=== PATIENT | female | born 1990 | race Caucasian/White ===

== ENCOUNTER → 2016-05-08 | Outpatient (CLI) | payer BC ==
[2016-05-08 10:06] LABS: CH 31.1; CHCM 34.3; HCT 40.2 % (34.0-46.0); HDW 2.89; HGB 13.2 gm/dL (11.4-16.0); MCH 30.1 pg (25.0-35.0); MCHC 32.9 g/dL (31.0-37.0); MCV 91.4 fL (80.0-100.0); Mean Platelet Volume 7.7; RDW 14.1 % (11.5-15.5); WBC 5.3 k/uL (3.8-10.6)
[2016-05-08 10:22] LABS: Glucose 96 mg/dL (74-99); Non-African American GFR(MDRD) >60 (>60 ml/min/1.73 sqM)
[2016-05-08 10:53] LABS: Hepatitis B Surface Ag Index 0.06
== END | disposition home or self-care (01) ==
LOC: LABWHC1 09:40
PROVIDERS: ATTEND Obstetrics & Gynecology
DX: Z34.82 Encounter for supervision of other normal pregnancy, second trimester (principal); Z3A.00 Weeks of gestation of pregnancy not specified
CPT/HCPCS: 36415; 82565; 82947; 85027; 86762; 86780; 86850; 86900; 86901; 87340

== ENCOUNTER → 2016-08-03 | Outpatient (CLI) | payer BC ==
[2016-08-03 10:44] LABS: CHCM 33.8; HCT 34.7 % (34.0-46.0); HDW 3.38; HGB 11.6 gm/dL (11.4-16.0); MCHC 33.5 g/dL (31.0-37.0); MCV 92.3 fL (80.0-100.0); Mean Platelet Volume 7.6; RBC 3.76 m/uL (3.80-5.40); RDW 15.1 % (11.5-15.5); WBC 9.8 k/uL (3.8-10.6)
== END ==
LOC: LABWHC1 09:07
PROVIDERS: ATTEND Obstetrics & Gynecology
DX: Z34.92 Encounter for supervision of normal pregnancy, unspecified, second trimester (principal); Z3A.00 Weeks of gestation of pregnancy not specified
CPT/HCPCS: 36415; 82950; 85027

== ENCOUNTER → 2016-09-21 | Outpatient (CLI) | payer BC ==
[2016-09-21 12:14] LABS: Hemoglobin A1C 4.8 % (4.2-6.1)
== END | disposition home or self-care (01) ==
LOC: LABWHC1 09:38
PROVIDERS: ATTEND Pediatrics Neonatal-Perinatal Medicine
DX: O24.414 Gestational diabetes mellitus in pregnancy, insulin controlled (principal); Z3A.00 Weeks of gestation of pregnancy not specified
CPT/HCPCS: 36415; 82947; 83036

== ENCOUNTER 2016-10-03 09:02 | Outpatient (CLI) | payer BC ==
[2016-10-03 10:35] VITALS: BP 130/63; PULSE 101; RESP 18; TEMP 98.2
--- NOTE | 2016-10-05 18:51 | P.MSEPDOC ---
Presenting Problems - Arrival Data Date of Arrival on Unit: 10/03/16 Time of Arrival on Unit: 09:00 Mode of Transport: Ambulatory - Complaint OB-Reason for Admission/Chief Complaint: Decreased Movement Medical History - Information : 3 Para: 2 Term: 2 : 0 Abortions: Spontaneous or Elective: 0 Number of Living Children: 2 - Gestational Age Expected Date of Delivery: 11/13/16 Gestational Age by JANETTE (wks/days): 34 Weeks and 3 Days - History Complications: GDM Comment: insulin controlled gest diabetes Review of Systems - Review of Systems Constitutional: No problems Breast: No problems ENT: No problems Cardiovascular: No problems Respiratory: No problems Gastrointestinal: No problems Genitourinary: No problems Musculoskeletal: No problems Neurological: No problems Skin: No problems Vital Signs - Temperature Temperature: 98.2 F Temperature Source: Oral - Pulse Right Brachial Pulse Rate: 101 Pulse Assessment Method: Automatic Cuff - Respirations Respiratory Rate: 18 Oxygen Delivery Method: Room Air O2 Sat by Pulse Oximetry: 97 - Blood Pressure Right Arm Blood Pressure: 130/63 Blood Pressure Mean: 85 Blood Pressure Source: Automatic Cuff Medical Screen Scoring (Pre) - Cervical Exam Dilation: Exam Deferred Effacement: Exam Deferred Membranes: Intact - Uterine Contractions Frequency: N/A Duration: N/A Intensity: N/A - Maternal Vital Signs Maternal Temperature: N/A Maternal Blood Pressure: N/A Signs of Preeclampsia: N/A Maternal Respirations: N/A - Maternal Trauma Maternal Trauma: N/A - Assessment Baseline FHR: 150 Heart Rate - NICHD Category: Category I (Normal) = 0 NST: Reactive Position: N/A Station: N/A - Total Score Total Score (Pre): 0 - Level of Risk Level of Risk: N/A Physician Notification (Pre) - Physician Notified Physician/Practitioner Notifed:: TONYA Spoke With: TONYA New Order Received: Yes - Notification Comment Comment: DISCH HOME Medical Screen Scoring (Post) - Cervical Exam Dilation: Exam Deferred Effacement: Exam Deferred Membranes: Intact - Uterine Contractions Frequency: N/A Duration: N/A Intensity: N/A - Maternal Vital Signs Maternal Temperature: N/A Maternal Blood Pressure: N/A Signs of Preeclampsia: N/A Maternal Respirations: N/A - Maternal Trauma Maternal Trauma: N/A - Assessment Heart Rate: 150 Heart Rate - NICHD Category: Category I (Normal) = 0 Position: N/A Station: N/A - Total Score Total Score (Post): 0 - Post Treatment Level of Risk Post Treatment Level of Risk: N/A Physician Notification (Post) - Physician Notified Physician Notified Date: 10/03/16 Physician Notified Time: 09:30 Physician/Practitioner Notified:: tonya Spoke With: tonya New Order Received: Yes - Notification Comment Comment: disch home Disposition - Disposition OB Disposition: Discharge to home Discharge Date: 10/03/16 Discharge Time: 09:45 I agree with the RN Medical Screening Exam: Yes Risk & Benefit of care provided described in d/c instruction: Yes Diagnosis: DECREASED MOVEMENTS, THIRD TRIMESTER, UNSP
== END 2016-10-03 09:45 | disposition home or self-care (01) ==
LOC: FBPOP 09:02
PROVIDERS: ATTEND Obstetrics & Gynecology
DX: O36.8130 Decreased fetal movements, third trimester, not applicable or unspecified (principal); Z3A.34 34 weeks gestation of pregnancy
CPT/HCPCS: 59025; 99213

== ENCOUNTER 2016-10-11 13:04 | Outpatient (CLI) | payer BC ==
[2016-10-11 13:35] VITALS: BP 133/64; PULSE 109; RESP 16; TEMP 96.5
--- NOTE | 2016-10-11 17:33 | P.MSEPDOC ---
Presenting Problems - Arrival Data Date of Arrival on Unit: 10/11/16 Time of Arrival on Unit: 13:04 Mode of Transport: Ambulatory - Complaint OB-Reason for Admission/Chief Complaint: Rule Out PROM Medical History - Information : 3 Para: 2 Term: 2 : 0 Abortions: Spontaneous or Elective: 0 Number of Living Children: 2 - Gestational Age Expected Date of Delivery: 11/13/16 Gestational Age by JANETTE (wks/days): 35 Weeks and 2 Days - History Complications: GDM Review of Systems - Review of Systems Constitutional: No problems Breast: No problems ENT: No problems Cardiovascular: No problems Respiratory: No problems Gastrointestinal: No problems Genitourinary: No problems Musculoskeletal: No problems Neurological: No problems Skin: No problems Vital Signs - Temperature Temperature: 96.5 F Temperature Source: Temporal Artery Scan - Pulse Right Brachial Pulse Rate: 109 Pulse Assessment Method: Automatic Cuff - Respirations Respiratory Rate: 16 Oxygen Delivery Method: Room Air O2 Sat by Pulse Oximetry: 96 - Blood Pressure Right Arm Blood Pressure: 133/64 Blood Pressure Mean: 87 Blood Pressure Source: Automatic Cuff Medical Screen Scoring (Pre) - Cervical Exam Dilation: 1-3 cm = 1 Effacement: More than 50% = 2 Membranes: Intact - Uterine Contractions Frequency: N/A Duration: > 40 seconds = 2 Intensity: N/A - Maternal Vital Signs Maternal Temperature: N/A Maternal Blood Pressure: N/A Signs of Preeclampsia: N/A Maternal Respirations: N/A - Maternal Trauma Maternal Trauma: N/A - Assessment Baseline FHR: 145 Heart Rate - NICHD Category: Category I (Normal) = 0 NST: Reactive Position: N/A Station: N/A - Total Score Total Score (Pre): 5 - Level of Risk Level of Risk: Low (0-5) Physician Notification (Pre) - Physician Notified Physician Notified Date: 10/11/16 Physician Notified Time: 13:45 Physician/Practitioner Notifed:: Dr Zelaya Spoke With: Dr Zelaya New Order Received: Yes (ks home) Disposition - Disposition OB Disposition: Discharge to home, Written follow up instructions reviewed Discharge Date: 10/11/16 Discharge Time: 13:55 I agree with the RN Medical Screening Exam: Yes Risk & Benefit of care provided described in d/c instruction: Yes Diagnosis: 35 WEEKS GESTATION OF
== END 2016-10-11 13:55 | disposition home or self-care (01) ==
LOC: FBPOP 13:04
PROVIDERS: ATTEND Obstetrics & Gynecology
DX: O26.93 Pregnancy related conditions, unspecified, third trimester (principal); Z3A.35 35 weeks gestation of pregnancy
CPT/HCPCS: 59025; 84112; 99213

== ENCOUNTER 2016-10-28 21:00 | Outpatient (CLI) | payer BC ==
[2016-10-28 21:13] LABS: Glucose,Whole Blood 179 mg/dL (75-99)
[2016-10-28 23:20] VITALS: BP 135/68; PULSE 107; RESP 18; TEMP 97.4
--- NOTE | 2016-10-29 07:45 | P.MSEPDOC ---
Presenting Problems - Arrival Data Date of Arrival on Unit: 10/28/16 Time of Arrival on Unit: 21:03 Mode of Transport: Wheelchair - Complaint OB-Reason for Admission/Chief Complaint: Possible Onset of Labor Medical History - Information : 3 Para: 2 Term: 2 : 0 Abortions: Spontaneous or Elective: 0 Number of Living Children: 2 - Gestational Age Expected Date of Delivery: 11/13/16 Gestational Age by JANETTE (wks/days): 37 Weeks and 6 Days - History Complications: GDM, Prior Review of Systems - Review of Systems Constitutional: No problems Breast: No problems ENT: No problems Cardiovascular: No problems Respiratory: No problems Gastrointestinal: No problems Genitourinary: No problems Musculoskeletal: No problems Neurological: No problems Skin: No problems Vital Signs - Temperature Temperature: 97.4 F Temperature Source: Temporal Artery Scan - Pulse Right Brachial Pulse Rate: 107 Pulse Assessment Method: Automatic Cuff - Respirations Respiratory Rate: 18 Oxygen Delivery Method: Room Air - Blood Pressure Right Arm Blood Pressure: 135/68 Blood Pressure Mean: 90 Blood Pressure Source: Automatic Cuff Medical Screen Scoring (Pre) - Cervical Exam Dilation: 1-3 cm = 1 Effacement: Exam Deferred Membranes: Intact - Uterine Contractions Frequency: Scheduled / = 6 Duration: > 40 seconds = 2 - Maternal Vital Signs Maternal Temperature: N/A Maternal Blood Pressure: N/A Signs of Preeclampsia: N/A Maternal Respirations: N/A - Maternal Trauma Maternal Trauma: N/A - Assessment Baseline FHR: 145 Heart Rate - NICHD Category: Category I (Normal) = 0 NST: Reactive Position: N/A Station: +1 to = 1 - Total Score Total Score (Pre): 10 - Level of Risk Level of Risk: High (10+) Physician Notification (Pre) - Physician Notified Physician Notified Date: 10/28/16 Physician Notified Time: 22:40 Physician/Practitioner Notifed:: Dr. Cruz Spoke With: Dr. Cruz New Order Received: Yes - Notification Comment Comment: recheck cervical exam in one hour, if no change dischage pt home Medical Screen Scoring (Post) - Cervical Exam Dilation: 1-3 cm = 1 Effacement: More than 50% = 2 Membranes: Intact - Uterine Contractions Frequency: > 5 minutes apart = 1 Duration: N/A Intensity: N/A - Maternal Vital Signs Maternal Temperature: N/A Maternal Blood Pressure: N/A Signs of Preeclampsia: N/A Maternal Respirations: N/A - Maternal Trauma Maternal Trauma: N/A - Assessment Heart Rate: 145 Heart Rate - NICHD Category: Category I (Normal) = 0 NST: Reactive Position: N/A - Total Score Total Score (Post): 4 - Post Treatment Level of Risk Post Treatment Level of Risk: Low (0-5) Physician Notification (Post) - Physician Notified Physician Notified Date: 10/28/16 Physician Notified Time: 22:40 Physician/Practitioner Notified:: Dr. Cruz Spoke With: Dr. Cruz New Order Received: Yes - Notification Comment Comment: pt to be discharged home if no cervical change Disposition - Disposition OB Disposition: Discharge to home, Written follow up instructions reviewed Discharge Date: 10/29/16 Discharge Time: 00:05 I agree with the RN Medical Screening Exam: Yes Risk & Benefit of care provided described in d/c instruction: Yes Diagnosis: FALSE LABOR AT OR AFTER 37 COMPLETED WEEKS OF GESTATION
== END 2016-10-29 00:05 | disposition home or self-care (01) ==
LOC: FBPOP 21:00
PROVIDERS: ATTEND Obstetrics & Gynecology
DX: O47.1 False labor at or after 37 completed weeks of gestation (principal); Z3A.37 37 weeks gestation of pregnancy
CPT/HCPCS: 59025; 99213

== ENCOUNTER 2016-11-01 12:02 | Outpatient (CLI) | payer BC | END 2016-11-01 12:59 | disposition home or self-care (01) | LOC: FBPOP 12:02 | PROVIDERS: ATTEND Obstetrics & Gynecology | DX: O26.93 Pregnancy related conditions, unspecified, third trimester (principal); Z3A.38 38 weeks gestation of pregnancy | CPT/HCPCS: 59025; 99213 ==

== ENCOUNTER 2016-11-04 06:16 | Inpatient (IN) | payer BC ==
[2016-11-03 14:06] VITALS: BMI 42.8
--- NOTE | 2016-11-03 20:35 | P.HPOB ---
History of Present Illness H&P Date: 11/03/16 Chief Complaint: Scheduled repeat section with tubal ligation This is a 26-year-old female 3 para 2, with an estimated gestational age of 39 weeks, estimated date of confinement of 11/11/2016, who presents to labor and delivery for scheduled repeat section with bilateral partial salpingectomy. She has a history of 2 previous deliveries. Her has been complicated by gestational diabetes on insulin. This has been fairly well-controlled with increasing insulin doses. She has felt frequent contractions. She does feel good movement. She has been doing twice weekly nonstress tests and has followed with maternal medicine due to gestational diabetes. labs: Random glucose-96 Hepatitis B surface antigen-negative Hemoglobin-13.2 Syphilis antibody-nonreactive Rubella-low positive Blood type-O+ Antibody screen-negative GC/chlamydia-negative One hour Glucola-208 Group B streptococcus-negative Review of Systems Constitutional: Denies chills, Denies fever Eyes: denies blurred vision Ears, nose, mouth and throat: Denies headache, Denies sore throat Cardiovascular: Reports dyspnea on exertion, Reports leg edema, Reports shortness of breath Respiratory: Denies cough, Denies wheezing Gastrointestinal: Reports abdominal pain (Irregular contractions) Genitourinary: Reports pelvic pain, Reports Musculoskeletal: Reports low back pain Integumentary: Denies pruritus, Denies rash Psychiatric: Denies anxiety, Denies depression Past Medical History Past Medical History: Asthma Additional Past Medical History / Comment(s): gestational DIABETES History of Any Multi-Drug Resistant Organisms: None Reported Past Surgical History: Section (x2), Cholecystectomy Past Anesthesia/Blood Transfusion Reactions: No Reported Reaction Past Psychological History: No Psychological Hx Reported Smoking Status: Never smoker Past Alcohol Use History: None Reported Past Drug Use History: None Reported - Past Family History Mother Family Medical History: No Reported History Medications and Allergies Home Medications Medication Instructions Recorded Confirmed Type Pnv,Calcium 72/Iron/Folic Acid 1 tab PO DAILY 07/21/16 11/03/16 History [ Plus Tablet] Insulin Detemir [Levemir] 36 unit SQ HS 10/03/16 11/03/16 History Insulin Aspart [NovoLOG Flexpen] 12 units SQ AC-BRKFST 10/28/16 11/03/16 History Insulin Aspart [NovoLOG Flexpen] 14 units SQ AC-BID 10/28/16 11/03/16 History Allergies Allergy/AdvReac Type Severity Reaction Status Date / Time Penicillins Allergy Intermediate Rash/Hives Verified 11/03/16 14:00 Sulfa (Sulfonamide Allergy Swelling Verified 11/03/16 14:00 Antibiotics) shrimp Allergy Anaphylaxis Uncoded 11/03/16 14:00 Exam Osteopathic Statement: *. No significant issues noted on an osteopathic structural exam other than those noted in the History and Physical/Consult. - Vital Signs Vital signs: Intake and Output 11/03/16 11/03/16 11/03/16 06:59 14:59 22:59 Other: Weight 109.769 kg Patient Weight 11/04/16 06:59 Weight 109.769 kg HEENT: Within normal limits Heart: Regular rate and rhythm Lungs: Clear to auscultation bilaterally Abdomen: , fundal height of 46-1/2 cm heart tones: 140s, reactive Contractions: Irregular Extremities: Trace edema Cervix exam at her last appointment was 2-1/2 cm/60%/-3. Assessment and Plan (1) 39 weeks gestation of Status: Acute (2) Previous delivery affecting Status: Acute (3) Family planning Status: Acute (4) Gestational diabetes mellitus in , insulin controlled Status: Acute Plan: Plan is to proceed with repeat section with bilateral partial salpingectomy. Will monitor her blood sugars after delivery due to gestational diabetes on insulin. I have discussed the risks, benefits, and alternative therapies for the above- mentioned procedure and for both sedation/anesthesia as well as necessary blood products administration, if indicated, as they pertain to this patient. The patient has indicated her understanding and acceptance of the risks and procedures discussed.
[2016-11-04] MEDS ORDERED: LIDOCAINE 1% 20 ML VIAL (10MG/ML) FOR IV START INTRADERMA PRN (06:18)
[2016-11-04] MEDS ORDERED: CITRIC ACID-SODIUM CITRATE 15 ML CUP PO ONE (06:18)
[2016-11-04] MEDS ORDERED: LACTATED RINGERS 1,000 ML IV ONE (06:18)
[2016-11-04] MEDS ORDERED: CLINDAMYCIN 900 MG in DEXTROSE 5% IN WATER 50 ML IVPB STA ×2 (06:18)
[2016-11-04] MEDS ORDERED: LACTATED RINGERS 1,000 ML IV SCH ×2 (06:18→09:00)
[2016-11-04 06:29] LABS: Anisocytosis Slight; Basophils # (A) 0.1 k/uL (0-0.2); Basophils % (A) 1 %; CH 27.3; CHCM 33.2; Eosinophils # (A) 0.1 k/uL (0-0.7); Eosinophils % (A) 2 %; HCT 31.3 % (34.0-46.0); HDW 4.12; HGB 10.4 gm/dL (11.4-16.0); Hypochromasia Slight; Luc # (Auto) 0.23; Luc % (Auto) 3; Lymphocytes # (A) 0.9 k/uL (1.0-4.8); Lymphocytes % (A) 10 %; MCH 27.7 pg (25.0-35.0); MCHC 33.4 g/dL (31.0-37.0); MCV 82.9 fL (80.0-100.0); Mean Platelet Volume 8.5; Monocytes # (A) 0.4 k/uL (0-1.0); Monocytes % (A) 5 %; Neutrophils # (A) 7.1 k/uL (1.3-7.7); Neutrophils % (A) 80 %; Poikilocytosis Moderate; RBC 3.77 m/uL (3.80-5.40); RDW 16.3 % (11.5-15.5); WBC 8.9 k/uL (3.8-10.6); WBC (Perox) 8.43
[2016-11-04 06:39] LABS: Glucose,Whole Blood 91 mg/dL (75-99)
[2016-11-04] MEDS ORDERED: OXYTOCIN 10 UNIT/ML 1 ML VIAL ONE (08:00)
[2016-11-04] MEDS ORDERED: MORPHINE SULFATE (PF) 0.3 MG/0.3 ML SYR ONE (08:00)
[2016-11-04] MEDS ORDERED: NALBUPHINE 10 MG/ML AMPUL ONE (08:00)
[2016-11-04] MEDS ORDERED: ONDANSETRON 4 MG/2 ML VIAL ONE (08:00)
[2016-11-04] MEDS ORDERED: MORPHINE SULFATE 4 MG/ML SYRINGE IVP PRN (08:44)
[2016-11-04] MEDS ORDERED: diphenhydrAMINE 50 MG/ML 1 ML VIAL IVP PRN ×3 (08:44→09:00)
[2016-11-04] MEDS ORDERED: ONDANSETRON 4 MG/2 ML VIAL IVP PRN ×2 (08:44→09:00)
[2016-11-04] MEDS ORDERED: NALOXONE 0.4 MG/ML 1 ML VIAL IV PRN ×2 (08:44→09:00)
--- NOTE | 2016-11-04 08:48 | P.OP ---
Date of Procedure: 11/04/16 Preoperative Diagnosis: 1. Intrauterine at 39-0/7 weeks. 2. History of previous section 2. 3. Family-planning. 4. Gestational diabetes on insulin. Postoperative Diagnosis: Same Procedure(s) Performed: Repeat low transverse section with bilateral partial salpingectomy Implants: Anesthesia: spinal (Duramorph) Surgeon: Yvonne Cruz Hotel Attendant #1: Sung Bennett Estimated Blood Loss (ml): 400 Pathology: other (Placenta, portions of right and left fallopian tubes) Condition: stable Disposition: floor Indications for Procedure: This is a 26-year-old female 3 para 2 with an estimated date of confinement of 11/11/2016, estimated gestational age of 39-0/7 weeks, who presents to labor and delivery for scheduled repeat section with bilateral partial salpingectomy. I have discussed the risks, benefits, and alternative therapies for the above- mentioned procedure and for both sedation/anesthesia as well as necessary blood products administration, if indicated, as they pertain to this patient. The patient has indicated her understanding and acceptance of the risks and procedures discussed. Operative Findings: A viable female is noted in the vertex presentation with scores of 9 at 1 minute and 9 at 5 minutes and infant weight of 10 lbs. 1 oz. Normal uterus tubes and ovaries are noted. There were noted to be some omental adhesions to the anterior abdominal wall. Description of Procedure: The patient is taken to the operating room where she is placed in the dorsal supine position with leftward tilt after spinal Duramorph anesthesia is given. She is prepped and draped in the normal sterile fashion. Skin was tested and found to be adequately anesthetized. A Pfannenstiel skin incision was made with a scalpel through the previous laparotomy scar. A second knife was used to carry the incision down to the underlying layer of fascia. The fascia was nicked in the midline with a scalpel and then extended laterally bilaterally with Madsne scissors. The anterior lip of the fascia was grasped with 2 Bea clamps and then dissected off the underlying rectus muscle in the midline with Madsen scissors. The inferior aspect of the fascial incision was grasped with 2 Bea clamps and dissected off the underlying rectus muscle and the midline with Madsen scissors. Next the peritoneum layer was tented up with 2 hemostats and then entered bluntly with a hemostat. The incision is extended superiorly and inferiorly with Metzenbaum scissors. Omental adhesions are noted to be attached to the anterior abdominal wall. Next a DeLee retractor is placed. The vesicouterine peritoneum is entered sharply with Metzenbaum scissors and extended laterally bilaterally with Metzenbaum scissors and then the bladder flap is pushed inferiorly. The lower uterine segment is incised in transverse fashion with the scalpel and then bluntly entered with a hemostat. Clear fluid is noted. The incision was then extended laterally bilaterally with 2 fingers. Next the infant's head is delivered through the incision. Nose and mouth are bulb suctioned. The remainder of the is easily delivered and placed on mother's abdomen. Cord is clamped and cut. is taken to warmer by nursing staff. Uterine fundus is gently massaged and placenta is delivered manually. Uterus is exteriorized and cleared of all clots and debris. Uterine incision is closed with 0 Vicryl suture in a running locked fashion. A second layer of 0 Vicryl suture is used in a running fashion for hemostasis. The bladder flap was not reapproximated due to previous scarring. Attention is then turned to the tubes. The right fallopian tube is grasped in the midportion with a hemostat. The mesosalpinx is entered with Bovie cautery. Next 0 Vicryl suture is tied 2 times around both the proximal and distal portion of the tube. Next the knuckle of tube is removed with Metzenbaum scissors and removed from the field. The ends of the tube were then cauterized with Bovie cautery. Excellent hemostasis is noted. The same procedure is carried out on the left fallopian tube. Posterior cul-de-sac is suctioned of all clots and debris. Uterus is returned to the abdomen. Incision is noted to be hemostatic. Both tubal sites are visualized and appear hemostatic. Peritoneal layer is closed with 0 Vicryl suture in a running fashion. Muscle layer is reapproximated with 0 Vicryl suture in interrupted fashion. Fascia layer is then closed with 0 PDS suture with 2 sutures meeting in the midline and the knots buried in either side and in the midline. The subcutaneous tissue was then closed with 2-0 Vicryl suture. Skin layer was then closed with huong. All sponge and needle counts are correct. The patient is taken to recovery room in stable condition.
[2016-11-04] MEDS ORDERED: SIMETHICONE 80 MG CHEWABLE PO PRN (09:00)
[2016-11-04] MEDS ORDERED: OXYTOCIN 20 UNITS/1000 ML NS 1,000 ML IV SCH (09:00)
[2016-11-04] MEDS ORDERED: LANOLIN CREAM 5 GM TUBE TOPICAL PRN (09:00)
[2016-11-04] MEDS ORDERED: ZOLPIDEM 5 MG TAB PO PRN (09:00)
[2016-11-04] MEDS ORDERED: diphenhydrAMINE 25 MG CAP PO PRN (09:00)
[2016-11-04] MEDS ORDERED: diphenhydrAMINE 50 MG CAP PO PRN (09:00)
[2016-11-04] MEDS ORDERED: MEASLES-MUMPS-RUBELLA VACC/PF 12,500 UNIT/0.5 ML VIAL SQ ONE (09:00)
[2016-11-04] MEDS ORDERED: ACETAMINOPHEN TAB 325 MG TAB PO PRN (09:00)
[2016-11-04] MEDS ORDERED: METOCLOPRAMIDE 5 MG/ML 2 ML VIAL IVP PRN (09:00)
[2016-11-04] MEDS ORDERED: Acetaminophen-Codeine 300-30mg TAB PO PRN (09:00)
[2016-11-04] MEDS: KETOROLAC 30 MG/ML 1 ML VIAL IVP PRN ×2 (09:42→16:45)
[2016-11-04 10:45] LABS: Hemoglobin A1C 5.3 % (4.2-6.1)
[2016-11-04 10:57] LABS: Glucose,Whole Blood 89 mg/dL (75-99)
[2016-11-04 12:11] LABS: Glucose,Whole Blood 93 mg/dL (75-99)
[2016-11-04] MEDS: PRENATAL VIT-IRON-FOLIC ACID 1 EACH CAP PO SCH (13:48)
[2016-11-04] MEDS: SENNOSIDES-DOCUSATE SODIUM 1 EACH TAB PO SCH ×2 (13:48→23:08)
[2016-11-04 14:32] LABS: Glucose,Whole Blood 103 mg/dL (75-99)
[2016-11-04 18:08] LABS: Glucose,Whole Blood 95 mg/dL (75-99)
[2016-11-04 18:30] LABS: Glucose,Whole Blood 93 mg/dL (75-99)
[2016-11-04 21:30] LABS: Glucose,Whole Blood 101 mg/dL (75-99)
[2016-11-05] MEDS: KETOROLAC 30 MG/ML 1 ML VIAL IVP PRN ×2 (02:26→09:57)
[2016-11-05 07:41] LABS: Anisocytosis Slight; Basophils % (A) 0 %; CH 26.7; CHCM 31.8; Eosinophils # (A) 0.1 k/uL (0-0.7); Eosinophils % (A) 1 %; HCT 29.5 % (34.0-46.0); HDW 4.12; HGB 9.5 gm/dL (11.4-16.0); Hypochromasia Moderate; Luc # (Auto) 0.23; Luc % (Auto) 3; Lymphocytes # (A) 0.7 k/uL (1.0-4.8); Lymphocytes % (A) 9 %; MCH 27.4 pg (25.0-35.0); MCHC 32.3 g/dL (31.0-37.0); MCV 84.8 fL (80.0-100.0); Mean Platelet Volume 8.4; Monocytes # (A) 0.4 k/uL (0-1.0); Monocytes % (A) 5 %; Neutrophils # (A) 6.6 k/uL (1.3-7.7); Neutrophils % (A) 81 %; Poikilocytosis Moderate; RBC 3.47 m/uL (3.80-5.40); RDW 16.5 % (11.5-15.5); WBC 8.1 k/uL (3.8-10.6); WBC (Perox) 8.47
[2016-11-05] MEDS ORDERED: NALBUPHINE 10 MG/ML AMPUL ONE (08:00)
[2016-11-05] MEDS ORDERED: ONDANSETRON 4 MG/2 ML VIAL ONE (08:00)
[2016-11-05] MEDS ORDERED: OXYTOCIN 10 UNIT/ML 1 ML VIAL ONE (08:00)
[2016-11-05] MEDS ORDERED: MORPHINE SULFATE (PF) 0.3 MG/0.3 ML SYR ONE (08:00)
[2016-11-05 08:05] LABS: Glucose,Whole Blood 99 mg/dL (75-99)
--- NOTE | 2016-11-05 08:52 | P.PNOBGPC ---
Subjective - Subjective Principal diagnosis: Status post repeat section with tubal postoperative day #1 Interval history: Patient is doing well. She is passing flatus but no bowel movement yet. She is ambulating. Pain is fairly well controlled. She is still not been able to urinate yet. This did happen last and she was able to urinate once she got shower. Will attempt that this morning. Patient reports: Reports appetite normal, Reports pain well controlled, Reports ambulating normally, Denies voiding normally : doing well, nursing well Objective - Vital Signs Latest vital signs: Vital Signs Temp Pulse Resp BP Pulse Ox 11/05/16 04:00 98.3 F 73 18 100/51 98 11/04/16 23:48 98.6 F 78 18 118/60 98 11/04/16 20:00 98.6 F 73 16 115/68 97 11/04/16 16:00 98.2 F 72 16 111/62 99 11/04/16 12:00 97 11/04/16 10:37 97.7 F 93 16 102/53 11/04/16 10:20 97.8 F 11/04/16 10:07 85 16 119/60 11/04/16 09:45 97 11/04/16 09:37 81 16 119/55 11/04/16 09:22 98.1 F 79 16 134/64 11/04/16 09:07 82 16 132/70 11/04/16 08:52 92 16 132/70 Intake and Output 11/04/16 11/05/16 11/05/16 22:59 06:59 14:59 Intake Total 400 Output Total 20 1000 Balance 380 -1000 Intake: IV 400 Invasive Line 1 400 Output: Urine 20 600 Uretheral (Simpson) 600 Estimated Blood Loss 400 Other: # Voids 1 0 - Exam Extremities: Present: normal, edema (Trace). Absent: tenderness Abdomen: Present: normal appearance, soft (Positive bowel sounds 4). Absent: distention, tenderness Incision: Present: normal, dry, intact. Absent: erythematous Uterus: Present: normal, firm. Absent: tenderness - Labs Labs: Abnormal Lab Results - Last 24 Hours (Table) 11/04/16 11/04/16 11/05/16 Range/Units 14:22 21:27 07:16 RBC 3.47 L (3.80-5.40) m/uL Hgb 9.5 L (11.4-16.0) gm/dL Hct 29.5 L (34.0-46.0) % RDW 16.5 H (11.5-15.5) % Plt Count 134 L (150-450) k/uL Lymphocytes # 0.7 L (1.0-4.8) k/uL POC Glucose (mg/dL) 103 H 101 H (75-99) mg/dL Assessment and Plan (1) 39 weeks gestation of Narrative/Plan: Impression is status post repeat low transverse section with bilateral partial salpingectomy postoperative day #1. Plan is to get in the shower this morning and attempt urination. If she is unable to urinate, will straight cath again. She is tolerating regular diet at this time. Pain is well-controlled. We'll continue with postoperative care and anticipate discharge home hopefully tomorrow. Current Visit: Yes Status: Acute Code(s): Z3A.39 - 39 WEEKS GESTATION OF SNOMED Code(s): 52001838 (2) Previous delivery affecting Current Visit: Yes Status: Acute Code(s): O34.219 - MATERNAL CARE FOR UNSP TYPE SCAR FROM PREVIOUS DEL SNOMED Code(s): 537111879 (3) Family planning Current Visit: Yes Status: Acute Code(s): Z30.09 - ENCOUNTER FOR OTH GENERAL CNSL AND ADVICE ON CONTRACEPTION SNOMED Code(s): 25741976 (4) Gestational diabetes mellitus in , insulin controlled Current Visit: Yes Status: Acute Code(s): O24.414 - GESTATIONAL DIABETES IN , INSULIN CONTROLLED SNOMED Code(s): 00706530
--- NOTE | 2016-11-05 09:18 | P.PN ---
Progress Note - Text 0742 Anesthesia POD 1. Patient is status post section under spinal anesthesia with intra-thecal preservative free morphine 300 g. Minimal pruritus, good post-op analgesia requiring Toradol 1, and no headache or other complication. Patient did have some bouts of nausea postoperatively, but I doubt this was related to the intrathecal narcotic it was more likely due to some adynamic ileus
[2016-11-05] MEDS: SENNOSIDES-DOCUSATE SODIUM 1 EACH TAB PO SCH ×2 (11:36→21:39)
[2016-11-05 12:22] LABS: Glucose,Whole Blood 93 mg/dL (75-99)
[2016-11-05] MEDS: IBUPROFEN 600 MG TAB PO PRN ×2 (16:32→21:49)
[2016-11-05] MEDS: Acetaminophen-Codeine 300-30mg TAB PO PRN ×2 (18:22→23:08)
[2016-11-05 21:45] LABS: Glucose,Whole Blood 121 mg/dL (75-99)
[2016-11-06] MEDS: IBUPROFEN 600 MG TAB PO PRN ×2 (03:47→11:02)
[2016-11-06] MEDS: SENNOSIDES-DOCUSATE SODIUM 1 EACH TAB PO SCH (07:40)
[2016-11-06] MEDS: Acetaminophen-Codeine 300-30mg TAB PO PRN (07:41)
[2016-11-06] MEDS: PRENATAL VIT-IRON-FOLIC ACID 1 EACH CAP PO SCH (08:11)
[2016-11-06 08:14] LABS: Glucose,Whole Blood 90 mg/dL (75-99)
[2016-11-06 09:46] VITALS: BP 122/77; PULSE 76; RESP 16; TEMP 97.7
--- NOTE | 2016-11-06 12:00 | P.DS ---
Providers Date of admission: 11/04/16 06:16 Expected date of discharge: 11/06/16 Attending physician: Yvonne Cruz Primary care physician: Stated None Hospital Course: Patient presented for repeat low transverse with tubal ligation. She underwent this procedure without complication. She'll be discharged home postoperative day #2 in stable condition to follow-up with Dr. Cruz in one week. She denies nausea, vomiting, chest pain, shortness of breath or calf pain. Her incision is clean, dry, intact. Plan - Discharge Summary New Discharge Prescriptions: New Acetaminophen-Codeine 300-30mg [Tylenol w/codeine #3] 1 each PO Q4HR PRN #30 tab PRN Reason: Mild Pain Ibuprofen [Motrin] 600 mg PO Q6HR PRN #60 tab PRN Reason: Mild Pain Or Fever >= 100.5 Continue Pnv,Calcium 72/Iron/Folic Acid [ Plus Tablet] 1 tab PO DAILY No Action Insulin Detemir [Levemir] 36 unit SQ HS Insulin Aspart [NovoLOG Flexpen] 12 units SQ AC-BRKFST Insulin Aspart [NovoLOG Flexpen] 14 units SQ AC-BID Discharge Medication List Pnv,Calcium 72/Iron/Folic Acid [ Plus Tablet] 1 tab PO DAILY 07/21/16 [ History] Insulin Detemir [Levemir] 36 unit SQ HS 10/03/16 [History] Insulin Aspart [NovoLOG Flexpen] 12 units SQ AC-BRKFST 10/28/16 [History] Insulin Aspart [NovoLOG Flexpen] 14 units SQ AC-BID 10/28/16 [History] Acetaminophen-Codeine 300-30mg [Tylenol w/codeine #3] 1 each PO Q4HR PRN #30 tab 11/05/16 [Rx] Ibuprofen [Motrin] 600 mg PO Q6HR PRN #60 tab 11/05/16 [Rx] Follow up Appointment(s)/Referral(s): Yvonne Cruz DO [Doctor of Osteopathic Medicine] - 1 Week Activity/Diet/Wound Care/Special Instructions: Instructions 1. Do not begin any exercise program for 3 weeks. 2. Do not resume sexual relations for 3 weeks or longer if uncomfortable. 3. You may take tub baths or showers at any time. 4. You may use tampons if desired after 3 weeks. 5. Keep the area of episiotomy (stitches) clean and dry. 6. If you are not nursing, wear a good fitting, supportive bra during the day and limit fluid intake for at least 1 week to prevent breast engorgement. 7. Call the office, [phone], within the next week to make appointment for your 6 week checkup if it has not already been made. 8. Report any of the following occurrences to the doctor promptly: a. Heavy, excessive bleeding b. Chills, fever c. Burning or frequency of urination d. Pain or redness and breasts if nursing e. Increasing pain or swelling in episiotomy (stitches). In addition to the above instructions, the following additional should be followed: 1. No heavy lifting or straining (exercising) until after 6 week checkup. 2. Keep abdominal incision clean and dry: You may wear a dressing if more comfortable. 3. Make office appointment for 10 days after going home or as instructed by her doctor. Discharge Disposition: HOME SELF-CARE
--- NOTE | 2016-11-09 10:38 | CDI ---
In responding to this query, please exercise your independent professional judgment. The [facility] Coding Staff and Clinical Documentation Specialists appreciate your assistance in clarifying documentation, maintaining compliance with coding guidelines, accurately documenting patients condition and capturing severity of illness. The fact that a question is asked does not imply that any particular answer is desired or expected. Communication forms are a method of clarifying documentation and are not made part of the Legal Health Record. Thank you in advance for your clarification. Last Revision, July 2015 Shekhar Hwang [address] [facility] [place] [address] Documentation Clarification Form Date: 11/09/2016 10:18:00 AM From: Glenny Schaffer Admit Date: 11/04/2016 6:16:00 AM Patient Name: Diane Paredes Visit Number: [id number] Discharge Date: 11/06/16 Dr. Yvonne Cruz The patient underwent repeat low transverse section with bilateral partial salpingectomy on 11/04. Anesthesia postop progress note 11/05 states "Yolanda did have some bouts of nauseas postoperatively, but I doubt this was related to the intrathecal narcotic it was more likely due to some adynamic ileus. She received IV Zofran. No abdominal x-rays, no NG tube, no rectal tube, no Prostimin injection and was on a regular diet. In your clinical judgment, is the adynamic ileus: A postprocedural intestional obstruction An obstructive ileus A paralytic ileus (adynamic ileus) Other, please specifiy Clinically unable to determine Please document your addendum in the discharge summary or progress note. If this condition was ruled out or documented in error, please indicate in your discharge summary or progress note. FYI: Press F11 to launch patient chart _X____ Place X here if this finding has no clinical significance, is not applicable or if you are not able to provide any additional documentation. KJ Dixon, CCS, [facility] Certified I-10 Subgrade Tester/Display Manager/Subgrade Tester II If you have any questions or concerns please contact Fany Tran, Serging Machine Operator, Shekhar Hwang @ [phone] [facility]
--- NOTE | 2016-11-09 10:57 | CDI ---
In responding to this query, please exercise your independent professional judgment. The [facility] Coding Staff and Clinical Documentation Specialists appreciate your assistance in clarifying documentation, maintaining compliance with coding guidelines, accurately documenting patients condition and capturing severity of illness. The fact that a question is asked does not imply that any particular answer is desired or expected. Communication forms are a method of clarifying documentation and are not made part of the Legal Health Record. Thank you in advance for your clarification. Last Revision, July 2015 Shekhar Hwang [address] [place] [address] Documentation Clarification Form Date: 11/09/2016 10:39:00 AM From: Glenny Sarbjit Admit Date: 11/04/2016 6:16:00 AM Patient Name: Diane Paredes Visit Number: [id number] Discharge Date: 11/06/16 Dr. Yvonne Cruz 26 year old female s/p repeat low transverse section with tubal ligation. PN 11/05 states she is unable to urinate. This happen last and she was able to urinate once she got shower. The plan, unalbe to urinate, will straight cath. Per nursing documentation she was cathed on 11/05 @ 0200 with urine output of 600 ml. Urine output 11/05 @ 0945 was 900 ml and 11/05 @ 1239 800 ml. In your clinical judgment is the urinary retention: An expected post-procedural or post-surgical condition (not clinically significant or related to) Integral to the procedure Inhernet to the procedure An unexpected post-procedural or post-surgical condition related to surgical care, Other, please specify Clinically unable to determine Please document confirmation of the diagnosis in your progress notes and/or discharge summary, along with its associated clinical indicators (i.e., signs, symptoms, findings, treatments, monitoring). If this condition was ruled out or documented in error, please indicate in your progress notes and/or discharge summary. FYI: Press F11 to launch patient chart Place X here if this finding has no clinical significance, is not applicable or if you are not able to provide any additional documentation. KJ Dixon, [facility], [facility] Certified I-10 Crystal Flat Grinder/Student Development Coordinator/Crystal Flat Grinder II If you have any questions or concerns please contact Fany Tran, Director Business Integration, Shekhar Hwang @ [phone] [facility]
== END 2016-11-06 13:10 | disposition home or self-care (01) | DRG 766 ==
LOC: 4FBP 06:16
PROVIDERS: ADMIT Obstetrics & Gynecology; ATTEND Obstetrics & Gynecology
PROC: 0UB70ZZ Excision of Bilateral Fallopian Tubes, Open Approach (ICD-10-PCS; 2016-11-04)
PROC: 3E0134Z Introduction of Serum, Toxoid and Vaccine into Subcutaneous Tissue, Percutaneous Approach (ICD-10-PCS; 2016-11-04)
PROC: 10D00Z1 Extraction of Products of Conception, Low, Open Approach (ICD-10-PCS; principal; 2016-11-04 08:00)
DX: O34.211 Maternal care for low transverse scar from previous cesarean delivery (principal); O24.424 Gestational diabetes mellitus in childbirth, insulin controlled; J45.909 Unspecified asthma, uncomplicated; O99.52 Diseases of the respiratory system complicating childbirth; R33.9 Retention of urine, unspecified; Z23 Encounter for immunization; Z30.2 Encounter for sterilization; Z37.0 Single live birth; Z3A.39 39 weeks gestation of pregnancy; Z79.4 Long term (current) use of insulin; Z79.899 Other long term (current) drug therapy
CPT/HCPCS: 83036; 85025; 86850; 86900; 86901; 88302; 88307; 90471; 90707

== ENCOUNTER 2017-07-12 10:56 | Emergency (ER) | payer BC, MEDICAID ==
[2017-07-12 11:46] VITALS: RESP 18
[2017-07-12] MEDS ORDERED: ONDANSETRON 4 MG/2 ML VIAL IVP STA (13:43)
[2017-07-12] MEDS ORDERED: SODIUM CHLORIDE 0.9% 500 ML IV STA (13:43)
[2017-07-12] MEDS ORDERED: SODIUM CHLORIDE 0.9% 1,000 ML IV STA (13:43)
[2017-07-12] MEDS ORDERED: RX INFO: IV CONTRAST WAS GIVEN 1 EACH MISC MISCELLANE PRN (13:53)
[2017-07-12 14:25] LABS: Glucose,Whole Blood 94 mg/dL (75-99)
--- NOTE | 2017-07-12 14:38 | ED ---
General Adult HPI - General Chief complaint: Nausea/Vomiting/Diarrhea Stated complaint: Vomiting/diarrhea Time Seen by Provider: 07/12/17 13:43 Source: patient, RN notes reviewed Mode of arrival: ambulatory Limitations: no limitations - History of Present Illness Initial comments: This a 27-year-old female presents emergency Department with chief complaint abdominal pain, nausea vomiting diarrhea. Patient states that she's had some discomfort in right lower quadrant last 2 days but developed nausea vomiting diarrhea for last 24 hours. She states that she cannot urinate down. Denies any known fever. Denies any chance . Patient's had a prior cholecystectomy, sections. Patient states pain is not worse with movement. She states it does get worse right before she vomits and alleviate some. - Related Data Home Medications Medication Instructions Recorded Confirmed Ondansetron Odt [Zofran Odt] 4 mg PO Q12HR PRN 07/12/17 07/12/17 Previous Rx's Medication Instructions Recorded Acetaminophen-Codeine 300-30mg 1 tab PO Q4H PRN #20 tablet 07/12/17 [Tylenol #3] Dicyclomine [Bentyl] 20 mg PO TID #30 tablet 07/12/17 Ondansetron Odt [Zofran Odt] 4 mg PO Q8HR PRN #10 tab 07/12/17 Allergies Allergy/AdvReac Type Severity Reaction Status Date / Time Penicillins Allergy Intermediate Rash/Hives Verified 07/12/17 15:44 Sulfa (Sulfonamide Allergy Swelling Verified 07/12/17 15:44 Antibiotics) shrimp Allergy Anaphylaxis Uncoded 07/12/17 11:47 Review of Systems ROS Statement: Those systems with pertinent positive or pertinent negative responses have been documented in the HPI. ROS Other: All systems not noted in ROS Statement are negative. Past Medical History Past Medical History: Asthma Additional Past Medical History / Comment(s): gestational DIABETES History of Any Multi-Drug Resistant Organisms: None Reported Past Surgical History: Section, Cholecystectomy Past Anesthesia/Blood Transfusion Reactions: No Reported Reaction Past Psychological History: No Psychological Hx Reported Smoking Status: Never smoker Past Alcohol Use History: None Reported Past Drug Use History: None Reported - Past Family History Mother Family Medical History: No Reported History General Exam Limitations: no limitations General appearance: alert, in no apparent distress Head exam: Present: atraumatic, normocephalic, normal inspection Neck exam: Present: normal inspection, full ROM. Absent: tenderness, meningismus, lymphadenopathy Respiratory exam: Present: normal lung sounds bilaterally. Absent: respiratory distress, wheezes, rales, rhonchi, stridor Cardiovascular Exam: Present: regular rate, normal rhythm, normal heart sounds. Absent: systolic murmur, diastolic murmur, rubs, gallop, clicks GI/Abdominal exam: Present: soft, tenderness (Mild right lower quadrant tenderness), normal bowel sounds. Absent: distended, guarding, rebound, rigid Back exam: Absent: CVA tenderness (R), CVA tenderness (L) Skin exam: Present: warm, dry, intact, normal color. Absent: rash Course Vital Signs 07/12/17 11:44 Temperature 99.0 F Pulse Rate 102 H Respiratory 18 Rate Blood Pressure 119/59 O2 Sat by Pulse 98 Oximetry Medical Decision Making - Medical Decision Making 27-year-old female presented emergency department for nausea vomiting abdominal discomfort. Patient denies diarrhea. CT shows evidence of enteritis. There is no evidence of acute appendicitis. Patient be discharged at this time. Patient was discharged with antiemetics, and pain medication - Lab Data Result diagrams: 07/12/17 14:30 07/12/17 14:30 Lab Results 07/12/17 07/12/17 07/12/17 Range/Units 13:42 14:30 14:30 WBC 7.0 (3.8-10.6) k/uL RBC 5.24 (3.80-5.40) m/uL Hgb 15.0 (11.4-16.0) gm/dL Hct 45.0 (34.0-46.0) % MCV 85.8 (80.0-100.0) fL MCH 28.5 (25.0-35.0) pg MCHC 33.3 (31.0-37.0) g/dL RDW 14.0 (11.5-15.5) % Plt Count 224 (150-450) k/uL Neutrophils % 91 % Lymphocytes % 4 % Monocytes % 3 % Eosinophils % 1 % Basophils % 0 % Neutrophils # 6.4 (1.3-7.7) k/uL Lymphocytes # 0.3 L (1.0-4.8) k/uL Monocytes # 0.2 (0-1.0) k/uL Eosinophils # 0.1 (0-0.7) k/uL Basophils # 0.0 (0-0.2) k/uL Sodium 141 (137-145) mmol/L Potassium 4.1 (3.5-5.1) mmol/L Chloride 103 (98-107) mmol/L Carbon Dioxide 25 (22-30) mmol/L Anion Gap 13 mmol/L BUN 16 (7-17) mg/dL Creatinine 0.65 (0.52-1.04) mg/dL Est GFR (CKD-EPI)AfAm >90 (>60 ml/min/1.73 sqM) Est GFR (CKD-EPI)NonAf >90 (>60 ml/min/1.73 sqM) Glucose 95 (74-99) mg/dL POC Glucose (mg/dL) 94 (75-99) mg/dL POC Glu Wireless Technician ID Divina Durbin Calcium 9.3 (8.4-10.2) mg/dL Total Bilirubin 0.6 (0.2-1.3) mg/dL AST 20 (14-36) U/L ALT 29 (9-52) U/L Alkaline Phosphatase 69 (38-126) U/L Total Protein 7.3 (6.3-8.2) g/dL Albumin 4.6 (3.5-5.0) g/dL Amylase 47 (30-110) U/L Lipase 67 (23-300) U/L Urine Color Urine Appearance (Clear) Urine pH (5.0-8.0) Ur Specific [place] (1.001-1.035) Urine Protein (Negative) Urine Glucose (UA) (Negative) Urine Ketones (Negative) Urine Blood (Negative) Urine Nitrite (Negative) Urine Bilirubin (Negative) Urine Urobilinogen (<2.0) mg/dL Ur Leukocyte Esterase (Negative) Urine HCG, Qual (Not Detectd) 07/12/17 07/12/17 Range/Units 14:30 14:30 WBC (3.8-10.6) k/uL RBC (3.80-5.40) m/uL Hgb (11.4-16.0) gm/dL Hct (34.0-46.0) % MCV (80.0-100.0) fL MCH (25.0-35.0) pg MCHC (31.0-37.0) g/dL RDW (11.5-15.5) % Plt Count (150-450) k/uL Neutrophils % % Lymphocytes % % Monocytes % % Eosinophils % % Basophils % % Neutrophils # (1.3-7.7) k/uL Lymphocytes # (1.0-4.8) k/uL Monocytes # (0-1.0) k/uL Eosinophils # (0-0.7) k/uL Basophils # (0-0.2) k/uL Sodium (137-145) mmol/L Potassium (3.5-5.1) mmol/L Chloride (98-107) mmol/L Carbon Dioxide (22-30) mmol/L Anion Gap mmol/L BUN (7-17) mg/dL Creatinine (0.52-1.04) mg/dL Est GFR (CKD-EPI)AfAm (>60 ml/min/1.73 sqM) Est GFR (CKD-EPI)NonAf (>60 ml/min/1.73 sqM) Glucose (74-99) mg/dL POC Glucose (mg/dL) (75-99) mg/dL POC Glu Wireless Technician ID Calcium (8.4-10.2) mg/dL Total Bilirubin (0.2-1.3) mg/dL AST (14-36) U/L ALT (9-52) U/L Alkaline Phosphatase (38-126) U/L Total Protein (6.3-8.2) g/dL Albumin (3.5-5.0) g/dL Amylase (30-110) U/L Lipase (23-300) U/L Urine Color Yellow Urine Appearance Clear (Clear) Urine pH 5.5 (5.0-8.0) Ur Specific [place] 1.026 (1.001-1.035) Urine Protein Trace H (Negative) Urine Glucose (UA) Negative (Negative) Urine Ketones Negative (Negative) Urine Blood Negative (Negative) Urine Nitrite Negative (Negative) Urine Bilirubin Negative (Negative) Urine Urobilinogen <2.0 (<2.0) mg/dL Ur Leukocyte Esterase Negative (Negative) Urine HCG, Qual Not Detected (Not Detectd) Disposition Clinical Impression: Enteritis, Abdominal pain Disposition: HOME SELF-CARE Condition: Stable Instructions: Abdominal Pain (ED) Additional Instructions: Please return to the Emergency Department if symptoms worsen or any other concerns. Prescriptions: Acetaminophen-Codeine 300-30mg [Tylenol #3] 1 tab PO Q4H PRN #20 tablet PRN Reason: pain Dicyclomine [Bentyl] 20 mg PO TID #30 tablet Ondansetron Odt [Zofran Odt] 4 mg PO Q8HR PRN #10 tab PRN Reason: Nausea Referrals: Nixon Jha MD [Primary Care Provider] - 1-2 days Time of Disposition: 16:10
[2017-07-12] MEDS ORDERED: KETOROLAC 30 MG/ML 1 ML VIAL IVP STA (14:41)
[2017-07-12 14:51] LABS: Appearance,Urine Clear (Clear); Bilirubin,Urine Negative (Negative); Blood,Urine Negative (Negative); Color,Urine Yellow; Glucose,Urine (UA) Negative (Negative); Ketones,Urine Negative (Negative); Leukocyte Esterase,Urine Negative (Negative); Nitrite,Urine Negative (Negative); PH, Urine 5.5 (5.0-8.0); Protein,Urine Trace (Negative); Specific Gravity,Urine 1.026 (1.001-1.035); Urobilinogen,Urine <2.0 mg/dL (<2.0)
[2017-07-12 14:58] LABS: Basophils % (A) 0 %; Eosinophils # (A) 0.1 k/uL (0-0.7); Eosinophils % (A) 1 %; Lymphocytes # (A) 0.3 k/uL (1.0-4.8); Lymphocytes % (A) 4 %; MCH 28.5 pg (25.0-35.0); MCHC 33.3 g/dL (31.0-37.0); MCV 85.8 fL (80.0-100.0); Monocytes # (A) 0.2 k/uL (0-1.0); Monocytes % (A) 3 %; Neutrophils # (A) 6.4 k/uL (1.3-7.7); Neutrophils % (A) 91 %; Platelet Count 224 k/uL (150-450); RBC 5.24 m/uL (3.80-5.40)
[2017-07-12 15:03] LABS: ALT 29 U/L (9-52); AST 20 U/L (14-36); Albumin 4.6 g/dL (3.5-5.0); Alkaline Phosphatase 69 U/L (38-126); Amylase 47 U/L (30-110); Anion Gap 13 mmol/L; Blood Urea Nitrogen 16 mg/dL (7-17); Calcium 9.3 mg/dL (8.4-10.2); Carbon Dioxide 25 mmol/L (22-30); Chloride 103 mmol/L (98-107); Glucose 95 mg/dL (74-99); Lipase 67 U/L (23-300); Potassium 4.1 mmol/L (3.5-5.1); Sodium 141 mmol/L (137-145); Total Bilirubin 0.6 mg/dL (0.2-1.3); Total Protein 7.3 g/dL (6.3-8.2)
--- NOTE | 2017-07-12 15:27 | CT ---
EXAMINATION TYPE: CT abdomen pelvis w con DATE OF EXAM: 07/12/2017 COMPARISON: NONE HISTORY: RLQ pain with nausea and vomiting CT DLP: 1774.9 mGycm CONTRAST: CT scan of the abdomen and pelvis is performed without Oral Contrast and with IV Contrast, patient in jected with 100 mL of Omnipaque 300. FINDINGS: LUNG BASES-: No visible nodule. No infiltrate. LIVER/GB: Cholecystectomy clips. Mild hepatic steatosis. No space occupying hepatic lesion. Biliar y tree is of normal caliber. PANCREAS: No inflammation. No distinct mass. SPLEEN: No splenic enlargement. No lesion seen. ADRENALS: No nodule. No thickening. KIDNEYS/BLADDER: No hydronephrosis. No nephrolithiasis. No distinct renal mass. Urinary bladder g rossly unremarkable. BOWEL: Normal appendix. There is mild small bowel wall thickening with a few scattered air-fluid leve ls. Correlate for enteritis. The colon is of normal caliber. No evidence for abscess or free air. GENITAL ORGANS: No gross abnormality. LYMPH NODES: No greater than 1cm abdominal or pelvic lymph nodes are appreciated. AORTA: No significant abnormality. OSSEOUS STRUCTURES: No significant abnormality is seen. OTHER: No significant additional abnormality is seen. IMPRESSION: 1. There is mild small bowel wall thickening with a few scattered air-fluid levels. Correlate for ent eritis. 2. Mild fatty hepatic infiltration.
[2017-07-12 16:49] VITALS: BP 97/46; PULSE 78; TEMP 99.1
== END 2017-07-12 16:49 | disposition home or self-care (01) ==
LOC: EC 10:56
DX: K52.9 Noninfective gastroenteritis and colitis, unspecified (principal); Z90.49 Acquired absence of other specified parts of digestive tract; Z88.0 Allergy status to penicillin; Z88.2 Allergy status to sulfonamides; Z91.013 Allergy to seafood
CPT/HCPCS: 36415; 80053; 82150; 83690; 85025; 81003; 81025; 74177; 99284; 96374; 96375; 96361 ×2; J2405; J1885; Q9967

== ENCOUNTER → 2018-01-05 | Outpatient (CLI) | payer MEDICAID ==
[2018-01-05 16:46] LABS: HCT 40.8 % (34.0-46.0); HGB 13.4 gm/dL (11.4-16.0); MCH 29.2 pg (25.0-35.0); MCHC 32.7 g/dL (31.0-37.0); MCV 89.3 fL (80.0-100.0); Mean Platelet Volume 6.8; Platelet Count 253 k/uL (150-450); RBC 4.57 m/uL (3.80-5.40); RDW 14.1 % (11.5-15.5); WBC 7.9 k/uL (3.8-10.6)
[2018-01-05 17:13] LABS: T4, Free (Free Thyroxine) 0.87 ng/dL (0.78-2.19)
== END | disposition home or self-care (01) ==
LOC: LABWHC1 16:21
PROVIDERS: ATTEND Obstetrics & Gynecology
DX: N92.0 Excessive and frequent menstruation with regular cycle (principal)
CPT/HCPCS: 36415; 84439; 84443; 85027

== ENCOUNTER 2018-01-07 01:43 | Emergency (ER) | payer MEDICAID ==
[2018-01-07] MEDS ORDERED: SODIUM CHLORIDE 0.9% 1,000 ML IV ONE (02:19)
[2018-01-07 02:44] LABS: Basophils % (A) 0 %; Eosinophils # (A) 0.1 k/uL (0-0.7); Eosinophils % (A) 1 %; HCT 39.1 % (34.0-46.0); HGB 12.8 gm/dL (11.4-16.0); Lymphocytes # (A) 1.7 k/uL (1.0-4.8); Lymphocytes % (A) 16 %; MCH 29.5 pg (25.0-35.0); MCHC 32.7 g/dL (31.0-37.0); MCV 90.3 fL (80.0-100.0); Mean Platelet Volume 6.7; Monocytes # (A) 0.4 k/uL (0-1.0); Monocytes % (A) 4 %; Neutrophils # (A) 8.8 k/uL (1.3-7.7); Neutrophils % (A) 79 %; Platelet Count 264 k/uL (150-450); RBC 4.33 m/uL (3.80-5.40); RDW 14.4 % (11.5-15.5); WBC 11.1 k/uL (3.8-10.6)
--- NOTE | 2018-01-07 02:52 | ED ---
Female Urogenital HPI - General Chief complaint: Vaginal Bleeding Stated complaint: Female Time Seen by Provider: 01/07/18 02:05 Source: patient, RN notes reviewed Mode of arrival: wheelchair Limitations: no limitations - History of Present Illness Initial comments: This is a 27-year-old female who presents to the emergency department with chief complaint of vaginal bleeding. Patient does report a history of tubal ligation. Patient states that she did not have any menstrual periods for 5-1/2 months. She states that she was evaluated by Dr. Cruz, her SOLDERER ASSEMBLY REPAIR and was started on a hormone replacement pill. Patient states she is unsure of the name of this medication. She states that she was on this last month and had a bad reaction so was discontinued from the medication. Patient states that after taking the medication she began to have vaginal bleeding. She states that she has been bleeding for approximately 3 weeks. She states that she started oral control 12 days ago. She states that a few days ago she started passing clots. She did contact Dr. Cruz and had outpatient laboratory studies performed. Patient states that the bleeding and passage of clots has become progressively worse. She states that tonight while at work she has been going through a tampon and a pad approximately every 2 hours. She states she passed a clot the size of a lemon. The patient is an employed nurse here at the hospital. She bled through her scrubs while at work this evening and has been wearing a diaper that she has been bleeding through as well. Patient states that she has been feeling lightheaded. She denies any fevers or chills, chest pain or shortness of breath, abdominal pain, pelvic pain, nausea or vomiting, diarrhea or constipation, dysuria or hematuria. Last Menstrual Period: 12/26/17 - Related Data Home Medications Medication Instructions Recorded Confirmed Norgestimate-Ethinyl Estradiol 1 tab PO DAILY 01/07/18 01/07/18 [[id number] Tablet] Previous Rx's Medication Instructions Recorded Ondansetron Odt [Zofran Odt] 4 mg PO Q8HR PRN #10 tab 07/12/17 Allergies Allergy/AdvReac Type Severity Reaction Status Date / Time Penicillins Allergy Intermediate Rash/Hives Verified 01/07/18 01:49 Sulfa (Sulfonamide Allergy Swelling Verified 01/07/18 01:49 Antibiotics) shrimp Allergy Anaphylaxis Uncoded 01/07/18 01:49 Review of Systems ROS Statement: Those systems with pertinent positive or pertinent negative responses have been documented in the HPI. ROS Other: All systems not noted in ROS Statement are negative. Past Medical History Past Medical History: Asthma Additional Past Medical History / Comment(s): gestational DIABETES, syncope History of Any Multi-Drug Resistant Organisms: None Reported Past Surgical History: Section, Cholecystectomy, Tubal Ligation Past Anesthesia/Blood Transfusion Reactions: No Reported Reaction Past Psychological History: No Psychological Hx Reported Smoking Status: Never smoker Past Alcohol Use History: None Reported Past Drug Use History: None Reported - Past Family History Mother Family Medical History: No Reported History General Exam - General Exam Comments Initial Comments: General: Awake and alert, well-developed; in no apparent distress. HEENT: Head atraumatic, normocephalic. Pupils are equal, round and reactive to light. Extraocular movements intact. Oropharynx moist without erythema or exudate. Neck: Supple. Normal ROM. Cardiovascular: Regular rate and rhythm. No murmurs, rubs or gallops. Chest symmetrical. Respiratory: Lungs clear to auscultation bilaterally. No wheezes, rales or rhonchi. Normal respiratory effort with no use of accessory muscles. Abdomen: Soft, non-distended. Generalized mild tenderness on palpation of the lower abdomen. No rigidity, rebound or guarding. Normal bowel sounds in all 4 quadrants. Musculoskeletal: Normal ROM, no tenderness bilateral upper and lower extremities. Skin: [place], warm and dry without rashes or lesions. Neurological: Alert and oriented x3. CN II-XII grossly intact. Speech is fluent and answers are appropriate. No focal neuro deficits. Psychiatric: Normal mood and affect. No overt signs of depression or anxiety noted. Limitations: no limitations Course Vital Signs 01/07/18 01:44 Temperature 98.0 F Pulse Rate 84 Respiratory 16 Rate Blood Pressure 127/84 O2 Sat by Pulse 97 Oximetry Medical Decision Making - Medical Decision Making This is a 27-year-old female who presents to the emergency department with chief complaint of vaginal bleeding. Patient has been bleeding for approximately 3 weeks. She states over the last few days bleeding has worsened and she is now passing large clots. Laboratory studies were obtained on January 05. At that time, hemoglobin was 13.4. It is now at 12.8. There is a mildly elevated white count at 11.1. CMP and coags are unremarkable. Case was discussed with attending physician, Dr. Alexandra. Patient was given the option to be started on medroxyprogesterone which is shown to stop vaginal bleeding, however patient was made aware of risk factors including DVT and pulmonary embolisms. Patient refuses this medication. Recommended that she follow up with Dr. Cruz on Tuesday morning for further evaluation. Recommended returning to the emergency department if any worsening of symptoms or any other concerning symptoms arise. Patient's vital signs have been stable and she is in no acute distress. She will be discharged home at this time. She is in agreement with plan and voices understanding. All questions were answered. - Lab Data Result diagrams: 01/07/18 02:00 01/07/18 02:00 Lab Results 01/07/18 01/07/18 01/07/18 Range/Units 02:00 02:00 02:00 WBC 11.1 H (3.8-10.6) k/uL RBC 4.33 (3.80-5.40) m/uL Hgb 12.8 (11.4-16.0) gm/dL Hct 39.1 (34.0-46.0) % MCV 90.3 (80.0-100.0) fL MCH 29.5 (25.0-35.0) pg MCHC 32.7 (31.0-37.0) g/dL RDW 14.4 (11.5-15.5) % Plt Count 264 (150-450) k/uL Neutrophils % 79 % Lymphocytes % 16 % Monocytes % 4 % Eosinophils % 1 % Basophils % 0 % Neutrophils # 8.8 H (1.3-7.7) k/uL Lymphocytes # 1.7 (1.0-4.8) k/uL Monocytes # 0.4 (0-1.0) k/uL Eosinophils # 0.1 (0-0.7) k/uL Basophils # 0.0 (0-0.2) k/uL PT 10.2 (9.0-12.0) sec INR 1.0 (<1.2) APTT 25.3 (22.0-30.0) sec Sodium 140 (137-145) mmol/L Potassium 3.9 (3.5-5.1) mmol/L Chloride 105 (98-107) mmol/L Carbon Dioxide 22 (22-30) mmol/L Anion Gap 13 mmol/L BUN 15 (7-17) mg/dL Creatinine 0.76 (0.52-1.04) mg/dL Est GFR (CKD-EPI)AfAm >90 (>60 ml/min/1.73 sqM) Est GFR (CKD-EPI)NonAf >90 (>60 ml/min/1.73 sqM) Glucose 105 H (74-99) mg/dL Calcium 9.7 (8.4-10.2) mg/dL Total Bilirubin 0.4 (0.2-1.3) mg/dL AST 19 (14-36) U/L ALT 24 (9-52) U/L Alkaline Phosphatase 52 (38-126) U/L Total Protein 7.6 (6.3-8.2) g/dL Albumin 4.6 (3.5-5.0) g/dL Disposition Clinical Impression: Menorrhagia Disposition: HOME SELF-CARE Condition: Good Instructions: Menorrhagia (ED) Additional Instructions: As discussed, please follow-up with Dr. Cruz on Tuesday morning. Please follow up with primary care provider within 1-2 days. Return to emergency department if symptoms should worsen or any concerns arise. Is patient prescribed a controlled substance at d/c from ED?: No Referrals: Nixon Jha MD [Primary Care Provider] - 1-2 days Time of Disposition: 04:32
[2018-01-07 03:03] LABS: Partial Thromboplastin Time 25.3 sec (22.0-30.0); Prothrombin Time 10.2 sec (9.0-12.0)
[2018-01-07] MEDS ORDERED: ONDANSETRON 4 MG/2 ML VIAL IVP STA (03:04)
[2018-01-07 03:12] LABS: ALT 24 U/L (9-52); AST 19 U/L (14-36); Albumin 4.6 g/dL (3.5-5.0); Alkaline Phosphatase 52 U/L (38-126); Anion Gap 13 mmol/L; Blood Urea Nitrogen 15 mg/dL (7-17); Calcium 9.7 mg/dL (8.4-10.2); Carbon Dioxide 22 mmol/L (22-30); Chloride 105 mmol/L (98-107); Glucose 105 mg/dL (74-99); Potassium 3.9 mmol/L (3.5-5.1); Sodium 140 mmol/L (137-145); Total Bilirubin 0.4 mg/dL (0.2-1.3); Total Protein 7.6 g/dL (6.3-8.2)
[2018-01-07 04:50] VITALS: BP 113/59; PULSE 80; RESP 18; TEMP 97.3
== END 2018-01-07 04:50 | disposition home or self-care (01) ==
LOC: EC 01:43
DX: N92.0 Excessive and frequent menstruation with regular cycle (principal); D72.829 Elevated white blood cell count, unspecified; Z98.51 Tubal ligation status; Z79.3 Long term (current) use of hormonal contraceptives; Z88.0 Allergy status to penicillin; Z88.2 Allergy status to sulfonamides; Z91.013 Allergy to seafood; Z53.29 Procedure and treatment not carried out because of patient's decision for other reasons
CPT/HCPCS: 36415; 80053; 85025; 85610; 85730; 96361; 96374; 99284

== ENCOUNTER 2018-01-07 14:47 | Emergency (ER) | payer MEDICAID ==
[2018-01-07 15:03] VITALS: RESP 18
[2018-01-07] MEDS ORDERED: SODIUM CHLORIDE 0.9% 1,000 ML IV ONE (15:21)
--- NOTE | 2018-01-07 15:27 | ED ---
Female Urogenital HPI - General Chief complaint: Vaginal Bleeding Stated complaint: Heavy Period Time Seen by Provider: 01/07/18 15:04 Source: patient Mode of arrival: ambulatory Limitations: no limitations - History of Present Illness Initial comments: The patient is a 27-year-old female presenting for vaginal bleeding. She states that she was seen her within the last 12 hours and a shock to the follow- up. At that time, hemoglobin was stable and vital signs were within normal limits and she was offered medroxyprogesterone but declined it as she had a syncopal episode about a month ago and there is concern about possible TIA. She is a nurse here at the hospital and says that last night her vaginal bleeding prompted her to come in as she was lightheaded and dizzy. She was in discharge and from 7 to 10 AM this morning, she was going through about a pad every 1.5 hours. However, at 11 AM, she started having increased bleeding and was going through a pad every hour. She admits to some mild lower abdominal cramping and she was told by her cnc mill programmer, Dr. Cruz that if the symptoms continue, she may need a D&C. - Related Data Home Medications Medication Instructions Recorded Confirmed Norgestimate-Ethinyl Estradiol 1 tab PO DAILY 01/07/18 01/07/18 [Kuz-Tt-Hguhudoa Tablet] Previous Rx's Medication Instructions Recorded Ondansetron Odt [Zofran Odt] 4 mg PO Q8HR PRN #10 tab 07/12/17 medroxyPROGESTERone [Provera] 10 mg PO DAILY #10 tablet 01/07/18 Allergies Allergy/AdvReac Type Severity Reaction Status Date / Time Penicillins Allergy Intermediate Rash/Hives Verified 01/07/18 15:03 Sulfa (Sulfonamide Allergy Swelling Verified 01/07/18 15:03 Antibiotics) shrimp Allergy Anaphylaxis Uncoded 01/07/18 15:03 Review of Systems ROS Statement: Those systems with pertinent positive or pertinent negative responses have been documented in the HPI. Constitutional: Negative for chills, fatigue and fever. HENT: Negative for congestion. Respiratory: Negative for chest tightness, shortness of breath and wheezing. Negative for cough Cardiovascular: Negative for chest pain and palpitations. Gastrointestinal: Positive for abdominal pain. Negative for abdominal distention , diarrhea, nausea and vomiting. Genitourinary: Negative for dysuria. Musculoskeletal: Negative for back pain, neck pain and neck stiffness. Skin: Negative for color change. Neurological: Negative for dizziness, speech difficulty, weakness and positive for light-headedness. Psychiatric/Behavioral: Negative for agitation and confusion. Negative for anxiety ROS Other: All systems not noted in ROS Statement are negative. Past Medical History Past Medical History: Asthma Additional Past Medical History / Comment(s): gestational DIABETES, syncope History of Any Multi-Drug Resistant Organisms: None Reported Past Surgical History: Section, Cholecystectomy, Tubal Ligation Past Anesthesia/Blood Transfusion Reactions: No Reported Reaction Past Psychological History: No Psychological Hx Reported Smoking Status: Never smoker Past Alcohol Use History: None Reported Past Drug Use History: None Reported - Past Family History Mother Family Medical History: No Reported History General Exam - General Exam Comments Initial Comments: Constitutional: Pt is oriented to person, place, and time. Pt appears well- developed and well-nourished. No distress. HENT: Head: Normocephalic and atraumatic. Eyes: EOM are normal. Neck: Normal range of motion. Neck supple. Cardiovascular: Normal rate, regular rhythm, S1 normal, S2 normal and normal heart sounds. Exam reveals no gallop and no friction rub. No murmur heard. Pulmonary/Chest: Effort normal and breath sounds normal. No tachypnea and no bradypnea. No respiratory distress. No wheezes or rales noted. Abdominal: Soft. Bowel sounds are normal. Pt exhibits no shifting dullness, no distension, no pulsatile liver, no fluid wave, no abdominal bruit and no ascites. There is no tenderness. There is no rigidity, no rebound, no guarding, no tenderness at McBurney's point and negative Dewey's sign. Musculoskeletal: Normal range of motion. : Cervical os is noted to be closed. Dark red blood is noted in the vaginal canal. There is no adnexal tenderness. Neurological: Pt is alert and oriented to person, place, and time. No cranial nerve deficit. Skin: Skin is warm and dry. No rash noted. Pt is not diaphoretic. No erythema. No pallor. Psychiatric: Pt has a normal mood and affect. Pt behavior is normal. Thought content normal. Limitations: no limitations Course Vital Signs 01/07/18 01/07/18 15:02 17:40 Temperature 98.4 F 98.7 F Pulse Rate 85 74 Respiratory 18 18 Rate Blood Pressure 112/67 109/60 O2 Sat by Pulse 98 99 Oximetry Medical Decision Making - Medical Decision Making Laboratory studies showed that hemoglobin was stable to 11.5 and electrolytes were within normal limits. Urinalysis also showed no evidence of acute pathology or infection and urine test was negative. Transvaginal ultrasound was performed and showed no evidence of masses and pelvic exam showed that there was no significant bleeding. Vital signs remained stable in the emergency department and case is discussed with on-call gynecology. Is advised that the patient should be placed on Provera in that because the patient 's vitals and hemoglobin remained stable, she could be managed as an outpatient. This is explained to the patient and she expressed understanding. Additionally, she stated that she was on Provera but unsure of the dose but she thinks it was 10 mg and therefore that was prescribed to her. She was advised to reduce it appropriately if she found that her home dosage was less. Patient was advised of the laboratory findings and recommendations and also advised to follow-up with Dr. Cruz on Tuesday which she agreed to. - Lab Data Result diagrams: 01/07/18 15:33 01/07/18 15:22 Lab Results 01/07/18 01/07/18 01/07/18 Range/Units 15:22 15:22 15:22 WBC (3.8-10.6) k/uL RBC (3.80-5.40) m/uL Hgb (11.4-16.0) gm/dL Hct (34.0-46.0) % MCV (80.0-100.0) fL MCH (25.0-35.0) pg MCHC (31.0-37.0) g/dL RDW (11.5-15.5) % Plt Count (150-450) k/uL Neutrophils % % Lymphocytes % % Monocytes % % Eosinophils % % Basophils % % Neutrophils # (1.3-7.7) k/uL Lymphocytes # (1.0-4.8) k/uL Monocytes # (0-1.0) k/uL Eosinophils # (0-0.7) k/uL Basophils # (0-0.2) k/uL Sodium 143 (137-145) mmol/L Potassium 4.3 (3.5-5.1) mmol/L Chloride 107 (98-107) mmol/L Carbon Dioxide 26 (22-30) mmol/L Anion Gap 10 mmol/L BUN 13 (7-17) mg/dL Creatinine 0.69 (0.52-1.04) mg/dL Est GFR (CKD-EPI)AfAm >90 (>60 ml/min/1.73 sqM) Est GFR (CKD-EPI)NonAf >90 (>60 ml/min/1.73 sqM) Glucose 93 (74-99) mg/dL Calcium 9.2 (8.4-10.2) mg/dL Total Bilirubin 0.3 (0.2-1.3) mg/dL AST 14 (14-36) U/L ALT 24 (9-52) U/L Alkaline Phosphatase 46 (38-126) U/L Total Protein 6.9 (6.3-8.2) g/dL Albumin 4.3 (3.5-5.0) g/dL Urine Color Urine Appearance (Clear) Urine pH (5.0-8.0) Ur Specific [place] (1.001-1.035) Urine Protein (Negative) Urine Glucose (UA) (Negative) Urine Ketones (Negative) Urine Blood (Negative) Urine Nitrite (Negative) Urine Bilirubin (Negative) Urine Urobilinogen (<2.0) mg/dL Ur Leukocyte Esterase (Negative) Urine RBC (0-5) /hpf Urine WBC (0-5) /hpf Ur Squamous Epith Cells (0-4) /hpf Urine HCG, Qual Not Detected (Not Detectd) Blood Type O Positive Blood Type Recheck No Antibody Screen NEGATIVE Spec Expiration Date 01/10/2018232101/07/18 01/07/18 Range/Units 15:22 15:33 WBC 5.9 (3.8-10.6) k/uL RBC 3.85 (3.80-5.40) m/uL Hgb 11.5 (11.4-16.0) gm/dL Hct 34.4 (34.0-46.0) % MCV 89.4 (80.0-100.0) fL MCH 29.8 (25.0-35.0) pg MCHC 33.4 (31.0-37.0) g/dL RDW 14.3 (11.5-15.5) % Plt Count 244 (150-450) k/uL Neutrophils % 72 % Lymphocytes % 19 % Monocytes % 5 % Eosinophils % 2 % Basophils % 0 % Neutrophils # 4.3 (1.3-7.7) k/uL Lymphocytes # 1.1 (1.0-4.8) k/uL Monocytes # 0.3 (0-1.0) k/uL Eosinophils # 0.1 (0-0.7) k/uL Basophils # 0.0 (0-0.2) k/uL Sodium (137-145) mmol/L Potassium (3.5-5.1) mmol/L Chloride (98-107) mmol/L Carbon Dioxide (22-30) mmol/L Anion Gap mmol/L BUN (7-17) mg/dL Creatinine (0.52-1.04) mg/dL Est GFR (CKD-EPI)AfAm (>60 ml/min/1.73 sqM) Est GFR (CKD-EPI)NonAf (>60 ml/min/1.73 sqM) Glucose (74-99) mg/dL Calcium (8.4-10.2) mg/dL Total Bilirubin (0.2-1.3) mg/dL AST (14-36) U/L ALT (9-52) U/L Alkaline Phosphatase (38-126) U/L Total Protein (6.3-8.2) g/dL Albumin (3.5-5.0) g/dL Urine Color Red Urine Appearance Turbid H (Clear) Urine pH 7.0 (5.0-8.0) Ur Specific [place] 1.018 (1.001-1.035) Urine Protein 2+ H (Negative) Urine Glucose (UA) Negative (Negative) Urine Ketones Negative (Negative) Urine Blood Large H (Negative) Urine Nitrite Negative (Negative) Urine Bilirubin Negative (Negative) Urine Urobilinogen <2.0 (<2.0) mg/dL Ur Leukocyte Esterase Small H (Negative) Urine RBC >182 H (0-5) /hpf Urine WBC 17 H (0-5) /hpf Ur Squamous Epith Cells 3 (0-4) /hpf Urine HCG, Qual (Not Detectd) Blood Type Blood Type Recheck Antibody Screen Spec Expiration Date Disposition Clinical Impression: Menorrhagia Disposition: HOME SELF-CARE Condition: Good Instructions: Menstruation (ED) Prescriptions: medroxyPROGESTERone [Provera] 10 mg PO DAILY #10 tablet Is patient prescribed a controlled substance at d/c from ED?: No Referrals: Nixon Jha MD [Primary Care Provider] - 1-2 days Yvonne Cruz DO [Doctor of Osteopathic Medicine] - 1-2 days Time of Disposition: 18:01
[2018-01-07 15:42] LABS: Appearance,Urine Turbid (Clear); Bilirubin,Urine Negative (Negative); Blood,Urine Large (Negative); Color,Urine Red; Glucose,Urine (UA) Negative (Negative); Ketones,Urine Negative (Negative); Leukocyte Esterase,Urine Small (Negative); Nitrite,Urine Negative (Negative); Protein,Urine 2+ (Negative); RBC,Urine >182 /hpf (0-5); Specific Gravity,Urine 1.018 (1.001-1.035); Squamous Epithelial Cell,Urine 3 /hpf (0-4); Urobilinogen,Urine <2.0 mg/dL (<2.0); WBC,Urine 17 /hpf (0-5)
[2018-01-07 15:44] LABS: ALT 24 U/L (9-52); AST 14 U/L (14-36); Albumin 4.3 g/dL (3.5-5.0); Alkaline Phosphatase 46 U/L (38-126); Anion Gap 10 mmol/L; Blood Urea Nitrogen 13 mg/dL (7-17); Calcium 9.2 mg/dL (8.4-10.2); Carbon Dioxide 26 mmol/L (22-30); Chloride 107 mmol/L (98-107); Glucose 93 mg/dL (74-99); Potassium 4.3 mmol/L (3.5-5.1); Sodium 143 mmol/L (137-145); Total Bilirubin 0.3 mg/dL (0.2-1.3); Total Protein 6.9 g/dL (6.3-8.2)
[2018-01-07 16:32] LABS: Basophils % (A) 0 %; Eosinophils # (A) 0.1 k/uL (0-0.7); Eosinophils % (A) 2 %; HCT 34.4 % (34.0-46.0); HGB 11.5 gm/dL (11.4-16.0); Lymphocytes # (A) 1.1 k/uL (1.0-4.8); Lymphocytes % (A) 19 %; MCH 29.8 pg (25.0-35.0); MCHC 33.4 g/dL (31.0-37.0); MCV 89.4 fL (80.0-100.0); Monocytes # (A) 0.3 k/uL (0-1.0); Monocytes % (A) 5 %; Neutrophils # (A) 4.3 k/uL (1.3-7.7); Neutrophils % (A) 72 %; Platelet Count 244 k/uL (150-450); RBC 3.85 m/uL (3.80-5.40); RDW 14.3 % (11.5-15.5); WBC 5.9 k/uL (3.8-10.6)
--- NOTE | 2018-01-07 16:42 | US ---
EXAMINATION TYPE: US transvaginal DATE OF EXAM: 01/07/2018 COMPARISON: 08/27/2015 pelvic ultrasound CLINICAL HISTORY: pain. hemorrhaging TECHNIQUE: Transvaginal (TV). Date of LMP: 12/17/2017, and still on very heavy EXAM MEASUREMENTS: Uterus: 9.7 x 4.8 x 5.7 cm Endometrial Stripe: 1.5 cm Right Ovary: 3.1 x 1.3 x 3.3 cm Left Ovary: 2.5 x 1.7 x 2.9 cm History of 3 c sections and tubal ligation. 1. Uterus: Anteverted 2. Endometrium: thickened 3. Right Ovary: wnl, difficult to doppler due to posterior position, under uterus. 4. Left Ovary: wnl Spectral, color and waveform doppler imaging shows good arterial and venous flow within the ovaries ; there is no evidence for ovarian torsion. 5. Bilateral Adnexa: wnl 6. Posterior cul-de-sac: no free fluid limited doppler of right ovary due to posterior position, under uterus. IMPRESSION: 1. No acute pelvic abnormality by ultrasound.
[2018-01-07 17:41] VITALS: BP 109/60; PULSE 74; TEMP 98.7
== END 2018-01-07 18:36 | disposition home or self-care (01) ==
LOC: EC 14:47
DX: N92.0 Excessive and frequent menstruation with regular cycle (principal); Z79.3 Long term (current) use of hormonal contraceptives; Z88.0 Allergy status to penicillin; Z88.2 Allergy status to sulfonamides; Z91.013 Allergy to seafood; Z98.51 Tubal ligation status
CPT/HCPCS: 36415; 86900; 86901; 80053; 85025; 85610; 85730; 86850; 81001; 81025; 93975; 76830; 99284; 96360; J2405

== ENCOUNTER 2018-01-13 06:17 | Day surgery (SDC) | payer MEDICAID ==
[2018-01-11 13:57] VITALS: BMI 38.0
--- NOTE | 2018-01-12 19:38 | P.HPOB ---
History of Present Illness H&P Date: 01/12/18 Chief Complaint: Menorrhagia with irregular cycle This is a 27-year-old female 3 para 3 who presents for dilation and curettage with hysteroscopy and NovaSure endometrial ablation secondary to menorrhagia with irregular cycle. She went for approximately 5 months without a period and then started on Provera for 5 days in order to start a period. Once she had bled for 5 days, she started on control pills. Her bleeding never stopped even after starting on control pills. She stopped taking the control pills and the third row of her pack and then began bleeding very heavily last Tuesday. Her bleeding was so heavy that she ended up in the emergency room and was having to wear an adult diaper along with a pad and super plus tampon and was still bleeding through. She did start on Provera this past Tuesday. It has slowed her bleeding to where she is only going through a pad every 4-5 hours. She would like definitive surgical treatment to diagnose and control her bleeding issues. She has consented to a dilation and curettage with hysteroscopy and NovaSure endometrial ablation. Pelvic ultrasound showed uterus measuring 9.7 x 4.8 x 5.7 cm with endometrial stripe thickness of 1.5 cm. Both ovaries appeared normal. Obstetrical history: . History of 3 deliveries. Gynecologic history: No history of sexual transmitted diseases. She has had a tubal ligation. Social history: She is . She works as an RN. Review of Systems Constitutional: Denies chills, Denies fever Eyes: denies blurred vision, denies pain Ears, nose, mouth and throat: Denies headache, Denies sore throat Cardiovascular: Denies chest pain, Denies shortness of breath Respiratory: Denies cough Gastrointestinal: Denies abdominal pain, Denies diarrhea, Denies nausea, Denies vomiting Genitourinary: Reports menorrhagia, Reports pelvic pain Menstruation: Reports period heavy Musculoskeletal: Denies myalgias Neurological: Reports syncope Psychiatric: Reports anxiety Past Medical History Past Medical History: Asthma Additional Past Medical History / Comment(s): hx gestational DIABETES, migraines , varicose veins, asthma with sinus infections, History of Any Multi-Drug Resistant Organisms: None Reported Past Surgical History: Section, Cholecystectomy, Tubal Ligation Past Anesthesia/Blood Transfusion Reactions: Previous Problems w/ Anesthesia, Motion Sickness Additional Past Anesthesia/Blood Transfusion Reaction / Comment(s): "hard to wake up" Past Psychological History: Anxiety Smoking Status: Never smoker Past Alcohol Use History: None Reported Past Drug Use History: None Reported - Past Family History Mother Family Medical History: No Reported History Medications and Allergies Home Medications Medication Instructions Recorded Confirmed Type Acetaminophen [Tylenol Extra 500 mg PO BID PRN 01/11/18 01/11/18 History Strength] Multivitamins, Thera [Multivitamin 1 tab PO DAILY 01/11/18 01/11/18 History (formulary)] medroxyPROGESTERone [Provera] 10 mg PO 1000 01/11/18 01/11/18 History Allergies Allergy/AdvReac Type Severity Reaction Status Date / Time Penicillins Allergy Intermediate Rash/Hives Verified 01/11/18 13:49 Sulfa (Sulfonamide Allergy Swelling Verified 01/11/18 13:49 Antibiotics) shrimp Allergy Anaphylaxis Uncoded 01/11/18 13:49 Exam Osteopathic Statement: *. No significant issues noted on an osteopathic structural exam other than those noted in the History and Physical/Consult. HEENT: Within normal limits Heart: Regular rate and rhythm Lungs: Clear to auscultation bilaterally Abdomen: Soft, nontender Pelvic exam: Uterus is mildly tender, anteverted, with no adnexal masses or tenderness noted. Bloody discharge is noted. Extremities: Negative Homans Assessment and Plan (1) Menorrhagia with irregular cycle Status: Acute Code(s): N92.1 - EXCESSIVE AND FREQUENT MENSTRUATION WITH IRREGULAR CYCLE SNOMED Code(s): 657846380 Plan: Proceed with dilation and curettage with hysteroscopy and NovaSure endometrial ablation. I have discussed the risks, benefits, and alternative therapies for the above- mentioned procedure and for both sedation/anesthesia as well as necessary blood products administration, if indicated, as they pertain to this patient. The patient has indicated her understanding and acceptance of the risks and procedures discussed.
[~2018-01-13 06:17] MED LIST: DEXAMETHASONE SOD PHOSPHATE 10 MG/ML 1 ML VIAL IV ONE; LACTATED RINGERS 1,000 ML IV SCH; LIDOCAINE 1% 20 ML VIAL (10MG/ML) FOR IV START INTRADERMA PRN; MIDAZOLAM 2 MG/2 ML VIAL IV PRN; Pre Op ABX Message 1 EACH MISC MISCELLANE ONE; SCOPOLAMINE 1.5MG/72HR PATCH TRANSDERM ONE
[2018-01-13] MEDS: ONDANSETRON 4 MG/2 ML VIAL IVP ONE ×2 (06:55→08:30)
[2018-01-13] MEDS ORDERED: fentaNYL (PF) 50 MCG/ML 2 ML AMP ONE (07:41)
[2018-01-13] MEDS ORDERED: KETOROLAC 30 MG/ML 1 ML VIAL ONE (07:41)
[2018-01-13] MEDS ORDERED: MIDAZOLAM 2 MG/2 ML VIAL ONE (07:41)
[2018-01-13] MEDS ORDERED: PROPOFOL 10 MG/ML 20 ML VIAL IV ONE (07:41)
[2018-01-13] MEDS ORDERED: LIDOCAINE 1% INJ 10MG/ML (20 ML MDV) ONE (07:41)
--- NOTE | 2018-01-13 08:05 | P.OP ---
Date of Procedure: 01/13/18 Preoperative Diagnosis: Menorrhagia with irregular cycle Postoperative Diagnosis: Same Procedure(s) Performed: Dilation and curettage with hysteroscopy and NovaSure endometrial ablation Anesthesia: other (LMA general) Surgeon: Yvonne Cruz Estimated Blood Loss (ml): 3 Pathology: other (Endometrial curettings) Condition: stable Disposition: same day Indications for Procedure: This is a 27-year-old female 3 para 3 who presents for dilation and curettage with hysteroscopy and NovaSure endometrial ablation secondary to menorrhagia with irregular cycle. She went for approximately 5 months without a period and then started on Provera for 5 days in order to start a period. Once she had bled for 5 days, she started on control pills. Her bleeding never stopped even after starting on control pills. She stopped taking the control pills and the third row of her pack and then began bleeding very heavily last Tuesday. Her bleeding was so heavy that she ended up in the emergency room and was having to wear an adult diaper along with a pad and super plus tampon and was still bleeding through. She did start on Provera this past Tuesday. It has slowed her bleeding to where she is only going through a pad every 4-5 hours. She would like definitive surgical treatment to diagnose and control her bleeding issues. She has consented to a dilation and curettage with hysteroscopy and NovaSure endometrial ablation. Pelvic ultrasound showed uterus measuring 9.7 x 4.8 x 5.7 cm with endometrial stripe thickness of 1.5 cm. Both ovaries appeared normal. Operative Findings: Uterus is anteverted, sounded to 9.5 cm. Cervix is sounded to 3 cm. No adnexal masses are palpated. Upon hysteroscopy, a dyssynchronous endometrial pattern was noted. Both tubal ostia were visualized. A minimal to moderate amount of endometrial curettings are obtained. Description of Procedure: The patient is taken to the operating room. She is placed in the dorsal lithotomy position after general anesthesia was given. She is prepped and draped in the normal sterile fashion. Bladder is drained with a catheter and then removed. Pelvic exam is performed under anesthesia. Uterus is found to be anteverted with no adnexal masses. She is placed in slight Trendelenburg position. A right angle retractor is used to visualize the cervix. The anterior lip of the cervix is grasped with a single-tooth tenaculum. Cervix is sounded to 3 cm. Uterus is sounded to 6.5 cm. Cervix is gently dilated with Main dilators until a hysteroscope could be passed. Hysteroscopy is performed using normal saline. The above noted findings are noted. Next a polyp forceps is introduced. A moderate amount of tissue was obtained. Next medium-sized size sharp curette was placed. A minimal to moderate amount of endometrial curettings were obtained. Next NovaSure array was inserted into the endometrial cavity. Length was set at 6.5 cm and width was determined to be 3.8 cm. Next cavity assessment was completed and passed on the first try. Next NovaSure array was fired at 136 W for 67 seconds. Next the array was removed, inspected and then discarded. Next the hysteroscope was reinserted. Uniform charring was noted. Pictures were taken. Hysteroscope was removed. Single-tooth tenaculum was removed from the anterior lip of the cervix. Minimal bleeding was noted. All other instruments removed from the vagina. Sponge counts were correct. Patient is taken to recovery room in stable condition.
[2018-01-13 08:19] VITALS: TEMP 97.1
[2018-01-13] MEDS: HYDROmorphone 0.5 MG/0.5 ML SYRINGE IVP PRN ×2 (08:30→08:56)
[2018-01-13 10:48] VITALS: RESP 18
[2018-01-13 10:49] VITALS: BP 127/79; PULSE 76
== END 2018-01-13 11:10 | disposition home or self-care (01) ==
LOC: OR 06:17
PROVIDERS: ATTEND Obstetrics & Gynecology
DX: N92.1 Excessive and frequent menstruation with irregular cycle (principal); J45.909 Unspecified asthma, uncomplicated; G43.909 Migraine, unspecified, not intractable, without status migrainosus; I83.90 Asymptomatic varicose veins of unspecified lower extremity; F41.9 Anxiety disorder, unspecified; Z79.3 Long term (current) use of hormonal contraceptives; Z88.0 Allergy status to penicillin; Z88.2 Allergy status to sulfonamides; Z91.013 Allergy to seafood; Z98.51 Tubal ligation status; Z90.49 Acquired absence of other specified parts of digestive tract
CPT/HCPCS: 81025; 88305; 58563; J2250; J1100; J2405; J2001; J3010; J1885; J2704; J1170

== ENCOUNTER → 2018-02-08 | Outpatient (CLI) | payer MEDICAID ==
[2018-02-08 15:40] LABS: C Reactive Protein 7.6 mg/L (<10.0); Calcium 9.5 mg/dL (8.4-10.2)
--- NOTE | 2018-02-08 16:09 | MR ---
EXAMINATION TYPE: MR angio head wo/neck wo/w con DATE OF EXAM: 02/08/2018 COMPARISON: MR brain same date HISTORY: Syncope, migraines, numbness rt, arm, collapsed, dizziness, memory loss, TECHNIQUE: Time of flight images focusing on the [place] and neck were performed without con trast.. 2-D and 3-D postprocessing imaging is performed. FINDINGS: MRA head: Anterior and posterior circulation are patent. There is no filling defect to sugg est embolus, there is no dissection. No evident aneurysm or vascular malformation. IMPRESSION: Normal [place] MRA MRA NECK: Common carotid, internal and external carotid, vertebrobasilar system, transverse aorta, le ft and right subclavian arteries are patent proximally. No evidence stenosis of the proximal internal carotid arteries. IMPRESSION: Normal neck MRA.
--- NOTE | 2018-02-08 16:58 | MR ---
EXAMINATION TYPE: MR brain/cspine wo/w DATE OF EXAM: 02/08/2018 COMPARISON: None HISTORY: Syncope, migraines, numbness rt, arm, collasped,dizziness, memory loss, TECHNIQUE: Multiplanar, multisequence images of the brain and brainstem, cervical spine is performed without and with IV contrast, utilizing 10 mL intravenous Gadavist . FINDINGS: Diffusion weighted images demonstrate no evidence of a recent infarct or other diffusion ab normality. Scattered hyperintensities are present in the periventricular white matter on inversion re covery and T2-weighted sequences, 3-5 lesions are suspected, axial image 20 There is no extra-axial f luid collection. The ventricular system and cisternal spaces are normal in size and appearance. The brain volume is age appropriate. Midline structures demonstrate normal morphology. The craniocervical junction appears within normal limits. Post contrast images demonstrate no abnormal enhancement. The dural venous sinuses appear pa tent. The visualized sinuses are clear and the globes are intact. IMPRESSION: Nonspecific white matter demyelination of questionable clinical significance. Cervical spine MRI: Cervical vertebral bodies show preserved height, alignment, and bone marrow signa l. C4-5 shows some loss of disc height and signal. Posterior extension of endplate disc complex causes m ild anterior mass effect on the thecal sac. No significant central stenosis or foraminal encroachment . C5-6: Small posterior broad-based disc bulge causes mild anterior mass effect on the thecal sac. No s ignificant central stenosis or foraminal encroachment. C6-7 shows some mild spondylosis, posterior extension of endplate disc complex causes mild anterior m ass effect on the thecal sac, uncovertebral joint hypertrophy encroaches somewhat towards the left ne ural foramen. There is loss of disc height and signal. Remaining cervical disc spaces are unremarkable. No abnormal enhancement following contrast administr ation. IMPRESSION: Degenerative disc disease.
[2018-02-08 18:18] LABS: Rheumatoid Factor 8 IU/mL (0-15)
[2018-02-08 19:07] LABS: Vitamin D 25 Hydroxy 10.4 ng/mL (30.0-100.0)
[2018-02-08 21:50] LABS: DNA Double-Stranded NEGATIVE (NEGATIVE)
== END | disposition home or self-care (01) ==
LOC: RADMRIMAIN 12:10
PROVIDERS: ATTEND Psychiatry & Neurology Neurology
DX: M50.30 Other cervical disc degeneration, unspecified cervical region (principal); G44.209 Tension-type headache, unspecified, not intractable; R53.83 Other fatigue
CPT/HCPCS: 85652; 82310; 86140; 86431; 82306; 86225; 70544; 70549; 70553; 72156; A9581

== ENCOUNTER → 2018-03-08 | Day surgery (SDC) | payer MEDICAID ==
[2018-03-03 13:22] VITALS: BMI 38.4
[~2018-03-08] MED LIST changes: -DEXAMETHASONE SOD PHOSPHATE 10 MG/ML 1 ML VIAL IV ONE; -LACTATED RINGERS 1,000 ML IV SCH; -LIDOCAINE 1% 20 ML VIAL (10MG/ML) FOR IV START INTRADERMA PRN; -MIDAZOLAM 2 MG/2 ML VIAL IV PRN; -Pre Op ABX Message 1 EACH MISC MISCELLANE ONE; -SCOPOLAMINE 1.5MG/72HR PATCH TRANSDERM ONE; +SODIUM CHLORIDE 0.9% 500 ML 500 ML IV ONE; +SODIUM CHLORIDE 0.9% 500 ML 500 ML IV SCH
[2018-03-08 07:57] VITALS: TEMP 98.1
[2018-03-08 08:58] LABS: T4, Free (Free Thyroxine) 0.88 ng/dL (0.78-2.19)
--- NOTE | 2018-03-08 09:03 | P.PCN ---
Date of Procedure: 03/08/18 Surgeon: Wei Kan Pathology: none sent Condition: stable Disposition: PACU Description of Procedure: Procedure=1-lumbar puncture . Preoperative diagnoses= multiple sclerosis. Postoperative diagnosis= multiple sclerosis. Anesthesia= lidocaine 1% and moderate conscious sedation with IV fentanyl and Versed. Condition= stable. Complications=none. Indication for the procedure= patient with a history of symptoms suggestive of multiple sclerosis . The patient was referred to us by his neurologist for diagnostic lumbar puncture to rule out multiple sclerosis. procedure risk and benefits and alternatives discussed with the patient and he was agreeable to proceeding with it. Description of the procedure=the patient was brought into the procedure room and placed in the sitting position , monitors applied, the back prepped with chlorhexidine , skin was localized with 1% lidocaine, then 22-gauge quickie Needle advanced slowly at L4 -5 interlaminar space to get access to the intrathecal space from the first attempt. Cerebrospinal fluid was clear, and no heme no paresthesia, a total of 8 mL of clear cerebrospinal fluid collected in 4 different tubes, the needle removed, Band-Aid applied , patient tolerated the procedure well without any complications, and further management as per his neurologist.
[2018-03-08 09:14] VITALS: RESP 18
[2018-03-08 09:27] VITALS: BP 104/65; PULSE 59
[2018-03-08 09:40] LABS: Glucose,CSF 62 mg/dL (40-70); Total Protein,CSF 39 mg/dL (12-60)
[2018-03-08 10:54] LABS: Appearance,CSF Clear; CSF Tube Number 4
[2018-03-08 10:55] LABS: Nucleated Cells, CSF 0 u/L (0-5); Red Blood Cell,CSF 0 u/L (0-10)
[2018-03-08 16:22] LABS: Rheumatoid Factor 6 IU/mL (0-15)
[2018-03-08 17:25] LABS: DNA Double-Stranded NEGATIVE (NEGATIVE); RNP <0.2 AI
[2018-03-09 10:43] LABS: VDRL, Qualitative CSF Nonreactive (Nonreactive)
[2018-03-09 11:29] LABS: APTT 43 Sec(s) (<43); Dilute Russell Viper Venom 43 Sec(s) (<44)
[2018-03-09 13:32] LABS: IgG - CSF 1.3 mg/dL (0.0 - 3.4); IgG/Albumin Index (CSF) 0.58 (0.00 - 0.77); Immunoglobulin G 853 mg/dL (700 - 1600)
[2018-03-10 09:03] LABS: Lyme IgG/IgM 0.1 Index
== END ==
LOC: ORPAIN 07:28
PROVIDERS: ATTEND Anesthesiology
DX: R20.2 Paresthesia of skin (principal); Z88.2 Allergy status to sulfonamides; Z88.0 Allergy status to penicillin; Z91.013 Allergy to seafood
CPT/HCPCS: 87476; 86592; 86235 ×3; 84439; 88108; 84157; 82945; 82040; 82042; 82784; 83916; 83873; 84443; 84450; 84460; 85730; 86431; 85613; 89050; 86618; 86780; 86038; 86225; 62270; J2250; J2001; J3010; 99152

== ENCOUNTER 2018-03-11 07:14 | Emergency (ER) | payer MEDICAID ==
[2018-03-11 07:21] VITALS: RESP 16
[2018-03-11] MEDS ORDERED: SODIUM CHLORIDE 0.9% 1,000 ML IV STA (07:28)
[2018-03-11] MEDS ORDERED: METOCLOPRAMIDE 5 MG/ML 2 ML VIAL IVP STA (07:28)
[2018-03-11] MEDS ORDERED: diphenhydrAMINE 25 MG CAP PO STA (07:28)
--- NOTE | 2018-03-11 07:40 | ED ---
General Adult HPI - General Chief complaint: Nausea/Vomiting/Diarrhea Stated complaint: Migraine Time Seen by Provider: 03/11/18 07:25 Source: patient, RN notes reviewed, old records reviewed Mode of arrival: wheelchair Limitations: no limitations - History of Present Illness Initial comments: 28-year-old female presents for evaluation of frontal headache. Patient has recent history of MS workup, she received a lumbar puncture on 02 05. She states she laid flat was doing well for 2 days. She went to work last night, worked 12 hour shift. She developed a frontal headache which progressed to nausea and vomiting. She had several episodes of vomiting. She states her headache is significantly improved by lying flat. No fever or chills. No focal numbness or weakness. No vision changes, she does have some photophobia associated with her headache. Headache is dull and aching in nature. - Related Data Home Medications Medication Instructions Recorded Confirmed Albuterol Inhaler [Ventolin Hfa 1 - 2 puff INHALATION RT-Q6H PRN 03/03/18 Inhaler] Allergies Allergy/AdvReac Type Severity Reaction Status Date / Time Penicillins Allergy Intermediate Rash/Hives Verified 03/11/18 07:21 Sulfa (Sulfonamide Allergy Swelling Verified 03/11/18 07:21 Antibiotics) shrimp Allergy Anaphylaxis Uncoded 03/11/18 07:21 Review of Systems ROS Statement: Those systems with pertinent positive or pertinent negative responses have been documented in the HPI. ROS Other: All systems not noted in ROS Statement are negative. Past Medical History Past Medical History: Asthma Additional Past Medical History / Comment(s): migraines, varicose veins, asthma with sinus infections, History of Any Multi-Drug Resistant Organisms: None Reported Past Surgical History: Section, Cholecystectomy, Tubal Ligation, Uterine Ablation Additional Past Surgical History / Comment(s): D&C, Spinal tap 03/08/18 Past Anesthesia/Blood Transfusion Reactions: Previous Problems w/ Anesthesia, Motion Sickness, Postoperative Nausea & Vomiting (PONV) Additional Past Anesthesia/Blood Transfusion Reaction / Comment(s): "hard to wake up" Past Psychological History: No Psychological Hx Reported Smoking Status: Never smoker Past Alcohol Use History: Occasional Past Drug Use History: None Reported - Past Family History Mother Family Medical History: No Reported History General Exam Limitations: no limitations General appearance: alert, in no apparent distress Head exam: Present: atraumatic, normocephalic Eye exam: Present: normal appearance, PERRL, EOMI ENT exam: Present: mucous membranes dry Neck exam: Present: normal inspection, full ROM. Absent: tenderness, meningismus Respiratory exam: Present: normal lung sounds bilaterally. Absent: respiratory distress, wheezes Cardiovascular Exam: Present: regular rate, normal rhythm GI/Abdominal exam: Present: soft. Absent: distended, tenderness, guarding Extremities exam: Present: normal inspection, tenderness, normal capillary refill. Absent: calf tenderness Back exam: Present: normal inspection, other (No visible lumbar puncture site, no hematoma, no ecchymosis). Absent: tenderness Neurological exam: Present: alert, oriented X3, CN II-XII intact. Absent: motor sensory deficit Psychiatric exam: Present: normal affect, normal mood Skin exam: Present: warm, dry, intact. Absent: cyanosis, diaphoretic Course Vital Signs 03/11/18 07:18 Temperature 97.4 F L Pulse Rate 80 Respiratory 16 Rate Blood Pressure 121/74 O2 Sat by Pulse 95 Oximetry Medical Decision Making - Medical Decision Making 28-year-old female presenting with headache status post lumbar puncture. Symptoms consistent with spinal headache. Given Reglan, Benadryl, and caffeine as well as 2 L of IV hydration. Reevaluation, patient's symptoms have significantly improved. Not completely resolved. Patient will be discharged home with instructions on oral rehydration. She will lay flat as much as possible. Return with worsening or changing symptoms. - Lab Data Result diagrams: 03/11/18 07:00 03/11/18 07:00 Lab Results 03/11/18 03/11/18 Range/Units 07:00 07:00 WBC 7.5 (3.8-10.6) k/uL RBC 4.62 (3.80-5.40) m/uL Hgb 12.7 (11.4-16.0) gm/dL Hct 39.0 (34.0-46.0) % MCV 84.3 D (80.0-100.0) fL MCH 27.5 (25.0-35.0) pg MCHC 32.7 (31.0-37.0) g/dL RDW 14.5 (11.5-15.5) % Plt Count 223 (150-450) k/uL Neutrophils % 82 % Lymphocytes % 12 % Monocytes % 3 % Eosinophils % 1 % Basophils % 0 % Neutrophils # 6.1 (1.3-7.7) k/uL Lymphocytes # 0.9 L (1.0-4.8) k/uL Monocytes # 0.2 (0-1.0) k/uL Eosinophils # 0.1 (0-0.7) k/uL Basophils # 0.0 (0-0.2) k/uL Sodium 140 (137-145) mmol/L Potassium 4.0 (3.5-5.1) mmol/L Chloride 107 (98-107) mmol/L Carbon Dioxide 25 (22-30) mmol/L Anion Gap 8 mmol/L BUN 9 (7-17) mg/dL Creatinine 0.64 (0.52-1.04) mg/dL Est GFR (CKD-EPI)AfAm >90 (>60 ml/min/1.73 sqM) Est GFR (CKD-EPI)NonAf >90 (>60 ml/min/1.73 sqM) Glucose 119 H (74-99) mg/dL Calcium 9.6 (8.4-10.2) mg/dL Total Bilirubin 0.3 (0.2-1.3) mg/dL AST 18 (14-36) U/L ALT 32 (9-52) U/L Alkaline Phosphatase 63 (38-126) U/L Total Protein 7.1 (6.3-8.2) g/dL Albumin 4.3 (3.5-5.0) g/dL Lipase 54 (23-300) U/L Disposition Clinical Impression: Dehydration, Headache following lumbar puncture Disposition: HOME SELF-CARE Condition: Good Instructions: Acute Nausea and Vomiting (ED), Acute Headache (ED) Is patient prescribed a controlled substance at d/c from ED?: No Referrals: Nixon Jha MD [Primary Care Provider] - 1-2 days Time of Disposition: 10:03
[2018-03-11] MEDS ORDERED: diphenhydrAMINE 50 MG/ML 1 ML VIAL IVP STA (07:43)
[2018-03-11] MEDS ORDERED: CAFFEINE-SODIUM BENZOATE 500 MG in SODIUM CHLORIDE 0.9% 1,000 ML IVPB ONE (07:45)
[2018-03-11 08:11] LABS: Basophils % (A) 0 %; Eosinophils # (A) 0.1 k/uL (0-0.7); Eosinophils % (A) 1 %; HGB 12.7 gm/dL (11.4-16.0); Lymphocytes # (A) 0.9 k/uL (1.0-4.8); Lymphocytes % (A) 12 %; MCH 27.5 pg (25.0-35.0); MCHC 32.7 g/dL (31.0-37.0); Mean Platelet Volume 6.3; Monocytes # (A) 0.2 k/uL (0-1.0); Monocytes % (A) 3 %; Neutrophils # (A) 6.1 k/uL (1.3-7.7); Neutrophils % (A) 82 %; Platelet Count 223 k/uL (150-450); RBC 4.62 m/uL (3.80-5.40); RDW 14.5 % (11.5-15.5); WBC 7.5 k/uL (3.8-10.6)
[2018-03-11 08:12] LABS: MCV 84.3 fL (80.0-100.0)
[2018-03-11 08:27] LABS: ALT 32 U/L (9-52); AST 18 U/L (14-36); Albumin 4.3 g/dL (3.5-5.0); Alkaline Phosphatase 63 U/L (38-126); Anion Gap 8 mmol/L; Blood Urea Nitrogen 9 mg/dL (7-17); Calcium 9.6 mg/dL (8.4-10.2); Carbon Dioxide 25 mmol/L (22-30); Chloride 107 mmol/L (98-107); Glucose 119 mg/dL (74-99); Lipase 54 U/L (23-300); Sodium 140 mmol/L (137-145); Total Bilirubin 0.3 mg/dL (0.2-1.3); Total Protein 7.1 g/dL (6.3-8.2)
[2018-03-11 10:10] VITALS: BP 128/72; PULSE 70; TEMP 98
== END 2018-03-11 10:06 | disposition home or self-care (01) ==
LOC: EC 07:14
DX: G97.1 Other reaction to spinal and lumbar puncture (principal); E86.0 Dehydration; G43.909 Migraine, unspecified, not intractable, without status migrainosus; J45.909 Unspecified asthma, uncomplicated; Z98.890 Other specified postprocedural states; Z88.0 Allergy status to penicillin; Z88.2 Allergy status to sulfonamides; Z91.013 Allergy to seafood; Y84.4 Aspiration of fluid as the cause of abnormal reaction of the patient, or of later complication, without mention of misadventure at the time of the procedure
CPT/HCPCS: 36415; 80053; 83690; 85025; 99284; 96365; 96375 ×2; J1200; J2765

== ENCOUNTER 2018-09-07 10:27 | Emergency (ER) | payer MEDICAID ==
[2018-09-07 10:42] VITALS: RESP 18; TEMP 98.2
[2018-09-07] MEDS ORDERED: ONDANSETRON 4 MG/2 ML VIAL IVP STA (10:54)
[2018-09-07] MEDS ORDERED: SODIUM CHLORIDE 0.9% 1,000 ML IV STA (10:54)
[2018-09-07] MEDS ORDERED: ACETAMINOPHEN TAB 500 MG TAB PO STA (10:55)
--- NOTE | 2018-09-07 10:57 | ED ---
Abdominal Pain HPI - General Chief Complaint: Abdominal Pain Stated Complaint: Abd Pain Time Seen by Provider: 09/07/18 10:43 Source: patient Mode of arrival: ambulatory Limitations: no limitations - History of Present Illness Initial Comments: 28-year-old female patient presents to the emergency department today for evaluation of left upper quadrant abdominal pain. Patient states symptoms started 4 days ago while on vacation. Patient states she's been having the pain daily. Patient states it did worsen today. States she went to urgent care and they sent her here for further evaluation. Patient states she did have a fever a few days ago. She denies any hematuria, dysuria, urinary frequency, urinary urgency. She denies any constipation or diarrhea. Patient has had cholecystectomy and C-sections in the past but no other abdominal surgeries. States that she has been nauseated but has not vomited. States the pain does radiate through to her back. Patient denies any recent rash, shortness breath, chest pain, numbness, tingling, dizziness, weakness, headache, visual changes, or any other complaints. - Related Data Home Medications Medication Instructions Recorded Confirmed Phentermine HCl [Adipex-P] 37.5 mg PO DAILY 09/07/18 09/07/18 Previous Rx's Medication Instructions Recorded Famotidine [Pepcid] 20 mg PO HS #30 tablet 09/07/18 Allergies Allergy/AdvReac Type Severity Reaction Status Date / Time Penicillins Allergy Intermediate Rash/Hives Verified 09/07/18 10:48 Sulfa (Sulfonamide Allergy Swelling Verified 09/07/18 10:48 Antibiotics) shrimp Allergy Anaphylaxis Uncoded 03/11/18 07:21 Review of Systems ROS Statement: Those systems with pertinent positive or pertinent negative responses have been documented in the HPI. ROS Other: All systems not noted in ROS Statement are negative. Past Medical History Past Medical History: Asthma Additional Past Medical History / Comment(s): migraines, varicose veins, asthma with sinus infections, History of Any Multi-Drug Resistant Organisms: None Reported Past Surgical History: Section, Cholecystectomy, Tubal Ligation, Uterine Ablation Additional Past Surgical History / Comment(s): D&C, Spinal tap 03/08/18 Past Anesthesia/Blood Transfusion Reactions: Previous Problems w/ Anesthesia, Motion Sickness, Postoperative Nausea & Vomiting (PONV) Additional Past Anesthesia/Blood Transfusion Reaction / Comment(s): "hard to wake up" Past Psychological History: No Psychological Hx Reported Smoking Status: Never smoker Past Alcohol Use History: Occasional Past Drug Use History: None Reported - Past Family History Mother Family Medical History: No Reported History General Exam Limitations: no limitations General appearance: alert, in no apparent distress, other (Physical well- developed, well-nourished adult female patient in no acute distress. Vital signs upon presentation are temperature 98.2F, pulse 94, respirations 18, blood pressure 148/116, pulse ox 98% on room air.) Eye exam: Present: normal appearance, PERRL, EOMI. Absent: scleral icterus, conjunctival injection, periorbital swelling ENT exam: Present: normal exam, normal oropharynx, mucous membranes moist Respiratory exam: Present: normal lung sounds bilaterally. Absent: respiratory distress, wheezes, rales, rhonchi, stridor Cardiovascular Exam: Present: regular rate, normal rhythm, normal heart sounds. Absent: systolic murmur, diastolic murmur, rubs, gallop, clicks GI/Abdominal exam: Present: soft, tenderness (Left upper and left lower quadrant tenderness), normal bowel sounds. Absent: distended, guarding, rebound, rigid Neurological exam: Present: alert, oriented X3, CN II-XII intact Psychiatric exam: Present: normal affect, normal mood Skin exam: Present: warm, dry, intact, normal color. Absent: rash Course Vital Signs 09/07/18 10:39 Temperature 98.2 F Pulse Rate 94 Respiratory 18 Rate Blood Pressure 148/116 O2 Sat by Pulse 98 Oximetry Medical Decision Making - Medical Decision Making 28-year-old female patient presented to the emergency department today for ev aluation of left-sided abdominal pain. Physical examination did reveal left upper and left lower quadrant tenderness. Labs reviewed and are unremarkable. CT abdomen and pelvis was obtained and showed no acute findings. Did discuss findings and results with the patient. We did discuss possible gastritis versus peptic ulcer disease as a cause for her symptoms. She'll be given a GI cocktail and a prescription for Pepcid. She is instructed to follow-up with her primary care physician discuss referral to GI specialist for possible upper endoscopy testing. Return parameters were discussed in detail. She verbalizes understanding and agrees with this plan. - Lab Data Result diagrams: 09/07/18 11:01 09/07/18 11:01 Lab Results 05/01/1809/07/18 09/07/18 Range/Units 11:01 11:01 11:01 WBC 6.5 (3.8-10.6) k/uL RBC 5.10 (3.80-5.40) m/uL Hgb 14.8 (11.4-16.0) gm/dL Hct 44.8 (34.0-46.0) % MCV 87.9 (80.0-100.0) fL MCH 29.0 (25.0-35.0) pg MCHC 33.0 (31.0-37.0) g/dL RDW 14.2 (11.5-15.5) % Plt Count 243 (150-450) k/uL Neutrophils % 67 % Lymphocytes % 22 % Monocytes % 4 % Eosinophils % 5 % Basophils % 1 % Neutrophils # 4.4 (1.3-7.7) k/uL Lymphocytes # 1.4 (1.0-4.8) k/uL Monocytes # 0.3 (0-1.0) k/uL Eosinophils # 0.3 (0-0.7) k/uL Basophils # 0.0 (0-0.2) k/uL Sodium 141 (137-145) mmol/L Potassium 4.5 (3.5-5.1) mmol/L Chloride 106 (98-107) mmol/L Carbon Dioxide 27 (22-30) mmol/L Anion Gap 8 mmol/L BUN 10 (7-17) mg/dL Creatinine 0.53 (0.52-1.04) mg/dL Est GFR (CKD-EPI)AfAm >90 (>60 ml/min/1.73 sqM) Est GFR (CKD-EPI)NonAf >90 (>60 ml/min/1.73 sqM) Glucose 76 (74-99) mg/dL Calcium 10.0 (8.4-10.2) mg/dL Total Bilirubin 0.4 (0.2-1.3) mg/dL AST 20 (14-36) U/L ALT 26 (9-52) U/L Alkaline Phosphatase 66 (38-126) U/L Total Protein 7.3 (6.3-8.2) g/dL Albumin 4.7 (3.5-5.0) g/dL Amylase 64 (30-110) U/L Lipase 139 (23-300) U/L Urine Color Light Yellow Urine Appearance Clear (Clear) Urine pH 8.0 (5.0-8.0) Ur Specific [place] 1.009 (1.001-1.035) Urine Protein Negative (Negative) Urine Glucose (UA) Negative (Negative) Urine Ketones Negative (Negative) Urine Blood Negative (Negative) Urine Nitrite Negative (Negative) Urine Bilirubin Negative (Negative) Urine Urobilinogen <2.0 (<2.0) mg/dL Ur Leukocyte Esterase Negative (Negative) - Radiology Data Radiology results: report reviewed, image reviewed CT abdomen and pelvis was obtained. Report reviewed in its entirety. Impression by Dr. Sousa significant acute findings. Disposition Clinical Impression: Abdominal pain Disposition: HOME SELF-CARE Condition: Good Instructions (If sedation given, give patient instructions): Abdominal Pain (ED) Additional Instructions: Take medication as directed. Follow up with your primary care physician for recheck in 1-2 days. Return to the emergency department for any new, worsening, or concerning symptoms. Prescriptions: Famotidine [Pepcid] 20 mg PO HS #30 tablet Is patient prescribed a controlled substance at d/c from ED?: No Referrals: Nixon Jha MD [Primary Care Provider] - 1-2 days Time of Disposition: 11:57
[2018-09-07] MEDS ORDERED: diphenhydrAMINE 50 MG/ML 1 ML VIAL IVP STA (11:06)
[2018-09-07 11:16] LABS: Basophils % (A) 1 %; Eosinophils # (A) 0.3 k/uL (0-0.7); Eosinophils % (A) 5 %; HCT 44.8 % (34.0-46.0); HGB 14.8 gm/dL (11.4-16.0); Lymphocytes # (A) 1.4 k/uL (1.0-4.8); Lymphocytes % (A) 22 %; MCV 87.9 fL (80.0-100.0); Mean Platelet Volume 6.8; Monocytes # (A) 0.3 k/uL (0-1.0); Monocytes % (A) 4 %; Neutrophils # (A) 4.4 k/uL (1.3-7.7); Neutrophils % (A) 67 %; Platelet Count 243 k/uL (150-450); RDW 14.2 % (11.5-15.5); WBC 6.5 k/uL (3.8-10.6)
[2018-09-07 11:36] LABS: ALT 26 U/L (9-52); AST 20 U/L (14-36); Albumin 4.7 g/dL (3.5-5.0); Alkaline Phosphatase 66 U/L (38-126); Amylase 64 U/L (30-110); Anion Gap 8 mmol/L; Blood Urea Nitrogen 10 mg/dL (7-17); Carbon Dioxide 27 mmol/L (22-30); Chloride 106 mmol/L (98-107); Glucose 76 mg/dL (74-99); Lipase 139 U/L (23-300); Potassium 4.5 mmol/L (3.5-5.1); Sodium 141 mmol/L (137-145); Total Bilirubin 0.4 mg/dL (0.2-1.3); Total Protein 7.3 g/dL (6.3-8.2)
[2018-09-07 11:40] LABS: Appearance,Urine Clear (Clear); Bilirubin,Urine Negative (Negative); Blood,Urine Negative (Negative); Color,Urine Light Yellow; Glucose,Urine (UA) Negative (Negative); Ketones,Urine Negative (Negative); Leukocyte Esterase,Urine Negative (Negative); Nitrite,Urine Negative (Negative); Protein,Urine Negative (Negative); Specific Gravity,Urine 1.009 (1.001-1.035); Urobilinogen,Urine <2.0 mg/dL (<2.0)
--- NOTE | 2018-09-07 11:54 | CT ---
EXAMINATION TYPE: CT abdomen pelvis w con DATE OF EXAM: 09/07/2018 HISTORY: LUQ pain CT DLP: 1289.4mGycm Automated Exposure Control for Dose Reduction was Utilized. CONTRAST: CT scan of the abdomen and pelvis is performed without oral but with IV Contrast, patient injected wi th 100 mL of Isovue 300. COMPARISON: CT abdomen and pelvis July 12, 2017 FINDINGS: LUNG BASES: No significant abnormality is appreciated. LIVER/GB: Cholecystectomy clips are redemonstrated. PANCREAS: No significant abnormality is seen. SPLEEN: No significant abnormality is seen. ADRENALS: No significant abnormality is seen. KIDNEYS: No significant abnormality is seen. BOWEL: Normal-appearing appendix is seen from the cecum in the right upper pelvis. No suspicious smal l or large bowel dilatation. UTERUS/ADNEXA: Anteverted uterus is present. Both ovaries are normal in size. LYMPH NODES: No greater than 1cm abdominal or pelvic lymph nodes are appreciated. OSSEOUS STRUCTURES: No significant abnormality is seen. OTHER: No significant additional abnormality is seen. IMPRESSION: No significant acute finding is seen to account for patient's clinical symptoms.
[2018-09-07] MEDS ORDERED: MAG HYDROX/AL HYDROX/SIMETH 30 ML, HYOSCYAMINE ELIXIR 10 ML, CIMETIDINE HCL 300 MG, LID... PO STA ×4 (11:56)
[2018-09-07 12:48] VITALS: BP 123/77; PULSE 97
== END 2018-09-07 12:48 | disposition home or self-care (01) ==
LOC: EC 10:27
DX: R10.12 Left upper quadrant pain (principal); R50.9 Fever, unspecified; R11.0 Nausea; Z79.899 Other long term (current) drug therapy; Z88.0 Allergy status to penicillin; Z88.2 Allergy status to sulfonamides; Z91.013 Allergy to seafood; Z90.49 Acquired absence of other specified parts of digestive tract
CPT/HCPCS: 36415; 80053; 82150; 83690; 85025; 81003; 74177; 99284; 96374; 96375; 96361; J1200; J2405; Q9967

== ENCOUNTER → 2019-12-27 | Outpatient (CLI) | payer MEDICAID ==
--- NOTE | 2019-12-27 15:20 | CT ---
EXAMINATION TYPE: CT abdomen pelvis wo con DATE OF EXAM: 12/27/2019 HISTORY: RT quadrant pain, pt feels more so after eating food with substance. Has gallbladder removed . CT DLP: 1405.8 mGycm. Automated Exposure Control for Dose Reduction was Utilized. TECHNIQUE: CT scan of the abdomen and pelvis is performed with oral but without IV contrast. COMPARISON: CT abdomen and pelvis September 07, [address] 2017[address] FINDINGS: Within the limitations of a non-contrast study, the following observations are made. LUNG BASES: No significant abnormality is appreciated. LIVER/GB: Liver is hypodense relative to spleen consistent with diffuse fatty infiltration. Cholecyst ectomy clips are redemonstrated. No biliary dilatation. PANCREAS: No significant abnormality is seen. SPLEEN: No significant abnormality is seen. ADRENALS: No significant abnormality is seen. KIDNEYS: Slight asymmetric fullness to bilateral renal pelvises without calyceal dilatation on curren t study. No obstructing calculi or significant distal hydroureter. Bladder shows no intraluminal calc daphney. BOWEL: Oral contrast reaches level of the mid transverse colon. No suspicious small or large bowel di latation. Normal-appearing appendix seen from cecum in the right pelvis. Slight redundancy of the sig moid colon. GENITAL ORGANS: Anteverted uterus projects just right of midline. Both ovaries redemonstrated, left s lightly larger than right similar to prior study. LYMPH NODES: No greater than 1cm abdominal or pelvic lymph nodes are appreciated. OSSEOUS STRUCTURES: No significant abnormality is seen. OTHER: Small to Moderate-sized fat-containing umbilical hernia redemonstrated. IMPRESSION: No renal stones or hydronephrosis is seen bilaterally. No suspicious new or acute finding s seen to account for patient's symptoms.
== END | disposition home or self-care (01) ==
LOC: RADCTMAIN 13:28
PROVIDERS: ATTEND Family Medicine
DX: R10.9 Unspecified abdominal pain (principal)
CPT/HCPCS: 74176

== ENCOUNTER 2020-02-13 10:19 | Emergency (ER) | payer MEDICAID ==
[2020-02-13 10:29] VITALS: TEMP 98.3
[2020-02-13] MEDS ORDERED: methylPREDNISolone SOD SUCCI 125 MG/2 ML VIAL IM ONE (10:34)
[2020-02-13] MEDS ORDERED: ALBUTEROL NEBULIZED 2.5 MG/3 ML INHALATION STA (10:34)
--- NOTE | 2020-02-13 11:18 | XR ---
EXAMINATION TYPE: XR chest 2V DATE OF EXAM: 02/13/2020 CLINICAL HISTORY: Cough, short of breath, palpitations. History of asthma. TECHNIQUE: Frontal and lateral views of the chest are obtained. COMPARISON: 02/26/2012 chest radiograph FINDINGS: The cardiomediastinal silhouette is within normal limits for size. Pulmonary vasculature i s normal. There is no focal air space opacity, pleural effusion, or pneumothorax seen. The osseous st ructures are intact. IMPRESSION: No acute cardiopulmonary process.
--- NOTE | 2020-02-13 11:36 | ED ---
URI HPI - General Chief Complaint: Upper Respiratory Infection Stated Complaint: DIF,cough, heart fluttering Time Seen by Provider: 02/13/20 10:30 Source: patient Mode of arrival: ambulatory Limitations: no limitations - History of Present Illness Initial Comments: 29-year-old female presented for cough. Patient states that she has had a significant cough that has become more persistent. Patient states it occurs usually around the time that the seasons change. She states she does have a history of asthma. Patient states that she is out of her Ventolin inhaler. Patient states that she usually needs a dose of steroids and things get better. Patient states that she did express some palpitations after using the last of her inhaler. Patient denied chest pain on arrival. Denies leg swelling, hemoptysis, history of DVT/PE, exogenous hormone use, history of cancer, calf pain, recent surgeries or travel. Patient denies known fevers. Admits to ex posure to [facility]. Patient has no additional complaints. Upon arrival she appears well nontoxic in no acute distress. Coughing. - Related Data Home Medications Medication Instructions Recorded Confirmed Phentermine HCl [Adipex-P] 37.5 mg PO DAILY 09/07/18 09/07/18 Previous Rx's Medication Instructions Recorded Famotidine [Pepcid] 20 mg PO HS #30 tablet 09/07/18 Albuterol Nebulized [Ventolin 2.5 mg INHALATION Q4H PRN 7 Days 02/13/20 Nebulized] #28 nebu Promethaz-Cod 6.25-10 mg/5 ml 5 ml PO Q8HR PRN 3 Days #45 ml 02/13/20 [Phenergan with Codeine] predniSONE 50 mg PO DAILY 3 Days #3 tab 02/13/20 Allergies Allergy/AdvReac Type Severity Reaction Status Date / Time Penicillins Allergy Intermediate Rash/Hives Verified 02/13/20 10:27 Sulfa (Sulfonamide Allergy Swelling Verified 02/13/20 10:27 Antibiotics) shrimp Allergy Anaphylaxis Uncoded 03/11/18 07:21 Review of Systems ROS Statement: Those systems with pertinent positive or pertinent negative responses have been documented in the HPI. ROS Other: All systems not noted in ROS Statement are negative. Past Medical History Past Medical History: Asthma Additional Past Medical History / Comment(s): migraines, varicose veins, asthma with sinus infections, History of Any Multi-Drug Resistant Organisms: None Reported Past Surgical History: Section, Cholecystectomy, Tubal Ligation, Uterine Ablation Additional Past Surgical History / Comment(s): D&C, Spinal tap 03/08/18 Past Anesthesia/Blood Transfusion Reactions: Previous Problems w/ Anesthesia, Motion Sickness, Postoperative Nausea & Vomiting (PONV) Additional Past Anesthesia/Blood Transfusion Reaction / Comment(s): "hard to wake up" Past Psychological History: No Psychological Hx Reported Smoking Status: Never smoker Past Alcohol Use History: Occasional Past Drug Use History: None Reported - Past Family History Mother Family Medical History: No Reported History General Exam - General Exam Comments Initial Comments: General: The patient is awake and alert, in no distress Eye: +3 mm pupils are equal, round and reactive to light, extra-ocular movements are intact. No nystagmus. There is normal conjunctiva bilaterally. No signs of icterus. Ears, nose, mouth and throat: There are moist mucous membranes and no oral lesions. Neck: The neck is supple, there is no tenderness or JVD. Cardiovascular: There is a regular rate and rhythm. No murmur, rub or gallop is appreciated. Respiratory: Lungs are clear to auscultation, respirations are non-labored, breath sounds are equal. No wheezes, stridor, rales, or rhonchi. Dry cough Musculoskeletal: Normal ROM, no tenderness. Strength 5/5. Sensation intact. Radial pulses equal bilaterally 2+. Neurological: A&O x 3. CN II-XII intact grossly, There are no obvious motor or sensory deficits. Coordination appears grossly intact. Speech is normal. Skin: Skin is warm and dry and no rashes or lesions are noted. No calf pain to palpation, no LE swelling/edema. Psychiatric: Cooperative, appropriate mood & affect, normal judgment. Limitations: no limitations Course Vital Signs 02/13/20 02/13/20 02/13/20 10:27 10:52 11:01 Temperature 98.3 F Pulse Rate 84 78 81 Respiratory 18 Rate Blood Pressure 135/87 O2 Sat by Pulse 98 Oximetry 02/13/20 11:44 Temperature Pulse Rate 79 Respiratory 16 Rate Blood Pressure 120/74 O2 Sat by Pulse 95 Oximetry Medical Decision Making - Medical Decision Making PERC (-). CXR clear. Patient has obvious URI symptoms. Patient did complain of some discomfort left side of chest after the breathing treatment. Patient EKG no acute findings. Patient appears well nontoxic at this time we will treat symptomatically with steroids/albuterol and have patient f/u with PCP f/u. Pt prescribed cough medicatiosn that contained codeine i discussed the importance of safe use/risks of /overdose. Patient discharged appearing well. Patient is aware of return parameters. Discussed cdase including course with attending Dr. Guzman who is agreeable to care plan and dishcarge. Disposition Clinical Impression: Heart palpitations, Cough, Congestion of nasal sinus, Dyspnea Disposition: HOME SELF-CARE Condition: Good Instructions (If sedation given, give patient instructions): Upper Respiratory Infection (ED) Additional Instructions: Please use medication as discussed. Please follow-up with family doctor in the next 2 days. Please return to emergency room if the symptoms increase or worsen or for any other concerns. Prescriptions: Promethaz-Cod 6.25-10 mg/5 ml [Phenergan with Codeine] 5 ml PO Q8HR PRN 3 Days #45 ml PRN Reason: Cough predniSONE 50 mg PO DAILY 3 Days #3 tab Albuterol Nebulized [Ventolin Nebulized] 2.5 mg INHALATION Q4H PRN 7 Days #28 nebu PRN Reason: Dyspnea Is patient prescribed a controlled substance at d/c from ED?: No Referrals: Nixon Jha MD [Primary Care Provider] - 1-2 days Time of Disposition: 11:36
[2020-02-13 11:46] VITALS: BP 120/74; PULSE 79; RESP 16
== END 2020-02-13 11:46 | disposition home or self-care (01) ==
LOC: EC 10:19
DX: R09.81 Nasal congestion (principal); R06.00 Dyspnea, unspecified; R05 Cough; R00.2 Palpitations; Z88.0 Allergy status to penicillin; Z88.2 Allergy status to sulfonamides; Z91.013 Allergy to seafood
CPT/HCPCS: 94640; 93005; 71046; 99283; 96372; U0003; J2930

== ENCOUNTER → 2020-02-27 | Outpatient (CLI) | payer MEDICAID ==
--- NOTE | 2020-02-27 11:29 | P.STRESS ---
- Stress Test Note Stress Test Results/Findings: Exam Performed: stress test Exam Date: 02/27/20 Reason for Exam: SHORT OF BREATH, CHEST PRESSURE Height: 5 ft 3 in Weight: 112.491 kg Protocol: ROMEO Stage: IV Duration of Exercise: 9:30 Resting Heart Rate: 88 Resting Blood Pressure: 127/80 Maximum Achieved Heart Rate: 173 Maximum Achieved Blood Pressure: 189/61 85% PMHR: 161 100% PMHR: 189 METS: 11.1 Technologist Comment: Stress Test Results/Findings: This is a 29-year-old female being evaluated for symptoms of chest pain, shortness of breath and palpitations. Stress data: Baseline EKG showed sinus rhythm with small [place] interval, QRS duration. Blood pressure at rest is 127/80 with pulse rate of 88. Patient walked on a Romeo protocol for 9 minutes and 30 seconds achieving a maximum rate of 173 with a peak blood pressure of 189/61. EKGs taken during and after exercise did not reveal any significant changes from baseline. Patient complained of some atypical chest pain and dizziness which gradually improved with rest. No Final impression: #1. Negative stress test #2. Patient did not experience any chest pain #3. No arrhythmias are noted #4 patient complained of atypical chest pain and dizziness, in recovery, which gradually resolved
--- NOTE | 2020-02-27 12:40 | ECHOF ---
Referral Reason:R06.09 other forms of dyspnea MEASUREMENTS -------- HEIGHT: 160.0 cm WEIGHT: 112.5 kg BP: RVIDd: 2.6 cm (< 3.3) IVSd: 1.5 cm (0.6 - 1.1) LVIDd: 3.4 cm (3.9 - 5.3) LVPWd: 1.9 cm (0.6 - 1.1) IVSs: 1.8 cm LVIDs: 2.4 cm LVPWs: 1.5 cm LA Diam: 3.1 cm (2.7 - 3.8) Ao Diam: 2.7 cm (2.0 - 3.7) AV Cusp: 1.9 cm (1.5 - 2.6) LA Diam: 3.7 cm (2.7 - 3.8) MV EXCURSION: 17.586 mm (> 18.000) MV EF SLOPE: 60 mm/s (70 - 150) EPSS: 0.6 cm MV E Usama: 0.54 m/s MV DecT: 153 ms MV A Usama: 0.62 m/s MV E/A Ratio: 0.87 RAP: 5.00 mmHg RVSP: 10.95 mmHg FINDINGS -------- Sinus rhythm. This was a technically good study. The left ventricular size is normal. There is moderate concentric left ventricular hypertrophy. O verall left ventricular systolic function is normal with, an EF between 55 - 60 %. The right ventricle is normal in size. The left atrial size is normal. The right atrial size is normal. The aortic valve is trileaflet, and appears structurally normal. No aortic stenosis or regurgitation. Mild mitral regurgitation is present. Mild tricuspid regurgitation present. Right ventricular systolic pressure is normal at < 35 mmHg. There is no pulmonic regurgitation present. The aortic root size is normal. There is no pericardial effusion. CONCLUSIONS -------- 1. The left ventricular size is normal. 2. There is moderate concentric left ventricular hypertrophy. 3. Overall left ventricular systolic function is normal with, an EF between 55 - 60 %. 4. The right ventricle is normal in size. 5. The left atrial size is normal. 6. The right atrial size is normal. 7. Mild mitral regurgitation is present. 8. Mild tricuspid regurgitation present. 9. There is no pulmonic regurgitation present. 10. The aortic root size is normal. 11. There is no pericardial effusion. HOSPITAL AIDE: Shira Torres RDCS
--- NOTE | 2020-02-27 13:10 | EST ---
Stress Test Results/Findings: Exam Performed: stress test Exam Date: 02/27/20 Reason for Exam: SHORT OF BREATH, CHEST PRESSURE Height: 5 ft 3 in Weight: 112.491 kg Protocol: ROMEO Stage: IV Duration of Exercise: 9:30 Resting Heart Rate: 88 Resting Blood Pressure: 127/80 Maximum Achieved Heart Rate: 173 Maximum Achieved Blood Pressure: 189/61 85% PMHR: 161 100% PMHR: 189 METS: 11.1 Technologist Comment: Stress Test Results/Findings: This is a 29-year-old female being evaluated for symptoms of chest pain, shortness of breath and palpitations. Stress data: Baseline EKG showed sinus rhythm with small RI interval, QRS duration. Blood pressure at rest is 127/80 with pulse rate of 88. Patient walked on a Romeo protocol for 9 minutes and 30 seconds achieving a maximum rate of 173 with a peak blood pressure of 189/61. EKGs taken during and after exercise did not reveal any significant changes from baseline. Patient complained of some atypical chest pain and dizziness which gradually improved with rest. No Final impression: #1. Negative stress test #2. Patient did not experience any chest pain #3. No arrhythmias are noted #4 patient complained of atypical chest pain and dizziness, in recovery, which gradually resolved MTDD
== END | disposition home or self-care (01) ==
LOC: RADNMMAIN 10:27
PROVIDERS: ATTEND Internal Medicine
DX: I08.1 Rheumatic disorders of both mitral and tricuspid valves (principal); R06.09 Other forms of dyspnea
CPT/HCPCS: 93017; 93306

== ENCOUNTER → 2020-03-19 | Outpatient (CLI) | payer MEDICAID | END | disposition home or self-care (01) | LOC: LABWHC1 10:14 | PROVIDERS: ATTEND Internal Medicine Critical Care Medicine | DX: J45.909 Unspecified asthma, uncomplicated (principal) | CPT/HCPCS: 36415; 82785; 85008 ==

== ENCOUNTER → 2020-03-31 | Outpatient (CLI) | payer MEDICAID ==
--- NOTE | 2020-03-31 18:03 | CT ---
CT CHEST FOR PULMONARY EMBOLISM. EXAMINATION TYPE: CT angio chest DATE OF EXAM: 03/31/2020 INDICATION: c/o SOB CT DLP: 541.1 mGycm, Automated exposure control for dose reduction was used. CONTRAST: Patient injected with 100 mL of Isovue 370. COMPARISON: None TECHNIQUE: CT of the chest is performed on a spiral scan at 2 mm thick sections. Study is performed with intravenous contrast. Timing is greater within the arterial system in the pulmonary arteries johnson iting evaluation for pulmonary embolism. This will limit additional portions of the evaluation. 3-D MIP images reconstructed by the technologist are reviewed on the computer in the coronal and sagittal planes. FINDINGS: No obvious persistent filling defects are evident to suggest an acute pulmonary embolism. No aortic d issection or aneurysm is evident. No mediastinal or hilar adenopathy enlarged by CT criteria is evident. The ascending aorta diameter at the level of the main pulmonary artery is 2.5 cm. The main pulmonary artery diameter at the bifur cation is 3.1 cm. Correlate for pulmonary hypertension. Lung windows are clear. Limited CT sections are obtained the lung bases. There is moderate fatty infiltration to the liver. IMPRESSIONS: 1. Normal CTA Chest
== END | disposition home or self-care (01) ==
LOC: RADCTMAIN 15:07
PROVIDERS: ATTEND Internal Medicine Critical Care Medicine
DX: R06.02 Shortness of breath (principal); Z88.2 Allergy status to sulfonamides; Z91.013 Allergy to seafood
CPT/HCPCS: 71275; Q9967

== ENCOUNTER 2020-04-03 06:58 | Emergency (ER) | payer MEDICAID ==
[2020-04-03 07:02] VITALS: BP 129/86; PULSE 71; RESP 18; TEMP 98.4
[2020-04-03] MEDS ORDERED: SODIUM CHLORIDE 0.9% 1,000 ML IV STA (07:14)
[2020-04-03] MEDS ORDERED: IOPAMIDOL CONTRAST (ORAL USE) VIAL PO PRN (07:14)
[2020-04-03] MEDS ORDERED: FAMOTIDINE 20 MG/2 ML VIAL IV STA (07:15)
--- NOTE | 2020-04-03 07:21 | ED ---
General Adult HPI - General Chief complaint: Abdominal Pain Stated complaint: Hernia issues Time Seen by Provider: 04/03/20 07:08 Source: patient, RN notes reviewed Mode of arrival: ambulatory Limitations: no limitations - History of Present Illness Initial comments: Patient is a pleasant 30-year-old female presenting to the emergency Department with complaints of epigastric pain. 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 Patient states her hernia popped out. Patient does have hernia in the epigastric region. Patient states she was able to pop it and however still having some discomfort. No nausea vomiting. No fever. Patient does have history of similar symptoms previous. - Related Data Home Medications Medication Instructions Recorded Confirmed Albuterol Inhaler [Ventolin Hfa 1 puff INHALATION RT-Q6H PRN 04/03/20 04/03/20 Inhaler] Albuterol Nebulized [Ventolin 2.5 mg INHALATION RT-Q4H PRN 04/03/20 04/03/20 Nebulized] Budesonide/Formoterol Fumarate 2 puff INHALATION RT-BID 04/03/20 04/03/20 [Symbicort 160-4.5 Mcg Inhaler] Cholecalciferol [Vitamin D3 (25 5,000 units PO DAILY 04/03/20 04/03/20 Mcg = 1000 Iu)] Esomeprazole Magnesium [NexIUM] 20 mg PO DAILY 04/03/20 04/03/20 Levocetirizine Dihydrochloride 5 mg PO DAILY 04/03/20 04/03/20 [Xyzal] Montelukast [Singulair] 10 mg PO HS 04/03/20 04/03/20 Allergies Allergy/AdvReac Type Severity Reaction Status Date / Time Penicillins Allergy Intermediate Rash/Hives Verified 04/03/20 08:13 Sulfa (Sulfonamide Allergy Swelling Verified 04/03/20 08:13 Antibiotics) shrimp Allergy Anaphylaxis Uncoded 04/03/20 07:02 Review of Systems ROS Statement: Those systems with pertinent positive or pertinent negative responses have been documented in the HPI. ROS Other: All systems not noted in ROS Statement are negative. Constitutional: Denies: fever Eyes: Denies: eye pain ENT: Denies: ear pain Respiratory: Denies: cough Cardiovascular: Denies: chest pain Endocrine: Denies: fatigue Gastrointestinal: Reports: as per HPI, abdominal pain. Denies: nausea, vomiting Genitourinary: Denies: dysuria Musculoskeletal: Denies: back pain Skin: Denies: rash Neurological: Denies: weakness Past Medical History Past Medical History: Asthma Additional Past Medical History / Comment(s): migraines, varicose veins, asthma with sinus infections, History of Any Multi-Drug Resistant Organisms: None Reported Past Surgical History: Section, Cholecystectomy, Tubal Ligation, Uterine Ablation Additional Past Surgical History / Comment(s): D&C, Spinal tap 03/08/18 Past Anesthesia/Blood Transfusion Reactions: Previous Problems w/ Anesthesia, Motion Sickness, Postoperative Nausea & Vomiting (PONV) Additional Past Anesthesia/Blood Transfusion Reaction / Comment(s): "hard to wake up" Past Psychological History: No Psychological Hx Reported Smoking Status: Never smoker Past Alcohol Use History: Occasional Past Drug Use History: None Reported - Past Family History Mother Family Medical History: No Reported History General Exam Limitations: no limitations General appearance: alert, in no apparent distress Head exam: Present: normocephalic Eye exam: Present: normal appearance Neck exam: Present: normal inspection Respiratory exam: Present: normal lung sounds bilaterally Cardiovascular Exam: Present: regular rate, normal rhythm Expanded Peripheral pulses: 2+: Dorsalis Pedis (R), Dorsalis Pedis (L) GI/Abdominal exam: Present: soft, tenderness (Patient does have mild tenderness in the epigastric region. Questionable ventral hernia with mild tenderness that does appear reducible.), normal bowel sounds. Absent: distended, guarding, rebound, rigid, pulsatile mass Extremities exam: Present: normal inspection Neurological exam: Present: alert Psychiatric exam: Present: normal affect, normal mood Skin exam: Present: normal color Course Vital Signs 04/03/20 06:59 Temperature 98.4 F Pulse Rate 71 Respiratory 18 Rate Blood Pressure 129/86 O2 Sat by Pulse 98 Oximetry Medical Decision Making - Medical Decision Making Patient reevaluated and requesting discharge home. Patient is feeling better. Patient updated on CT results and need for follow-up. - Lab Data Result diagrams: 04/03/20 07:31 04/03/20 07:31 Lab Results 04/03/20 04/03/20 Range/Units 07:31 07:31 WBC 9.6 (3.8-10.6) k/uL RBC 4.72 (3.80-5.40) m/uL Hgb 14.5 (11.4-16.0) gm/dL Hct 42.0 (34.0-46.0) % MCV 89.0 (80.0-100.0) fL MCH 30.7 (25.0-35.0) pg MCHC 34.5 (31.0-37.0) g/dL RDW 13.4 (11.5-15.5) % Plt Count 207 (150-450) k/uL MPV 6.6 Neutrophils % 73 % Lymphocytes % 19 % Monocytes % 4 % Eosinophils % 2 % Basophils % 1 % Neutrophils # 7.0 (1.3-7.7) k/uL Lymphocytes # 1.8 (1.0-4.8) k/uL Monocytes # 0.4 (0-1.0) k/uL Eosinophils # 0.2 (0-0.7) k/uL Basophils # 0.1 (0-0.2) k/uL Sodium 136 L (137-145) mmol/L Potassium 3.8 (3.5-5.1) mmol/L Chloride 102 (98-107) mmol/L Carbon Dioxide 25 (22-30) mmol/L Anion Gap 9 mmol/L BUN 13 (7-17) mg/dL Creatinine 0.71 (0.52-1.04) mg/dL Est GFR (CKD-EPI)AfAm >90 (>60 ml/min/1.73 sqM) Est GFR (CKD-EPI)NonAf >90 (>60 ml/min/1.73 sqM) Glucose 111 H (74-99) mg/dL Calcium 9.6 (8.4-10.2) mg/dL Total Bilirubin 0.6 (0.2-1.3) mg/dL AST 20 (14-36) U/L ALT 25 (4-34) U/L Alkaline Phosphatase 68 (38-126) U/L Total Protein 7.5 (6.3-8.2) g/dL Albumin 4.6 (3.5-5.0) g/dL Amylase 52 (30-110) U/L Lipase 129 (23-300) U/L - Radiology Data Radiology results: report reviewed (Computed tomography scan abdomen pelvis shows no acute process.) Disposition Clinical Impression: Abdominal pain Disposition: HOME SELF-CARE Condition: Stable Instructions (If sedation given, give patient instructions): Abdominal Pain (ED) Additional Instructions: Please follow-up with primary care physician in the next couple of days for recheck. Also follow-up with surgeon. Return for increased pain, vomiting, fevers, worsening or changing symptoms or other concerns. Is patient prescribed a controlled substance at d/c from ED?: No Referrals: Nixon Jha MD [REFERRING] - 1-2 days Time of Disposition: 08:46
[2020-04-03 07:37] LABS: Basophils # (A) 0.1 k/uL (0-0.2); Basophils % (A) 1 %; Eosinophils # (A) 0.2 k/uL (0-0.7); Eosinophils % (A) 2 %; HGB 14.5 gm/dL (11.4-16.0); Lymphocytes # (A) 1.8 k/uL (1.0-4.8); Lymphocytes % (A) 19 %; MCH 30.7 pg (25.0-35.0); MCHC 34.5 g/dL (31.0-37.0); Mean Platelet Volume 6.6; Monocytes # (A) 0.4 k/uL (0-1.0); Monocytes % (A) 4 %; Neutrophils % (A) 73 %; Platelet Count 207 k/uL (150-450); RBC 4.72 m/uL (3.80-5.40); RDW 13.4 % (11.5-15.5); WBC 9.6 k/uL (3.8-10.6)
[2020-04-03 07:58] LABS: ALT 25 U/L (4-34); AST 20 U/L (14-36); African American GFR (CKD) >90 (>60 ml/min/1.73 sqM); Albumin 4.6 g/dL (3.5-5.0); Alkaline Phosphatase 68 U/L (38-126); Amylase 52 U/L (30-110); Anion Gap 9 mmol/L; Blood Urea Nitrogen 13 mg/dL (7-17); Calcium 9.6 mg/dL (8.4-10.2); Carbon Dioxide 25 mmol/L (22-30); Chloride 102 mmol/L (98-107); Glucose 111 mg/dL (74-99); Lipase 129 U/L (23-300); Non-African American GFR(CKD) >90 (>60 ml/min/1.73 sqM); Potassium 3.8 mmol/L (3.5-5.1); Sodium 136 mmol/L (137-145); Total Bilirubin 0.6 mg/dL (0.2-1.3); Total Protein 7.5 g/dL (6.3-8.2)
--- NOTE | 2020-04-03 08:34 | CT ---
EXAMINATION TYPE: CT abdomen pelvis w con DATE OF EXAM: 04/03/2020 HISTORY: Mid upper abdominal pain, history of hernia CT DLP: 2417.9mGycm Automated Exposure Control for Dose Reduction was Utilized. CONTRAST: CT scan of the abdomen and pelvis is performed with oral and with IV Contrast, patient injected with 100 mL of Isovue 300. COMPARISON: CT abdomen and pelvis December 27, 2019 and older studies. FINDINGS: LUNG BASES: No significant abnormality is appreciated. LIVER/GB: Cholecystectomy clips are redemonstrated. Liver demonstrates diffuse fatty infiltration. PANCREAS: No significant abnormality is seen. SPLEEN: No significant abnormality is seen. ADRENALS: No significant abnormality is seen. KIDNEYS: Symmetrical medullary uptake and excretion without concerning mass or hydronephrosis seen bi laterally. BOWEL: Oral contrast does not reach past the distal jejunal or proximal ileal loops. No suspicious sm all large bowel dilatation is present. Normal-appearing appendix from the cecum in the right lower qu adrant. UTERUS/ADNEXA: Anteverted uterus. LYMPH NODES: No greater than 1cm abdominal or pelvic lymph nodes are appreciated. OSSEOUS STRUCTURES: No significant abnormality is seen. OTHER: Stable small to moderate size fat-containing umbilical hernia axial image 58. No ventral wall hernia. IMPRESSION: No significant new or acute finding is seen to account for patient's clinical symptoms.
== END 2020-04-03 08:48 | disposition home or self-care (01) ==
LOC: EC 06:58
DX: R10.13 Epigastric pain (principal); J45.909 Unspecified asthma, uncomplicated; Z79.51 Long term (current) use of inhaled steroids; Z88.0 Allergy status to penicillin; Z88.2 Allergy status to sulfonamides; Z91.013 Allergy to seafood; Z90.49 Acquired absence of other specified parts of digestive tract; Z98.890 Other specified postprocedural states; Z98.51 Tubal ligation status
CPT/HCPCS: 36415; 80053; 82150; 83690; 85025; 74177; 99284; 96374; 96361; Q9967

== ENCOUNTER → 2020-06-12 | Outpatient (CLI) | payer MEDICAID ==
[2020-06-12 14:07] VITALS: BP 149/93; PULSE 75; TEMP 98.5; BMI 42.0
--- NOTE | 2020-06-12 14:15 | P.HPBAR ---
Bariatric H&P - History & Physicial H&P Date: 06/12/20 History & Physicial: Visit/CC: initial clinic visit Patient initial contact: Initial weight: Initial weight in pounds: Height: 5 ft 3.5 in Initial BMI: Last weight: Current weight: 109.316 kg Current weight in pounds: 241.00 Current BMI: 42.0 [place] body weight (based on NIH guidelines): 53.297 kg Excess body weight loss: The patient is a 30 year-old F who presents for Bariatric Assessment. A 30-year-old female known to our service. 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 She has been considering sleeve gastrectomy for the last several years. Patient suffers from PCL S, gestational diabetes, borderline hypertension, asthma, mild reflux. Patient has low vitamin D and has been on supplementation for years. No tobacco use. No history of DVT or dysphagia. Patient with some periumbilical discomfort and had a CAT scan showing a umbilical hernia recently. History of laparoscopic cholecystectomy and C- section. Review of Systems The patient denies any acute changes in vision or hearing, no dysphagia or odynophagia, no chest pain or shortness of breath, no dysuria or hematuria, no headache, no runny nose, no rectal bleeding or melena, no unexplained weight loss Past Medical History Past Medical History: Asthma Additional Past Medical History / Comment(s): migraines, varicose veins, asthma with sinus infections, History of Any Multi-Drug Resistant Organisms: None Reported Past Surgical History: Section, Cholecystectomy, Tubal Ligation, Uterine Ablation Additional Past Surgical History / Comment(s): D&C, Spinal tap 03/08/18 Past Anesthesia/Blood Transfusion Reactions: Previous Problems w/ Anesthesia, Motion Sickness, Postoperative Nausea & Vomiting (PONV) Additional Past Anesthesia/Blood Transfusion Reaction / Comm: "hard to wake up" Past Psychological History: No Psychological Hx Reported Smoking Status: Never smoker Past Alcohol Use History: Occasional Past Drug Use History: None Reported - Past Family History Mother Family Medical History: No Reported History Surgical - Exam Vital Signs Temp Pulse BP 98.5 F 75 149/93 06/12/20 13:58 06/12/20 13:58 06/12/20 13:58 Physical exam: General: Well-developed, well-nourished HEENT: Normocephalic, sclerae nonicteric Abdomen: Nontender, nondistended, subtle fullness at umbilicus, fascial defect and hernia itself is not easily palpable Extremities: No edema Neuro: Alert and oriented Bariatric Assessment & Plan (1) Morbid obesity with BMI of 40.0-44.9, adult Narrative/Plan: 30-year-old female with morbid obesity and comorbidities. Surgical and nonsurgical options reviewed in detail. Patient is interested in sleeve gastrectomy. She does require 6 months otherwise weight loss. She started 1 month ago. Plan EGD in the next 4 months or so. Follow up in the bariatric center following a period Status: Acute Bariatric Checklist Checklist: Plan: Checklist: EGD: 1. Hiatal hernia: 2. H. Pylori: HgbA1c: Vitamin D: Smoking: Never smoker Primary care physician referral: Psychiatry clearance: Cardiology clearance: Sleep study: Diet journal: VTE risk score: VTE risk level: Rehab needs at discharge:
[2020-06-12 15:32] LABS: HCT 41.3 % (34.0-46.0); HGB 13.6 gm/dL (11.4-16.0); MCH 30.4 pg (25.0-35.0); MCHC 32.9 g/dL (31.0-37.0); MCV 92.2 fL (80.0-100.0); Mean Platelet Volume 7.1; Platelet Count 239 k/uL (150-450); RBC 4.48 m/uL (3.80-5.40); RDW 13.6 % (11.5-15.5); WBC 6.4 k/uL (3.8-10.6)
[2020-06-12 20:09] LABS: African American GFR (CKD) 113.1 (60.0-200.0); Albumin 4.8 g/dL (3.80-4.90); Albumin/Globulin Ratio 2.53 (1.60-3.17); Anion Gap 8.8 mmol/L (4.00-12.00); BUN/Creat Ratio 13.75 Ratio (12.00-20.00); Calcium 9.4 mg/dL (8.7-10.3); Carbon Dioxide 25.2 mmol/L (21.6-31.8); Globulin 1.9 g/dL (1.6-3.3); Non-African American GFR(CKD) 97.6 (60.0-200.0); Potassium 4.3 mmol/L (3.5-5.5); Total Bilirubin 0.4 mg/dL (0.2-1.2); Total Protein 6.7 g/dL (6.2-8.2)
[2020-06-12 20:58] LABS: Folate, Serum 11.8 ng/mL
[2020-06-12 21:44] LABS: Hemoglobin A1C 4.9 % (4.0-6.0)
== END | disposition home or self-care (01) ==
LOC: BARWHC3 12:43
PROVIDERS: ATTEND Surgery
DX: E66.01 Morbid (severe) obesity due to excess calories (principal); Z68.41 Body mass index [BMI] 40.0-44.9, adult; Z90.49 Acquired absence of other specified parts of digestive tract; Z98.890 Other specified postprocedural states
CPT/HCPCS: 80053; 82306; 82607; 82746; 83036; 83540; 84425; 85027; 99211

== ENCOUNTER → 2020-10-06 | Outpatient (CLI) | payer MEDICAID ==
[2020-10-06 09:25] VITALS: BMI 39.4
== END ==
LOC: BARWHC3 08:40
PROVIDERS: ATTEND Surgery
DX: E66.01 Morbid (severe) obesity due to excess calories (principal); Z71.3 Dietary counseling and surveillance; Z68.39 Body mass index [BMI] 39.0-39.9, adult; Z88.0 Allergy status to penicillin; Z88.2 Allergy status to sulfonamides; Z91.013 Allergy to seafood
CPT/HCPCS: 97804

== ENCOUNTER 2020-10-07 07:23 | Day surgery (SDC) | payer MEDICAID ==
[2020-10-03 15:27] VITALS: BMI 39.8
[~2020-10-07 07:23] MED LIST changes: +LACTATED RINGERS 1,000 ML IV SCH; +LIDOCAINE 1% (10MG/ML) FOR IV START INTRADERMA PRN; -SODIUM CHLORIDE 0.9% 500 ML 500 ML IV ONE; -SODIUM CHLORIDE 0.9% 500 ML 500 ML IV SCH
[2020-10-07 07:54] VITALS: RESP 16; TEMP 97.9
[2020-10-07] MEDS ORDERED: MIDAZOLAM 2 MG/2 ML VIAL ONE (08:01)
[2020-10-07] MEDS ORDERED: fentaNYL (PF) 50 MCG/ML 2 ML AMP ONE (08:01)
[2020-10-07] MEDS ORDERED: PROPOFOL 10 MG/ML 20 ML VIAL IV ONE (08:01)
--- NOTE | 2020-10-07 08:04 | P.GSHP ---
History of Present Illness H&P Date: 10/07/20 Chief Complaint: GERD 30-year-old female here today for upper endoscopy. Patient being evaluated for sleeve gastrectomy. Patient with mild reflux. No dysphagia. Past Medical History Past Medical History: Asthma, GERD/Reflux Additional Past Medical History / Comment(s): migraines, varicose veins, PRE DIABETIC PER PATIENT, UMBILICAL HERNIA History of Any Multi-Drug Resistant Organisms: None Reported Past Surgical History: Section, Cholecystectomy, Tubal Ligation, Uterine Ablation Additional Past Surgical History / Comment(s): D&C, Spinal tap 03/08/18 Past Anesthesia/Blood Transfusion Reactions: Previous Problems w/ Anesthesia, Motion Sickness, Postoperative Nausea & Vomiting (PONV) Additional Past Anesthesia/Blood Transfusion Reaction / Comment(s): "hard to wake up" "SEVERE NAUSEA AND VOMITING " Smoking Status: Never smoker - Past Family History Mother Family Medical History: No Reported History Medications and Allergies Home Medications Medication Instructions Recorded Confirmed Type Albuterol Inhaler [Ventolin Hfa 1 puff INHALATION RT-Q6H PRN 04/03/20 10/06/20 History Inhaler] Albuterol Nebulized [Ventolin 2.5 mg INHALATION RT-Q4H PRN 04/03/20 10/07/20 History Nebulized] Budesonide/Formoterol Fumarate 2 puff INHALATION RT-BID PRN 04/03/20 10/07/20 History [Symbicort 160-4.5 Mcg Inhaler] Montelukast [Singulair] 10 mg PO HS 04/03/20 10/07/20 History Biotin 5,000 mcg PO DAILY 06/12/20 10/06/20 History Multivitamin/Iron/Folic Acid 1 tab PO DAILY 06/12/20 10/06/20 History [Centrum Adults Tablet] Ergocalciferol [Vitamin D2 (1250 1,250 mcg PO WEEKLY 10/06/20 10/07/20 History Mcg = 44533 Iu)] Pnv No.95/Ferrous Fum/Folic AC 1 each PO DAILY 10/06/20 10/07/20 History [ Multivitamin Tablet] Allergies Allergy/AdvReac Type Severity Reaction Status Date / Time Penicillins Allergy Intermediate Rash/Hives Verified 04/03/20 08:13 Sulfa (Sulfonamide Allergy Swelling Verified 04/03/20 08:13 Antibiotics) shrimp Allergy Anaphylaxis Uncoded 10/03/20 14:53 Surgical - Exam Vital Signs Temp Pulse Resp BP Pulse Ox 97.9 F 77 16 114/58 98 10/07/20 07:52 10/07/20 07:52 10/07/20 07:52 10/07/20 07:52 10/07/20 07:52 Physical exam: General: Well-developed, well-nourished HEENT: Normocephalic, sclerae nonicteric Abdomen: Nontender, nondistended Extremities: No edema Neuro: Alert and oriented Assessment and Plan (1) GERD (gastroesophageal reflux disease) Narrative/Plan: Will proceed with upper endoscopy Current Visit: Yes Status: Acute Code(s): K21.9 - GASTRO-ESOPHAGEAL REFLUX DISEASE WITHOUT ESOPHAGITIS SNOMED Code(s): 210321221
--- NOTE | 2020-10-07 08:16 | P.PCN ---
Date of Procedure: 10/07/20 Procedure(s) Performed: Preoperative Dx: GERD, presurgical Postoperative Dx: Minimal Gastritis Procedure: EGD with Bx Anesthesia: Sedation Endoscopist: Dr. Thomason Specimens: Antrum Endoscopic Procedure: The patient was on the endoscopy table in the left decubitus position. The Olympus gastroscope was inserted into the oropharynx and passed under direct visualization to the region of the third portion of the duodenum. From that point the scope was slowly withdrawn inspecting all surfaces carefully. There were no neoplastic inflammatory or polypoid lesions throughout the duodenum. The pylorus was widely patent. The stomach was carefully inspected. There was minimal gastritis. A biopsy of the antrum took place to rule out H. pylori. Retroflexion revealed a normal hiatus. The esophagus was then carefully examined. There were no neoplastic inflammatory or polypoid lesions throughout the visualized esophagus. The patient was then taken to the recovery room in stable condition per anesthesia guidelines. Recommendations: Resume diet. Await biopsy results. Follow-up in bariatric Center to 3 weeks.
[2020-10-07 08:44] VITALS: BP 107/64; PULSE 87
== END 2020-10-07 08:52 | disposition home or self-care (01) ==
LOC: ORWHC2ENDO 07:23
PROVIDERS: ATTEND Surgery
DX: Z01.818 Encounter for other preprocedural examination (principal); K21.9 Gastro-esophageal reflux disease without esophagitis; K29.50 Unspecified chronic gastritis without bleeding; J45.909 Unspecified asthma, uncomplicated; R73.03 Prediabetes; I83.90 Asymptomatic varicose veins of unspecified lower extremity; G43.909 Migraine, unspecified, not intractable, without status migrainosus; Z79.899 Other long term (current) drug therapy; Z88.2 Allergy status to sulfonamides; Z88.0 Allergy status to penicillin; Z91.013 Allergy to seafood
CPT/HCPCS: 81025; 88305; 43239; J2250; J3010; J2704

== ENCOUNTER → 2020-10-14 | Outpatient (CLI) | payer MEDICAID ==
[2020-10-14 15:39] VITALS: BP 130/85; PULSE 109; RESP 16; TEMP 97.7; BMI 39.6
--- NOTE | 2020-10-14 21:36 | P.BASOAP ---
Subjective Progress Note Date: 10/14/20 Principal diagnosis: Morbid obesity Patient returns to discuss upcoming sleeve gastrectomy. Underwent recent EGD showing minimal gastritis. She has lost 18 pounds since her first evaluation. Changes to her previous history and physical. Still with mild discomfort at the umbilical hernia site when she is very active. Objective - Vital Signs Vital signs: Vital Signs Temp 97.7 F 10/14/20 15:36 Pulse 109 H 10/14/20 15:36 Resp 16 10/14/20 15:36 BP 130/85 10/14/20 15:36 Pulse Ox Intake & Output 10/14/20 10/14/20 10/15/20 06:59 18:59 06:59 Weight 101.605 kg - Exam Abdomen: Soft, nontender, nondistended Assessment/Plan (1) Morbid obesity with BMI of 40.0-44.9, adult Narrative/Plan: Patient remains interested in sleeve gastrectomy. Surgical risks and weight loss expectations reviewed in detail. Reviewed the surgical consent form. Well proceed with sleeve gastrectomy in the near future. Plan: Date: 10/14/20 Initial Weight: 109.543 kg Initial BMI: 42.7 Current Weight: 101.605 kg Current BMI: 39.6 Type of Surgery: Total Volume in Band: Previous Volume: Volume Removed: Volume Added: Band Size:
== END ==
LOC: BARWHC3 15:22
PROVIDERS: ATTEND Surgery
DX: E66.01 Morbid (severe) obesity due to excess calories (principal); Z68.39 Body mass index [BMI] 39.0-39.9, adult; Z88.0 Allergy status to penicillin; Z88.2 Allergy status to sulfonamides; Z91.013 Allergy to seafood
CPT/HCPCS: 99211

== ENCOUNTER → 2020-12-02 | Outpatient (CLI) | payer MEDICAID ==
[2020-12-02 12:48] LABS: Basophils # (A) 0.1 k/uL (0-0.2); Basophils % (A) 1 %; Eosinophils # (A) 0.2 k/uL (0-0.7); Eosinophils % (A) 3 %; HCT 44.2 % (34.0-46.0); HGB 14.9 gm/dL (11.4-16.0); Lymphocytes # (A) 1.6 k/uL (1.0-4.8); Lymphocytes % (A) 23 %; MCHC 33.7 g/dL (31.0-37.0); MCV 88.9 fL (80.0-100.0); Mean Platelet Volume 7.2; Monocytes # (A) 0.3 k/uL (0-1.0); Monocytes % (A) 4 %; Neutrophils # (A) 4.6 k/uL (1.3-7.7); Neutrophils % (A) 67 %; Platelet Count 249 k/uL (150-450); RBC 4.97 m/uL (3.80-5.40); WBC 6.8 k/uL (3.8-10.6)
[2020-12-02 12:56] LABS: ALT 25 U/L (4-34); AST 21 U/L (14-36); African American GFR (CKD) >90 (>60 ml/min/1.73 sqM); Albumin 4.7 g/dL (3.5-5.0); Alkaline Phosphatase 64 U/L (38-126); Anion Gap 10 mmol/L; Blood Urea Nitrogen 19 mg/dL (7-17); Carbon Dioxide 25 mmol/L (22-30); Chloride 104 mmol/L (98-107); Glucose 95 mg/dL (74-99); Non-African American GFR(CKD) >90 (>60 ml/min/1.73 sqM); Potassium 4.7 mmol/L (3.5-5.1); Sodium 139 mmol/L (137-145); Total Bilirubin 0.3 mg/dL (0.2-1.3); Total Protein 7.4 g/dL (6.3-8.2)
== END | disposition home or self-care (01) ==
LOC: LABPAT 11:37
PROVIDERS: ATTEND Surgery
DX: Z01.812 Encounter for preprocedural laboratory examination (principal)
CPT/HCPCS: 36415; 80053; 85025

== ENCOUNTER 2020-12-08 07:42 | Inpatient (IN) | payer MEDICAID ==
[~2020-12-08 07:42] MED LIST changes: +ACETAMINOPHEN TAB 500 MG TAB PO PRN; +DEXAMETHASONE SOD PHOSPHATE 4 MG/ML 1 ML VIAL IV ONE; +ENOXAPARIN 40 MG/0.4 ML SYRINGE SQ PRN; +HYDROmorphone 0.5 MG/0.5 ML SYRINGE IVP PRN; -LACTATED RINGERS 1,000 ML IV SCH; +MIDAZOLAM 2 MG/2 ML VIAL IV PRN; +ONDANSETRON 4 MG/2 ML VIAL IVP ONE; +ONDANSETRON 4 MG/2 ML VIAL IVP PRN
[2020-12-08 08:22] LABS: Glucose,Whole Blood 94 mg/dL (75-99)
[2020-12-08] MEDS: LACTATED RINGERS 1,000 ML IV SCH (08:27)
--- NOTE | 2020-12-08 09:26 | P.GSHP ---
History of Present Illness H&P Date: 12/08/20 Chief Complaint: Morbid obesity 30-year-old female known to our service. Patient was initially evaluated for surgical weight loss in June. BMI 42 at that time. Patient is interested in sleeve gastrectomy. 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 She is not interested in gastric bypass. Patient suffers from PCOS, gestational diabetes, borderline hypertension, asthma, mild reflux. Recent EGD showed minimal gastritis. Patient with known umbilical hernia. No history of DVT or dysphagia. No tobacco use. 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 but wasnt' stroke per pt., varicose veins, PCOS, insulin resistance, had gestational diabetes w/pregnancies but not considered diabetic per pt., UMBILICAL HERNIA History of Any Multi-Drug Resistant Organisms: None Reported Past Surgical History: Section, Cholecystectomy, Tubal Ligation, Uterine Ablation Additional Past Surgical History / Comment(s): D&C, Spinal tap 03/08/18 Past Anesthesia/Blood Transfusion Reactions: Previous Problems w/ Anesthesia, Motion Sickness, Postoperative Nausea & Vomiting (PONV) Additional Past Anesthesia/Blood Transfusion Reaction / Comment(s): "hard to wake up" "SEVERE NAUSEA AND VOMITING " Smoking Status: Never smoker - Past Family History Mother Family Medical History: No Reported History Medications and Allergies Home Medications Medication Instructions Recorded Confirmed Type Albuterol Inhaler [Ventolin Hfa 1 puff INHALATION RT-Q6H PRN 04/03/20 12/08/20 History Inhaler] Albuterol Nebulized [Ventolin 2.5 mg INHALATION RT-Q4H PRN 04/03/20 12/08/20 History Nebulized] Budesonide/Formoterol Fumarate 2 puff INHALATION RT-BID PRN 04/03/20 12/08/20 History [Symbicort 160-4.5 Mcg Inhaler] Montelukast [Singulair] 10 mg PO HS 04/03/20 12/08/20 History Multivitamin/Iron/Folic Acid 1 tab PO DAILY 06/12/20 12/08/20 History [Centrum Adults Tablet] Ergocalciferol [Vitamin D2 (1250 1,250 mcg PO WEEKLY 10/06/20 12/08/20 History Mcg = 32954 Iu)] Pnv No.95/Ferrous Fum/Folic AC 1 each PO DAILY 10/06/20 12/08/20 History [ Multivitamin Tablet] Allergies Allergy/AdvReac Type Severity Reaction Status Date / Time Penicillins Allergy Intermediate Rash/Hives Verified 12/08/20 08:13 Sulfa (Sulfonamide Allergy Swelling Verified 12/08/20 08:13 Antibiotics) shrimp Allergy Anaphylaxis Uncoded 12/08/20 08:13 Surgical - Exam Vital Signs Temp Pulse Resp BP Pulse Ox 97.4 F L 77 16 110/61 96 12/08/20 08:06 12/08/20 08:06 12/08/20 08:06 12/08/20 08:06 12/08/20 08:06 Physical exam: General: Well-developed, well-nourished HEENT: Normocephalic, sclerae nonicteric Abdomen: Nontender, nondistended Extremities: No edema Neuro: Alert and oriented Assessment and Plan (1) Morbid obesity Narrative/Plan: Will proceed with laparoscopic, possible open sleeve gastrectomy at this time. The risks of bleeding, infection, stenosis, stricture, leak, abscess, fistula formation, peritonitis, poor weight loss, reflux, vomiting, conversion to an open procedure, aborting sleeve gastrectomy, IA, PE, DVT, and were discussed. The patient understands and wishes to proceed. Current Visit: Yes Status: Acute Code(s): E66.01 - MORBID (SEVERE) OBESITY DUE TO EXCESS CALORIES SNOMED Code(s): 442226760
[2020-12-08] MEDS ORDERED: PROPOFOL 10 MG/ML 20 ML VIAL IV ONE (09:41)
[2020-12-08] MEDS ORDERED: fentaNYL (PF) 50 MCG/ML 2 ML AMP ONE (09:41)
[2020-12-08] MEDS ORDERED: MIDAZOLAM 2 MG/2 ML VIAL ONE (09:41)
[2020-12-08] MEDS ORDERED: GLYCOPYRROLATE 0.2 MG/ML 2 ML VIAL ONE (09:41)
[2020-12-08] MEDS ORDERED: SUCCINYLCHOLINE CHLORIDE 100 MG/5 ML SYR IV ONE (09:41)
[2020-12-08] MEDS ORDERED: NEOSTIGMINE 1 MG/ML 10 ML VIAL ONE (09:41)
[2020-12-08] MEDS ORDERED: ROCURONIUM 10 MG/ML (5 ML VIAL) IV ONE (09:41)
[2020-12-08] MEDS ORDERED: LIDOCAINE 1% INJ 10MG/ML (20 ML MDV) ONE (09:41)
[2020-12-08] MEDS ORDERED: BUPIVACAINE (PF) 0.25% 30 ML VIAL SQ ONE ×2 (10:09)
[2020-12-08] MEDS ORDERED: METHYLENE BLUE 3 MG in DEXTROSE 5% IN WATER 500 ML IRRIGATION ONE ×2 (10:12)
[2020-12-08] MEDS ORDERED: LACTATED RINGERS 1,000 ML IV ONE (10:46)
[2020-12-08] MEDS ORDERED: NALOXONE 0.4 MG/ML 1 ML VIAL IV PRN (11:35)
[2020-12-08] MEDS ORDERED: HYDROmorphone 1 MG/ML 1 ML SYRINGE IVP PRN (11:35)
[2020-12-08] MEDS ORDERED: diphenhydrAMINE 50 MG/ML 1 ML VIAL IVP PRN (11:35)
--- NOTE | 2020-12-08 11:39 | P.OP ---
Date of Procedure: 12/08/20 Procedure(s) Performed: PREOPERATIVE DIAGNOSIS: Morbid obesity, GERD, asthma, borderline hypertension POSTOPERATIVE DIAGNOSIS: Same PROCEDURE: Laparoscopic sleeve gastrectomy SURGEON: Katelin EBL: Minimal ANESTHESIA: General COMPLICATIONS: None OPERATIVE PROCEDURE: Patient was placed in the operating table in the supine position. She was placed under general anesthesia at that time. The abdomen was prepped and draped in sterile fashion after the patient was placed in lithotomy. A 5 mm optical trocar was used to enter the abdominal cavity in the left upper quadrant. Insufflation took place to 15 millimeters mercury. An additional right subxiphoid 5 mm trocar was then placed under direct visualiza tion and then removed. 2 additional 5 mm trochars were placed in the right upper quadrant and left upper quadrant under direct visualization and a 15 mm trocar in the supraumbilical location. The liver was retracted using a medium Jes liver retractor through the right subxiphoid trocar site. The hiatus was inspected. The patient had no visible hiatal hernia At that point I moved to the mid aspect of the greater curvature the stomach. The short gastric vasculature was divided using a LigaSure device proximally. I then switched and divided the short gastrics distally to a 3-4 cm from the pylorus. The dissection took place up to the left diaphragmatic crura at that point. The posterior short gastrics were likewise divided using the LigaSure device. Once the stomach was fully mobilized the blunt tipped 40-Romanian bougie dilator was advanced into the stomach and advanced all the way to the prepyloric location. A black echelon 60 stapler with echelon Endopath staple line reinforcement was utilized and fired tangentially across the antrum taking care to avoid narrowing at the incisura angularis. Subsequent firings of the green echelon 60 staplers with echelon Endopath staple line reinforcement took place proximally staying on the outer edge of our dilator. The oral gastric tube was reinserted. The stomach was insufflated with approximately 100 mL of methylene blue. No evidence of leak or obstruction was seen. There were 3-4 small areas along the staple line that were oozing. These were controlled using a 12 mm clipper. Tisseel fibrin glue was used along the length of the staple line. The stomach remnant was removed from the 15 mm trocar site without difficulty. The fascia at the 15 more site was closed using interrupted 0 Vicryl sutures with the laparoscopic suture passer and Malik Lee technique. The insufflation was evacuated. The skin at all 5 incisions were closed using 4-0 Monocryl sutures. Skin glue was then applied. DISPOSITION: Stable to recovery room
[2020-12-08] MEDS: ONDANSETRON 4 MG/2 ML VIAL IVP PRN ×2 (12:14→17:00)
[2020-12-08] MEDS ORDERED: METOCLOPRAMIDE 5 MG/ML 2 ML VIAL ONE (12:26)
[2020-12-08] MEDS ORDERED: METOCLOPRAMIDE 5 MG/ML 2 ML VIAL IVP ONE (12:29)
[2020-12-08] MEDS ORDERED: diphenhydrAMINE 50 MG/ML 1 ML VIAL IVP ONE (12:36)
[2020-12-08] MEDS: ACETAMINOPHEN IV (For NPO) 1,000 MG in EMPTY BAG 1 BAG IVPB SCH ×4 (14:01→23:12)
[2020-12-08] MEDS: PANTOPRAZOLE 40 MG/10 ML VIAL IV SCH (14:34)
[2020-12-08] MEDS: ALBUTEROL NEBULIZED 2.5 MG/3 ML INHALATION SCH ×3 (14:34→21:29)
[2020-12-08] MEDS: 0.9% NACL WITH KCL 20 MEQ/L 1,000 ML IV SCH ×3 (14:34→22:32)
[2020-12-08] MEDS: SIMETHICONE 40 MG/0.6 ML DROPS 2,000 MG/30 ML BOTTLE PO PRN ×2 (15:37→22:36)
[2020-12-08] MEDS ORDERED: SYMBICORT 160-4.5 MCG INHALER INHALATION PRN (16:27)
[2020-12-08] MEDS ORDERED: ALBUTEROL NEBULIZED 2.5 MG/3 ML INHALATION PRN (16:27)
--- NOTE | 2020-12-08 17:55 | P.CONS ---
History of Present Illness - Reason for Consult Perioperative complication management - History of Present Illness Patient is a pleasant 30-year-old female is admitted for laparoscopic sleeve gastrectomy patient successfully underwent surgery of the patient is quite nauseous patient is still having pain receiving Dilaudid for that patient received Zofran. Patient will be started on Compazine, we'll also obtain EKG to assess for any acute prolongation considering that the patient is receiving both Zofran and Dilaudid. REVIEW OF SYSTEMS: CONSTITUTIONAL: No fever, no malaise, no fatigue. HEENT: No recent visual problems or hearing problems. Denied any sore throat. CARDIOVASCULAR: No chest pain, orthopnea, PND, no palpitations, no syncope. PULMONARY: No shortness of breath, no cough, no hemoptysis. GASTROINTESTINAL: As mentioned in HPI NEUROLOGICAL: No headaches, no weakness, no numbness. HEMATOLOGICAL: Denies any bleeding or petechiae. GENITOURINARY: Denies any burning micturition, frequency, or urgency. MUSCULOSKELETAL/RHEUMATOLOGICAL: Denies any joint pain, swelling, or any muscle pain. ENDOCRINE: Denies any polyuria or polydipsia. The rest of the 14-point review of systems is negative. PHYSICAL EXAMINATION: GENERAL: The patient is alert and oriented x3, not in any acute distress. Well developed, well nourished. HEENT: Pupils are round and equally reacting to light. EOMI. No scleral icterus. No conjunctival pallor. Normocephalic, atraumatic. No pharyngeal erythema. No thyromegaly. CARDIOVASCULAR: S1 and S2 present. No murmurs, rubs, or gallops. PULMONARY: Chest is clear to auscultation, no wheezing or crackles. ABDOMEN: Soft, some tenderness in the surgical site areas nondistended, sluggish bowel sounds. No palpable organomegaly. MUSCULOSKELETAL: No joint swelling or deformity. EXTREMITIES: No cyanosis, clubbing, or pedal edema. NEUROLOGICAL: Gross neurological examination did not reveal any focal deficits. SKIN: No rashes. Assessment and plan -Laparoscopic sleeve gastrectomy: Patient is quite nauseous at this time we will add Compazine, check EKG continue with Zofran -Asthma without any acute exacerbation -gastroesophageal reflux disease and patient is on Protonix, simethicone DVT prophylaxis: Patient is on Lovenox 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 but wasnt' stroke per pt., varicose veins, PCOS, insulin resistance, had gestational diabetes w/pregnancies but not considered diabetic per pt., UMBILICAL HERNIA History of Any Multi-Drug Resistant Organisms: None Reported Past Surgical History: Section, Cholecystectomy, Tubal Ligation, Uterine Ablation Additional Past Surgical History / Comment(s): D&C, Spinal tap 03/08/18, laprascopic gastric sleeve. Past Anesthesia/Blood Transfusion Reactions: Previous Problems w/ Anesthesia, Motion Sickness, Postoperative Nausea & Vomiting (PONV) Additional Past Anesthesia/Blood Transfusion Reaction / Comm: "hard to wake up" "SEVERE NAUSEA AND VOMITING " Past Psychological History: No Psychological Hx Reported Smoking Status: Never smoker Past Alcohol Use History: Occasional Past Drug Use History: None Reported - Past Family History Mother Family Medical History: No Reported History Medications and Allergies Home Medications Medication Instructions Recorded Confirmed Type Albuterol Inhaler [Ventolin Hfa 1 puff INHALATION RT-Q6H PRN 04/03/20 12/08/20 History Inhaler] Albuterol Nebulized [Ventolin 2.5 mg INHALATION RT-Q4H PRN 04/03/20 12/08/20 History Nebulized] Budesonide/Formoterol Fumarate 2 puff INHALATION RT-BID PRN 04/03/20 12/08/20 History [Symbicort 160-4.5 Mcg Inhaler] Montelukast [Singulair] 10 mg PO HS 04/03/20 12/08/20 History Multivitamin/Iron/Folic Acid 1 tab PO DAILY 06/12/20 12/08/20 History [Centrum Adults Tablet] Ergocalciferol [Vitamin D2 (1250 1,250 mcg PO WEEKLY 10/06/20 12/08/20 History Mcg = 79432 Iu)] Pnv No.95/Ferrous Fum/Folic AC 1 each PO DAILY 10/06/20 12/08/20 History [ Multivitamin Tablet] Allergies Allergy/AdvReac Type Severity Reaction Status Date / Time Penicillins Allergy Intermediate Rash/Hives Verified 12/08/20 08:13 Sulfa (Sulfonamide Allergy Swelling Verified 12/08/20 08:13 Antibiotics) shrimp Allergy Anaphylaxis Uncoded 12/08/20 08:13 Physical Exam Vitals: Vital Signs Temp Pulse Pulse Resp BP BP Pulse Ox 12/08/20 16:55 96 12/08/20 15:05 72 123/73 93 L 12/08/20 14:50 72 124/76 94 L 12/08/20 14:35 75 128/77 90 L 12/08/20 14:20 97.7 F 62 15 126/77 94 L 12/08/20 13:45 69 16 136/78 93 L 12/08/20 13:30 71 16 128/69 91 L 12/08/20 13:15 68 16 123/66 93 L 12/08/20 13:00 72 16 136/68 97 12/08/20 12:50 70 16 135/76 97 12/08/20 12:40 88 16 119/69 97 12/08/20 12:25 71 16 144/81 97 12/08/20 12:10 81 16 143/79 97 12/08/20 11:54 75 16 139/76 95 12/08/20 11:39 97.7 F 94 14 133/78 98 12/08/20 08:06 97.4 F L 77 16 110/61 96 Intake and Output 12/08/20 12/08/20 12/08/20 06:59 14:59 22:59 Intake Total 1950 Output Total 15 Balance 1935 Intake: IV 1950 Output: Estimated Blood Loss 15 Other: # Voids 1 Weight 99.6 kg
[2020-12-08] MEDS: PROCHLORPERAZINE INJ 10 MG/2 ML VIAL IVP PRN (19:30)
[2020-12-08] MEDS: HYOSCYAMINE ORAL DROPS 1.875 MG/15 ML BOTTLE PO PRN (22:35)
[2020-12-08] MEDS: ENOXAPARIN 40 MG/0.4 ML SYRINGE SQ SCH (23:12)
[2020-12-09] MEDS: PROCHLORPERAZINE INJ 10 MG/2 ML VIAL IVP PRN ×2 (05:01→11:32)
[2020-12-09] MEDS: HYOSCYAMINE ORAL DROPS 1.875 MG/15 ML BOTTLE PO PRN ×2 (05:05→23:54)
[2020-12-09] MEDS: SIMETHICONE 40 MG/0.6 ML DROPS 2,000 MG/30 ML BOTTLE PO PRN ×3 (05:05→17:31)
[2020-12-09] MEDS: LACTATED RINGERS 1,000 ML IV SCH (05:41)
[2020-12-09] MEDS: ACETAMINOPHEN IV (For NPO) 1,000 MG in EMPTY BAG 1 BAG IVPB SCH ×4 (05:41→23:56)
[2020-12-09] MEDS: 0.9% NACL WITH KCL 20 MEQ/L 1,000 ML IV SCH (05:41)
[2020-12-09] MEDS: ALBUTEROL NEBULIZED 2.5 MG/3 ML INHALATION SCH ×4 (08:50→21:31)
[2020-12-09] MEDS: ENOXAPARIN 40 MG/0.4 ML SYRINGE SQ SCH ×2 (09:07→23:49)
[2020-12-09] MEDS: PANTOPRAZOLE 40 MG/10 ML VIAL IV SCH (09:07)
[2020-12-09] MEDS: ONDANSETRON 4 MG/2 ML VIAL IVP PRN ×2 (09:21→17:31)
[2020-12-09] MEDS: 1: MVI, ADULT NO.4 WITH VIT K 10 ML, THIAMINE 100 MG, FOLIC ACID 1 MG, POTASSIUM CHLORID IV SCH ×12 (10:35→18:12)
[2020-12-09 11:06] LABS: Basophils # (A) 0.02 X 10*3/uL (0.00-0.10); Basophils % (A) 0.2 %; Eosinophils # (A) 0.01 X 10*3/uL (0.04-0.35); Eosinophils % (A) 0.1 %; HCT 41.3 % (37.2-46.3); HGB 13.4 g/dL (12.0-15.0); Lymphocytes # (A) 0.97 X 10*3/uL (0.90-5.00); Lymphocytes % (A) 7.6 %; MCH 29.6 pg (27.0-32.0); MCHC 32.4 g/dL (32.0-37.0); MCV 91.2 fL (80.0-97.0); Mean Platelet Volume 9.8 fL (9.5-12.2); Monocytes # (A) 0.64 X 10*3/uL (0.20-1.00); Neutrophils # (A) 11.04 X 10*3/uL (1.80-7.70); Neutrophils % (A) 86.7 %; Platelet Count 250 X 10*3/uL (140-440); RBC 4.53 X 10*6/uL (4.10-5.20); RDW 13.8 % (11.5-14.5); WBC 12.73 X 10*3/uL (4.50-10.00)
[2020-12-09 14:04] LABS: African American GFR (CKD) 139.8 (60.0-200.0); Anion Gap 12.9 mmol/L (4.00-12.00); Carbon Dioxide 20.1 mmol/L (21.6-31.8); Magnesium 2.5 mg/dL (1.5-2.4); Non-African American GFR(CKD) 120.6 (60.0-200.0); Phosphorus 2.2 mg/dL (2.4-5.1); Potassium 4.4 mmol/L (3.5-5.5)
--- NOTE | 2020-12-09 14:22 | FL ---
EXAMINATION TYPE: FL UGI DATE OF EXAM: 12/09/2020 COMPARISON: NONE HISTORY: Postop bariatric surgery TECHNIQUE: A single contrast UGI study is performed. A total of 16 seconds of fluoroscopic time was utilized during procedure and 6 images obtained. FINDINGS: Contrast was swallowed without difficulty and passed into the esophagus without delay. Mild mucosal i rregularity at the level of the surgical site correlate clinically. No diagnostic evidence of extrava sation. There is moderate delay at the level of the GE junction. Contrast eventually seen to pass int o the stomach and portions of the proximal duodenum. IMPRESSION: 1. Moderate delay at the GE junction as discussed above. No diagnostic evidence of extravasation. See above.
[2020-12-09] MEDS ORDERED: DEXAMETHASONE SOD PHOSPHATE 4 MG/ML 1 ML VIAL IV PRN (14:34)
--- NOTE | 2020-12-09 14:37 | P.PN ---
Subjective Progress Note Date: 12/09/20 Principal diagnosis: Morbid obesity Patient currently mild pressure discomfort. Says it similar to last night. She was nauseated however that is improved. Upper GI shows mild obstruction. Films reviewed with radiologist. No leak is seen. Slight outpouching at the angle of Hiss noted and within normal limits. White blood cell count 12. No tachycardia. Objective - Vital Signs Vital signs: Vital Signs Temp 98.8 F 12/09/20 07:50 Pulse 64 12/09/20 07:50 Resp 18 12/09/20 07:50 BP 143/71 12/09/20 07:50 Pulse Ox 96 12/09/20 07:50 Intake & Output 12/08/20 12/09/20 12/09/20 18:59 06:59 18:59 Intake Total 1950 1100 Output Total 15 1100 Balance 193 0 Weight 99.6 kg Intake: IV 1950 Intake, IV Titration 1100 Amount ACETAMINOPHEN IV (For NPO 100 ) 1,000 mg In Empty Bag 1 bag @ 400 mls/hr IVPB Q6HR [facility] Rx#:[id number] ceFAZolin 2 gm In Sodium 1000 Chloride 0.9% 50 ml @ 100 mls/hr IVPB ONCE PRN Rx# :[id number] Output: Urine 1100 Estimated Blood Loss 15 Other: Voiding Method Toilet # Voids 1 2 - Exam Abdomen: Soft, nondistended, mild tenderness, incisions clean and dry - Labs CBC & Chem 7: 12/09/20 07:07 12/09/20 07:07 Labs: Abnormal Lab Results - Last 24 Hours (Table) 12/09/20 12/09/20 Range/Units 07:07 07:07 WBC 12.73 H (4.50-10.00) X 10*3/uL Immature Gran # 0.05 H (0.00-0.04) X 10*3/uL Neutrophils # 11.04 H (1.80-7.70) X 10*3/uL Eosinophils # 0.01 L (0.04-0.35) X 10*3/uL Carbon Dioxide 20.1 L (21.6-31.8) mmol/L Anion Gap 12.90 H (4.00-12.00) mmol/L BUN 7.0 L (9.0-27.0) mg/dL Phosphorus 2.2 L (2.4-5.1) mg/dL Magnesium 2.5 H (1.5-2.4) mg/dL Assessment and Plan (1) Morbid obesity Narrative/Plan: Patient with mild edema along the sleeve. Add dose of Decadron at this time. We'll also add Toradol for pain control. Ambulate. Continue sips of liquids. Current Visit: Yes Status: Acute Code(s): E66.01 - MORBID (SEVERE) OBESITY DUE TO EXCESS CALORIES SNOMED Code(s): 675393400
--- NOTE | 2020-12-09 14:48 | P.PN ---
Subjective Progress Note Date: 12/09/20 Patient is a pleasant 30-year-old female is admitted for laparoscopic sleeve gastrectomy patient successfully underwent surgery of the patient is quite nauseous patient is still having pain receiving Dilaudid for that patient received Zofran. Patient will be started on Compazine, we'll also obtain EKG to assess for any acute prolongation considering that the patient is receiving both Zofran and Dilaudid. 12/09/2020 Pt is evaluated at the bedside post op day #1 lap sleeve gastrectomy. Patient is pending results of her upper GI series for advancement to bariatric clr diet. Pt reports nausea, she is receiving zofran in addition to compazine. Patient denies passing gas at the time of my examination. Patient denies cough, chest pain, SOB. She is also complaining of some abdominal discomfort, she is receiving IV diluadid and toradol for pain management. Patient was also started on decadron today for nausea and vomiting as well. Continue to ambulate, encourage IS. REVIEW OF SYSTEMS: CONSTITUTIONAL: No fever, no malaise, no fatigue. HEENT: No recent visual problems or hearing problems. Denied any sore throat. CARDIOVASCULAR: No chest pain, orthopnea, PND, no palpitations, no syncope. PULMONARY: No shortness of breath, no cough, no hemoptysis. GASTROINTESTINAL: Reports nausea, Denies vomiting, Reports some abdominal pain, Denies passing flatus HEMATOLOGICAL: Denies any bleeding or petechiae. GENITOURINARY: Denies any burning micturition, frequency, or urgency. MUSCULOSKELETAL/RHEUMATOLOGICAL: Denies any joint pain, swelling, or any muscle pain. ENDOCRINE: Denies any polyuria or polydipsia. PHYSICAL EXAMINATION: GENERAL: The patient is alert and oriented x3, not in any acute distress. Well developed, well nourished. HEENT: Pupils are round and equally reacting to light. EOMI. No scleral icterus. No conjunctival pallor. Normocephalic, atraumatic. No pharyngeal erythema. No thyromegaly. CARDIOVASCULAR: S1 and S2 present. No murmurs, rubs, or gallops. PULMONARY: Chest is clear to auscultation, no wheezing or crackles. ABDOMEN: Soft, some tenderness in the surgical site areas nondistended, sluggish bowel sounds. No palpable organomegaly. MUSCULOSKELETAL: No joint swelling or deformity. EXTREMITIES: No cyanosis, clubbing, or pedal edema. NEUROLOGICAL: Gross neurological examination did not reveal any focal deficits. SKIN: No rashes. Assessment and plan -Laparoscopic sleeve gastrectomy: Patient is quite nauseous at this time we will add Compazine, and zofran. EKG completed, QT interval WNL. -Asthma without any acute exacerbation -gastroesophageal reflux disease and patient is on Protonix, simethicone DVT prophylaxis: Patient is on Lovenox GI Prophylaxis: Protonix Continue to encourage ambulation, continue to encourage IS. Continue with current diet recommendations via surgical services. Thank you for this consultation. We will follow along with patient. Objective - Vital Signs Vital signs: Vital Signs Temp 98.8 F 12/09/20 07:50 Pulse 64 12/09/20 07:50 Resp 18 12/09/20 07:50 BP 143/71 12/09/20 07:50 Pulse Ox 96 12/09/20 07:50 Intake & Output 12/08/20 12/09/20 12/09/20 18:59 06:59 18:59 Intake Total 1951 1100 Output Total 15 1100 Balance 1936 0 Weight 99.6 kg Intake: IV 1950 Intake, IV Titration 1100 Amount ACETAMINOPHEN IV (For NPO 100 ) 1,000 mg In Empty Bag 1 bag @ 400 mls/hr IVPB Q6HR [facility] Rx#:[id number] ceFAZolin 2 gm In Sodium 1000 Chloride 0.9% 50 ml @ 100 mls/hr IVPB ONCE PRN Rx# :[id number] Output: Urine 1100 Estimated Blood Loss 15 Other: Voiding Method Toilet # Voids 1 2 - Labs CBC & Chem 7: 12/09/20 07:07 12/09/20 07:07 Labs: Abnormal Lab Results - Last 24 Hours (Table) 12/09/20 12/09/20 Range/Units 07:07 07:07 WBC 12.73 H (4.50-10.00) X 10*3/uL Immature Gran # 0.05 H (0.00-0.04) X 10*3/uL Neutrophils # 11.04 H (1.80-7.70) X 10*3/uL Eosinophils # 0.01 L (0.04-0.35) X 10*3/uL Carbon Dioxide 20.1 L (21.6-31.8) mmol/L Anion Gap 12.90 H (4.00-12.00) mmol/L BUN 7.0 L (9.0-27.0) mg/dL Phosphorus 2.2 L (2.4-5.1) mg/dL Magnesium 2.5 H (1.5-2.4) mg/dL Assessment and Plan Time with Patient: Greater than 30
[2020-12-09] MEDS: KETOROLAC 15 MG/ML 1 ML VIAL IVP SCH ×3 (15:19→23:48)
[2020-12-10] MEDS: 1: MVI, ADULT NO.4 WITH VIT K 10 ML, THIAMINE 100 MG, FOLIC ACID 1 MG, POTASSIUM CHLORID IV SCH ×12 (04:05→14:44)
[2020-12-10] MEDS: ACETAMINOPHEN IV (For NPO) 1,000 MG in EMPTY BAG 1 BAG IVPB SCH ×2 (04:06→14:44)
[2020-12-10] MEDS: LACTATED RINGERS 1,000 ML IV SCH (04:06)
[2020-12-10] MEDS: ALBUTEROL NEBULIZED 2.5 MG/3 ML INHALATION SCH ×2 (07:24→11:04)
[2020-12-10] MEDS: PANTOPRAZOLE 40 MG/10 ML VIAL IV SCH (07:51)
[2020-12-10] MEDS: ENOXAPARIN 40 MG/0.4 ML SYRINGE SQ SCH (07:51)
[2020-12-10] MEDS ORDERED: bisacodyL 5 MG TABLET.DR PO PRN (08:00)
[2020-12-10 09:04] VITALS: RESP 16
[2020-12-10] MEDS: KETOROLAC 15 MG/ML 1 ML VIAL IVP SCH ×2 (11:07→14:43)
[2020-12-10 11:20] LABS: Basophils # (A) 0.02 X 10*3/uL (0.00-0.10); Basophils % (A) 0.2 %; Eosinophils # (A) 0 X 10*3/uL (0.04-0.35); Eosinophils % (A) 0 %; HCT 39.8 % (37.2-46.3); HGB 12.4 g/dL (12.0-15.0); Lymphocytes # (A) 1.49 X 10*3/uL (0.90-5.00); MCH 28.8 pg (27.0-32.0); MCHC 31.2 g/dL (32.0-37.0); MCV 92.3 fL (80.0-97.0); Monocytes # (A) 0.54 X 10*3/uL (0.20-1.00); Monocytes % (A) 6.2 %; Neutrophils # (A) 6.65 X 10*3/uL (1.80-7.70); Neutrophils % (A) 76.1 %; Platelet Count 212 X 10*3/uL (140-440); RBC 4.31 X 10*6/uL (4.10-5.20); RDW 13.9 % (11.5-14.5); WBC 8.74 X 10*3/uL (4.50-10.00)
[2020-12-10 11:35] LABS: African American GFR (CKD) 139.8 (60.0-200.0); Anion Gap 7.7 mmol/L (4.00-12.00); Calcium 8.8 mg/dL (8.7-10.3); Carbon Dioxide 26.3 mmol/L (21.6-31.8); Non-African American GFR(CKD) 120.6 (60.0-200.0); Potassium 4.7 mmol/L (3.5-5.5)
[2020-12-10] MEDS ORDERED: ACETAMINOPHEN TAB 325 MG TAB PO PRN (12:35)
[2020-12-10 13:36] VITALS: BMI 38.9
--- NOTE | 2020-12-10 14:55 | P.PN ---
Subjective Progress Note Date: 12/10/20 Patient is a pleasant 30-year-old female is admitted for laparoscopic sleeve gastrectomy patient successfully underwent surgery of the patient is quite nauseous patient is still having pain receiving Dilaudid for that patient received Zofran. Patient will be started on Compazine, we'll also obtain EKG to assess for any acute prolongation considering that the patient is receiving both Zofran and Dilaudid. 12/09/2020 Pt is evaluated at the bedside post op day #1 lap sleeve gastrectomy. Patient is pending results of her upper GI series for advancement to bariatric clr diet. Pt reports nausea, she is receiving zofran in addition to compazine. Patient denies passing gas at the time of my examination. Patient denies cough, chest pain, SOB. She is also complaining of some abdominal discomfort, she is receiving IV diluadid and toradol for pain management. Patient was also started on decadron today for nausea and vomiting as well. Continue to ambulate, encourage IS. 12/10/2020 Patient is evaluated stable in the chair today she is postop day #2 lap sleeve gastrectomy. Patient has not taken a medication for nausea since yesterday. She states that she is feeling much better today, is hoping to be discharged home. She was advanced to a bariatric clear liquid diet and is tolerating well. Patient denies any nausea, vomiting, abdominal cramping. She states that she is passing gas. Patient's been up ambulating and is urinating without difficulty. Patient continues to use her incentive spirometer. She denies chest pain, cough, shortness of breath, denies wheezing. Vital signs are stabl e, temp 98.3, heart rate sinus bradycardia 50, blood pressure 152/88, 98% on room air. REVIEW OF SYSTEMS: CONSTITUTIONAL: No fever, no malaise, no fatigue. HEENT: No recent visual problems or hearing problems. Denied any sore throat. CARDIOVASCULAR: No chest pain, orthopnea, PND, no palpitations, no syncope. PULMONARY: No shortness of breath, no cough, no hemoptysis. GASTROINTESTINAL: Reports nausea, Denies vomiting, Reports some abdominal pain, Denies passing flatus HEMATOLOGICAL: Denies any bleeding or petechiae. GENITOURINARY: Denies any burning micturition, frequency, or urgency. MUSCULOSKELETAL/RHEUMATOLOGICAL: Denies any joint pain, swelling, or any muscle pain. ENDOCRINE: Denies any polyuria or polydipsia. PHYSICAL EXAMINATION: GENERAL: The patient is alert and oriented x3, not in any acute distress. Well developed, well nourished. HEENT: Pupils are round and equally reacting to light. EOMI. No scleral icterus. No conjunctival pallor. Normocephalic, atraumatic. No pharyngeal erythema. No thyromegaly. CARDIOVASCULAR: S1 and S2 present. No murmurs, rubs, or gallops. PULMONARY: Chest is clear to auscultation, no wheezing or crackles. ABDOMEN: Soft, some tenderness in the surgical site areas nondistended, sluggish bowel sounds. No palpable organomegaly. MUSCULOSKELETAL: No joint swelling or deformity. EXTREMITIES: No cyanosis, clubbing, or pedal edema. NEUROLOGICAL: Gross neurological examination did not reveal any focal deficits. SKIN: No rashes. Assessment and plan -Laparoscopic sleeve gastrectomy: Mild pain, to be expected. Patient denies any nausea, vomiting today. It is much improved. -Asthma without any acute exacerbation -gastroesophageal reflux disease and patient is on Protonix, simethicone DVT prophylaxis: Patient is on Lovenox GI Prophylaxis: Protonix Continue to encourage ambulation, continue to encourage IS. Continue with cur rent diet recommendations via surgical services. Thank you for this consultation. We will follow along with patient. Objective - Vital Signs Vital signs: Vital Signs Temp 98.3 F 12/10/20 08:00 Pulse 50 L 12/10/20 08:00 Resp 16 12/10/20 08:00 BP 152/88 12/10/20 08:00 Pulse Ox 98 12/10/20 08:00 Intake & Output 12/09/20 12/10/20 12/10/20 18:59 06:59 18:59 Intake Total 2521.2 Output Total 200 Balance 2321.2 Intake: Intake, IV Titration 2221.2 Amount 0.9% NaCl with KCl 20 Meq 1200 /l 1,000 ml @ 100 mls/hr IV .BY DURATION [facility] Rx#: [id number] Mvi, Adult No.4 with Vit 1021.2 K 10 ml Thiamine 100 mg Folic Acid 1 mg Potassium Chloride 20 meq In Sodium Chloride 0.9% 1, 000 ml @ 100 mls/hr IV . BY DURATION [facility] Rx#: [id number] Oral 300 Output: Urine 200 Other: Voiding Method Toilet Toilet # Voids 4 4 - Labs CBC & Chem 7: 12/10/20 07:05 12/10/20 07:05 Labs: Abnormal Lab Results - Last 24 Hours (Table) 12/09/20 12/10/20 Range/Units 07:07 07:05 MCHC 31.2 L (32.0-37.0) g/dL Eosinophils # 0 L (0.04-0.35) X 10*3/uL Carbon Dioxide 20.1 L (21.6-31.8) mmol/L Anion Gap 12.90 H (4.00-12.00) mmol/L BUN 7.0 L (9.0-27.0) mg/dL Phosphorus 2.2 L (2.4-5.1) mg/dL Magnesium 2.5 H (1.5-2.4) mg/dL Assessment and Plan Time with Patient: Greater than 30
[2020-12-10 15:00] VITALS: BP 125/73; PULSE 51; TEMP 98.7
--- NOTE | 2020-12-10 15:11 | P.DS ---
<Mikki Coombs - Last Filed: 12/10/20 15:10> Providers Expected date of discharge: 12/10/20 Hospital Course: Discharge diagnosis 1. Morbid obesity status post laparoscopic sleeve gastrectomy 2. GERD 3. Asthma 4. Borderline hypertension Hospital course This is a 30-year-old female with a known history of morbid obesity. She is status post laparoscopic sleeve gastrectomy. She tolerated surgery well. She reports that her pain is controlled. Upper GI did show moderate delay at the GE junction. No diagnostic evidence of extravasation. Patient is tolerating the bariatric clear liquid diet. She is having flatus. She is up and ambulating. She's afebrile. She is stable for discharge. Please refer to chart for any further details. Physician Reinsurance Clerk note has been reviewed by physician. Signing provider agrees with the documented findings, assessment, and plan of care. Patient Condition at Discharge: Stable Plan - Discharge Summary Discharge Rx Participant: No New Discharge Prescriptions: New bisacodyL [Dulcolax] 5 mg PO DAILY PRN #10 tablet. PRN Reason: Constipation Simethicone 40 mg/0.6 ml Drops [Mylicon Drops] 40 mg PO P[facility]S PRN #30 ml PRN Reason: Gas Omeprazole [PriLOSEC] 40 mg PO DAILY #30 capsule. Ondansetron Odt [Zofran Odt] 4 mg PO Q8HR PRN #9 tab PRN Reason: Nausea Acetaminophen Oral Susp [Tylenol] 1,000 mg PO Q6H #400 ml traMADol HCL [Ultram] 50 mg PO Q6HR PRN 2 Days #6 tab PRN Reason: Pain Continue Montelukast [Singulair] 10 mg PO HS Budesonide/Formoterol Fumarate [Symbicort 160-4.5 Mcg Inhaler] 2 puff INHALATION RT-BID PRN PRN Reason: Shortness Of Breath Or Wheezing Albuterol Inhaler [Ventolin Hfa Inhaler] 1 puff INHALATION RT-Q6H PRN PRN Reason: Shortness Of Breath Albuterol Nebulized [Ventolin Nebulized] 2.5 mg INHALATION RT-Q4H PRN PRN Reason: Dyspnea Multivitamin/Iron/Folic Acid [Centrum Adults Tablet] 1 tab PO DAILY Ergocalciferol [Vitamin D2 (1250 Mcg = 30412 Iu)] 1,250 mcg PO WEEKLY Pnv No.95/Ferrous Fum/Folic AC [ Multivitamin Tablet] 1 each PO DAILY Discharge Medication List Albuterol Inhaler [Ventolin Hfa Inhaler] 1 puff INHALATION RT-Q6H PRN 04/03/20 [History] Albuterol Nebulized [Ventolin Nebulized] 2.5 mg INHALATION RT-Q4H PRN 04/03/20 [History] Budesonide/Formoterol Fumarate [Symbicort 160-4.5 Mcg Inhaler] 2 puff INHALATION RT-BID PRN 04/03/20 [History] Montelukast [Singulair] 10 mg PO HS 04/03/20 [History] Multivitamin/Iron/Folic Acid [Centrum Adults Tablet] 1 tab PO DAILY 06/12/20 [History] Ergocalciferol [Vitamin D2 (1250 Mcg = 56384 Iu)] 1,250 mcg PO WEEKLY 10/06/20 [History] Pnv No.95/Ferrous Fum/Folic AC [ Multivitamin Tablet] 1 each PO DAILY 10/06/20 [History] Acetaminophen Oral Susp [Tylenol] 1,000 mg PO Q6H #400 ml 12/10/20 [Rx] Omeprazole [PriLOSEC] 40 mg PO DAILY #30 capsule. 12/10/20 [Rx] Ondansetron Odt [Zofran Odt] 4 mg PO Q8HR PRN #9 tab 12/10/20 [Rx] Simethicone 40 mg/0.6 ml Drops [Mylicon Drops] 40 mg PO PCHS PRN #30 ml 12/10/20 [Rx] bisacodyL [Dulcolax] 5 mg PO DAILY PRN #10 tablet. 12/10/20 [Rx] traMADol HCL [Ultram] 50 mg PO Q6HR PRN 2 Days #6 tab 12/10/20 [Rx] Follow up [facility]ment(s[facility] [place] [place] [facility] [place]/20 10:15 am (Please come to the Bariatric Center on the 3rd Floor [facility] for your Nurse Visit on 12/12/20 at 1015 am. ) Patient Instructions/Handouts: Nutrition after Bariatric Surgery (DC) Activity/Diet/Wound Care/Special Instructions: No driving while taking Ultram No lifting over 10 pounds You may shower. No soaking or tub baths for 2 weeks Very light activity until you are reevaluated at your follow up appointment with your surgeon No straws or carbonated beverages Cut or crush all pills to the size smaller than a TicTac Hold on taking all vitamins until seen by surgeon Discharge Disposition: HOME SELF-CARE <Yayo Thomason - Last Filed: 12/10/20 18:15> Providers Date of admission: 12/08/20 07:42 Attending physician: Yayo Thomason Consults: 12/08/20 11:39 Consult Physician Routine Consulting Provider: Lavonne Angeles Consult Reason/Comments: Medical management Do you want consulting provider notified?: Yes Primary care physician: Nxion Jha MD - Discharge Diagnosis(es) (1) Morbid obesity Status: Acute Hospital Course: As above. Patient doing well. Tolerating diet. May discharge. Follow-up one week.
== END 2020-12-10 16:02 | disposition home or self-care (01) | DRG 621 ==
LOC: 2ORMAIN 07:42 → 4SSUR 13:57
PROVIDERS: ADMIT Surgery; ATTEND Surgery
PROC: 0DB64Z3 Excision of Stomach, Percutaneous Endoscopic Approach, Vertical (ICD-10-PCS; principal; 2020-12-08 09:10)
DX: E66.01 Morbid (severe) obesity due to excess calories (principal); J45.909 Unspecified asthma, uncomplicated; E28.2 Polycystic ovarian syndrome; K21.9 Gastro-esophageal reflux disease without esophagitis; T75.3XXA Motion sickness, initial encounter; R03.0 Elevated blood-pressure reading, without diagnosis of hypertension; K42.9 Umbilical hernia without obstruction or gangrene; R11.2 Nausea with vomiting, unspecified; E88.81 Metabolic syndrome and other insulin resistance; G43.909 Migraine, unspecified, not intractable, without status migrainosus; I83.90 Asymptomatic varicose veins of unspecified lower extremity; Z68.38 Body mass index [BMI] 38.0-38.9, adult; Z79.01 Long term (current) use of anticoagulants; Z79.51 Long term (current) use of inhaled steroids; Z79.899 Other long term (current) drug therapy; Z86.73 Personal history of transient ischemic attack (TIA), and cerebral infarction without residual deficits; Z86.32 Personal history of gestational diabetes; Z90.49 Acquired absence of other specified parts of digestive tract; Z98.51 Tubal ligation status; Z88.0 Allergy status to penicillin; Z88.2 Allergy status to sulfonamides; Z91.013 Allergy to seafood
CPT/HCPCS: 74240; 80048; 80051; 81025; 82310; 82565; 83735; 84100; 84520; 85025; 88307; 93005; 94760

== ENCOUNTER → 2020-12-12 | Outpatient (CLI) | payer MEDICAID ==
[2020-12-12 11:13] VITALS: BP 120/82; PULSE 76; TEMP 98.1; BMI 38.0
== END ==
LOC: BARWHC3 10:15
PROVIDERS: ATTEND Surgery
DX: E66.01 Morbid (severe) obesity due to excess calories (principal); Z98.84 Bariatric surgery status; Z68.38 Body mass index [BMI] 38.0-38.9, adult; Z88.0 Allergy status to penicillin; Z88.2 Allergy status to sulfonamides
CPT/HCPCS: 99211

== ENCOUNTER → 2020-12-16 | Outpatient (CLI) | payer MEDICAID ==
[2020-12-16 13:43] VITALS: BP 111/74; PULSE 82; TEMP 98.2; BMI 37.0
--- NOTE | 2020-12-16 15:57 | P.BASOAP ---
Subjective Progress Note Date: 12/16/20 Principal diagnosis: Morbid obesity Patient returns 1 week after sleeve gastrectomy. Doing well at this time. Taking an excellent volume of liquids and protein. She has lost 6 pounds since last Tuesday. Still taking small amounts of liquids at that time. If she takes too large of a drink she feels some spasm. She says the symptoms are much improved. Remains on antiacids. No heartburn. No vomiting. Mild discomfort at her umbilical incision. Some bruising which is improving. No fevers. Objective - Vital Signs Vital signs: Vital Signs Temp 98.2 F 12/16/20 13:41 Pulse 82 12/16/20 13:41 Resp BP 111/74 12/16/20 13:41 Pulse Ox Intake & Output 12/15/20 12/16/20 12/16/20 18:59 06:59 18:59 Weight 94.801 kg - Exam Abdomen: Soft, nontender, nondistended, mild ecchymosis around the umbilicus, incisions clean and dry Assessment/Plan (1) Morbid obesity Narrative/Plan: Patient doing well postoperative. Continue full liquids. Continue increasing activities. May return to work 4 weeks after surgery. Return visit 2 weeks. Continue antiacids. Plan: Date: 12/16/20 Initial Weight: 109.543 kg Initial BMI: 42.7 Current Weight: 94.801 kg Current BMI: 37.0 Type of Surgery: Total Volume in Band: Previous Volume: Volume Removed: Volume Added: Band Size:
== END ==
LOC: BARWHC3 13:04
PROVIDERS: ATTEND Surgery
DX: E66.01 Morbid (severe) obesity due to excess calories (principal); Z68.37 Body mass index [BMI] 37.0-37.9, adult; Z88.0 Allergy status to penicillin; Z88.2 Allergy status to sulfonamides; Z91.013 Allergy to seafood; Z71.3 Dietary counseling and surveillance
CPT/HCPCS: 97803; 99211

== ENCOUNTER → 2021-01-06 | Outpatient (CLI) | payer MEDICAID ==
[2021-01-06 15:18] VITALS: BP 149/93; PULSE 79; RESP 16; TEMP 98.5; BMI 35.4
--- NOTE | 2021-01-06 16:57 | P.BASOAP ---
Subjective Progress Note Date: 01/06/21 Principal diagnosis: Morbid obesity Patient returns for recheck. She was last seen 1 month ago. Doing all right since last visit. She can only about 2 ounces of solid foods daily. Most of her diet has been liquid. She is getting enough liquids and protein however. Mild discomfort at the umbilicus when lifting. She is due for one month labs. She does need a refill on her omeprazole. Objective - Vital Signs Vital signs: Vital Signs Temp 98.5 F 01/06/21 15:15 Pulse 79 01/06/21 15:15 Resp 16 01/06/21 15:15 BP 149/93 01/06/21 15:15 Pulse Ox Intake & Output 01/05/21 01/06/21 01/06/21 18:59 06:59 18:59 Weight 90.718 kg - Exam Abdomen: Soft, nondistended, mild tenderness at umbilical hernia site Assessment/Plan (1) Morbid obesity Narrative/Plan: Patient overall doing better. She has had good weight loss. Continue gradually increasing solid food amounts. Continue cautiously increasing exercise and lifting. Continue antiacids. Follow-up one month. Check one month labs at this time. Plan: Date: 01/06/21 Initial Weight: 109.543 kg Initial BMI: 42.7 Current Weight: 90.718 kg Current BMI: 35.4 Type of Surgery: Total Volume in Band: Previous Volume: Volume Removed: Volume Added: Band Size:
== END ==
LOC: BARWHC3 14:20
PROVIDERS: ATTEND Surgery
DX: E66.01 Morbid (severe) obesity due to excess calories (principal); Z68.35 Body mass index [BMI] 35.0-35.9, adult; Z71.3 Dietary counseling and surveillance; Z88.0 Allergy status to penicillin; Z88.2 Allergy status to sulfonamides; Z91.013 Allergy to seafood
CPT/HCPCS: 97803; 99211

== ENCOUNTER → 2021-01-07 | Outpatient (CLI) | payer MEDICAID ==
[2021-01-07 16:10] LABS: HCT 42.3 % (37.2-46.3); HGB 13.6 g/dL (12.0-15.0); MCH 28.6 pg (27.0-32.0); MCHC 32.2 g/dL (32.0-37.0); MCV 88.9 fL (80.0-97.0); Mean Platelet Volume 11.3 fL (9.5-12.2); Platelet Count 164 X 10*3/uL (140-440); RBC 4.76 X 10*6/uL (4.10-5.20); RDW 14.3 % (11.5-14.5); WBC 4.15 X 10*3/uL (4.50-10.00)
[2021-01-07 20:49] LABS: Hemoglobin A1C 4.3 % (4.0-6.0)
[2021-01-07 21:29] LABS: African American GFR (CKD) 132.9 (60.0-200.0); Albumin 4.7 g/dL (3.80-4.90); Albumin/Globulin Ratio 2.04 (1.60-3.17); Anion Gap 11.4 mmol/L (4.00-12.00); BUN/Creat Ratio 14.29 Ratio (12.00-20.00); Calcium 9.3 mg/dL (8.7-10.3); Carbon Dioxide 22.6 mmol/L (21.6-31.8); Globulin 2.3 g/dL (1.6-3.3); Non-African American GFR(CKD) 114.6 (60.0-200.0); Total Bilirubin 0.5 mg/dL (0.3-1.2)
== END | disposition home or self-care (01) ==
LOC: LABWHC1 08:32
PROVIDERS: ATTEND Surgery
DX: E55.9 Vitamin D deficiency, unspecified (principal); K90.89 Other intestinal malabsorption
CPT/HCPCS: 36415; 80053; 82306; 82607; 82746; 83036; 83540; 84425; 85027

== ENCOUNTER → 2021-02-03 | Outpatient (CLI) | payer MEDICAID ==
--- NOTE | 2021-02-03 14:48 | P.BASOAP ---
Subjective Progress Note Date: 02/03/21 Principal diagnosis: Morbid obesity Patient returns for recheck. Doing relatively well since last visit 01/06. Her 1 month labs looked normal. She is taking omeprazole 20 mg once daily and is having breakthrough heartburn symptoms. Had been doing better when she was taking omeprazole 40 mg twice a day with Carafate. No vomiting. No abdominal pain. Objective - Exam Abdomen: Soft, nontender, nondistended Assessment/Plan (1) Morbid obesity Narrative/Plan: Patient doing well at this time. We will start taking omeprazole 20 mg twice a day. If that does not help she will resume her Carafate. Continue dietary and exercise regimen. Return visit 4-6 weeks. Plan: Date: Initial Weight: 109.543 kg Initial BMI: Current Weight: Current BMI: Type of Surgery: Total Volume in Band: Previous Volume: Volume Removed: Volume Added: Band Size:
[2021-02-03 14:59] VITALS: BP 123/84; PULSE 73; TEMP 98.1; BMI 33.1
== END ==
LOC: BARWHC3 14:22
PROVIDERS: ATTEND Surgery
DX: E66.01 Morbid (severe) obesity due to excess calories (principal); K21.9 Gastro-esophageal reflux disease without esophagitis; Z68.33 Body mass index [BMI] 33.0-33.9, adult; Z88.0 Allergy status to penicillin; Z88.2 Allergy status to sulfonamides; Z91.013 Allergy to seafood
CPT/HCPCS: 99211

== ENCOUNTER → 2021-02-12 | Outpatient (CLI) | payer MEDICAID ==
[2021-02-12 17:10] LABS: HCT 41.9 % (37.2-46.3); HGB 13.4 g/dL (12.0-15.0); MCH 29.3 pg (27.0-32.0); MCV 91.5 fL (80.0-97.0); Mean Platelet Volume 10.5 fL (9.5-12.2); Platelet Count 196 X 10*3/uL (140-440); RBC 4.58 X 10*6/uL (4.10-5.20); RDW 14.3 % (11.5-14.5); WBC 4.81 X 10*3/uL (4.50-10.00)
[2021-02-12 18:18] LABS: ALT 12 U/L (8-44); AST 15 U/L (13-35); African American GFR (CKD) 135.8 (60.0-200.0); Albumin 4.3 g/dL (3.8-4.9); Alkaline Phosphatase 70 U/L (41-126); BUN/Creat Ratio 11.05 Ratio (12.00-20.00); Blood Urea Nitrogen 7.2 mg/dL (9.0-27.0); Calcium 9.5 mg/dL (8.7-10.3); Carbon Dioxide 25.5 mmol/L (21.6-31.8); Chloride 106 mmol/L (96-109); Globulin 2.1 g/dL (1.6-3.3); Glucose 87 mg/dL (70-110); Iron 61 ug/dL (50-170); Non-African American GFR(CKD) 117.2 (60.0-200.0); Potassium 4.1 mmol/L (3.5-5.5); Sodium 143 mmol/L (135-145); Total Protein 6.4 g/dL (6.2-8.2)
[2021-02-12 19:13] LABS: Folate, Serum >20.00 ng/mL (4.40-31.00)
== END | disposition home or self-care (01) ==
LOC: LABWHC1 09:07
PROVIDERS: ATTEND Surgery
DX: E66.01 Morbid (severe) obesity due to excess calories (principal)
CPT/HCPCS: 36415; 80053; 82306; 82607; 82746; 83540; 84425; 85027

== ENCOUNTER → 2021-03-10 | Outpatient (CLI) | payer MEDICAID ==
--- NOTE | 2021-03-10 15:48 | P.BASOAP ---
Subjective Progress Note Date: 03/10/21 Principal diagnosis: Morbid obesity Patient returns for evaluation. Doing well since last visit. Taking omeprazole once daily and periodically will take a second dose after dinner if she has reflux. She has lost 13 pounds since her last visit. Labs were drawn last visit which showed a low vitamin D. She has increased her vitamin D to supplementation. No nausea or vomiting. No pain. Objective - Exam Abdomen: Soft, nontender, nondistended Assessment/Plan (1) Morbid obesity Narrative/Plan: Patient doing well at this time. Continue dietary and exercise regimen. Follow up 4-6 weeks and we'll check three-month labs at that time. Continue omeprazole 1-2 times daily. Plan: Date: Initial Weight: 109.543 kg Initial BMI: Current Weight: Current BMI: Type of Surgery: Total Volume in Band: Previous Volume: Volume Removed: Volume Added: Band Size:
[2021-03-10 15:52] VITALS: BP 158/89; PULSE 74; RESP 16; TEMP 98; BMI 30.8
== END ==
LOC: BARWHC3 15:13
PROVIDERS: ATTEND Surgery
DX: E66.01 Morbid (severe) obesity due to excess calories (principal); Z68.30 Body mass index [BMI] 30.0-30.9, adult; Z88.0 Allergy status to penicillin; Z88.2 Allergy status to sulfonamides; Z91.018 Allergy to other foods
CPT/HCPCS: 99211

== ENCOUNTER → 2021-04-21 | Outpatient (CLI) | payer MEDICAID ==
[2021-04-21 14:36] VITALS: BP 106/90; PULSE 94; TEMP 98; BMI 28.8
--- NOTE | 2021-04-21 14:39 | P.BASOAP ---
Subjective Progress Note Date: 04/21/21 Principal diagnosis: Morbid obesity Patient doing well today. Last seen 03/10. She says her heartburn went away and she stopped taking her antiacid medications. Unfortunately this morning she had an episode of vomiting when she woke up and thought it was related to reflux. She is now starting back on her antiacids. No pain. She has had some hair loss. Tolerating diet. Good weight loss. Objective - Vital Signs Vital signs: Vital Signs Temp 98 F 04/21/21 14:09 Pulse 94 04/21/21 14:09 Resp BP 106/90 04/21/21 14:09 Pulse Ox Intake & Output 04/20/21 04/21/21 04/21/21 18:59 06:59 18:59 Weight 73.936 kg - Exam Abdomen: Soft, nontender, nondistended Assessment/Plan (1) Morbid obesity Narrative/Plan: Patient doing well at this time. Excellent weight loss. Will resume her antiacid therapy. Check three-month labs at this time. Follow-up 1 month. Plan: Date: 04/21/21 Initial Weight: 109.543 kg Initial BMI: 42.7 Current Weight: 73.936 kg Current BMI: 28.8 Type of Surgery: Total Volume in Band: Previous Volume: Volume Removed: Volume Added: Band Size:
== END ==
LOC: BARWHC3 13:21
PROVIDERS: ATTEND Surgery
DX: E66.01 Morbid (severe) obesity due to excess calories (principal); Z71.3 Dietary counseling and surveillance; Z68.28 Body mass index [BMI] 28.0-28.9, adult; Z88.0 Allergy status to penicillin; Z88.2 Allergy status to sulfonamides; Z91.013 Allergy to seafood
CPT/HCPCS: 97803; 99211

== ENCOUNTER → 2021-05-08 | Outpatient (CLI) | payer MEDICAID ==
[2021-05-08 21:34] LABS: HCT 42.7 % (37.2-46.3); HGB 13.5 g/dL (12.0-15.0); MCH 29.7 pg (27.0-32.0); MCHC 31.6 g/dL (32.0-37.0); MCV 94.1 fL (80.0-97.0); Mean Platelet Volume 10.2 fL (9.5-12.2); Platelet Count 221 X 10*3/uL (140-440); RBC 4.54 X 10*6/uL (4.10-5.20); RDW 13.3 % (11.5-14.5); WBC 6.24 X 10*3/uL (4.50-10.00)
[2021-05-09 01:06] LABS: African American GFR (CKD) 134.3 (60.0-200.0); Albumin 4.5 g/dL (3.8-4.9); Albumin/Globulin Ratio 1.94 (1.60-3.17); Anion Gap 15.5 mmol/L (10.00-18.00); BUN/Creat Ratio 22.29 Ratio (12.00-20.00); Blood Urea Nitrogen 14.8 mg/dL (9.0-27.0); Calcium 9.6 mg/dL (8.7-10.3); Carbon Dioxide 23.3 mmol/L (20.0-27.5); Folate, Serum 13.1 ng/mL (4.40-31.00); Globulin 2.3 g/dL (1.6-3.3); Non-African American GFR(CKD) 115.8 (60.0-200.0); Potassium 4.5 mmol/L (3.5-5.5); Total Bilirubin 0.3 mg/dL (0.30-1.20); Total Protein 6.8 g/dL (6.2-8.2)
== END | disposition home or self-care (01) ==
LOC: LABWHC1 12:27
PROVIDERS: ATTEND Surgery
DX: E66.01 Morbid (severe) obesity due to excess calories (principal); E55.9 Vitamin D deficiency, unspecified; K90.89 Other intestinal malabsorption
CPT/HCPCS: 36415; 80053; 82306; 82607; 82746; 83540; 84425; 85027

== ENCOUNTER → 2021-06-09 | Outpatient (CLI) | payer MEDICAID ==
[2021-06-09 13:26] VITALS: BP 123/71; PULSE 72; RESP 16; TEMP 98.1; BMI 28.0
--- NOTE | 2021-06-09 13:44 | P.BASOAP ---
Subjective Progress Note Date: 06/09/21 Principal diagnosis: Morbid obesity Patient returns for reevaluation. Last seen approximately 6 weeks. No further vomiting. No heartburn. She has back off of her antiacids for 1.5 weeks again. No further hair loss. She has lost 5 pounds since her last visit. Her labs looked good. Objective - Vital Signs Vital signs: Vital Signs Temp 98.1 F 06/09/21 13:25 Pulse 72 06/09/21 13:25 Resp 16 06/09/21 13:25 BP 123/71 06/09/21 13:25 Pulse Ox Intake & Output 06/08/21 06/09/21 06/09/21 18:59 06:59 18:59 Weight 71.668 kg - Exam Abdomen: Soft, nontender, nondistended Assessment/Plan (1) Morbid obesity Narrative/Plan: Patient doing well at this time. Continue intermittent antiacid use. Follow-up 6 weeks. Check 6 month labs at that time. Plan: Date: 06/09/21 Initial Weight: 109.543 kg Initial BMI: 42.7 Current Weight: 71.668 kg Current BMI: 28.0 Type of Surgery: Vertical Sleeve Gastrectomy Total Volume in Band: Previous Volume: Volume Removed: Volume Added: Band Size:
== END ==
LOC: BARWHC3 13:13
PROVIDERS: ATTEND Surgery
DX: E66.01 Morbid (severe) obesity due to excess calories (principal); Z68.28 Body mass index [BMI] 28.0-28.9, adult; Z98.84 Bariatric surgery status; Z88.0 Allergy status to penicillin; Z88.2 Allergy status to sulfonamides; Z91.013 Allergy to seafood
CPT/HCPCS: 99211

== ENCOUNTER → 2021-07-21 | Outpatient (CLI) | payer MEDICAID ==
[2021-07-21 13:20] VITALS: BP 124/76; PULSE 66; TEMP 98; BMI 26.9
--- NOTE | 2021-07-21 13:27 | P.BASOAP ---
Subjective Progress Note Date: 07/21/21 Principal diagnosis: Morbid obesity Patient returns for 6 month recheck. Doing well since her last visit in June. She has lost 6 pounds. Not taking any antacids any longer. She had an episode of vomiting after taking many pills at one time. Otherwise doing well. Objective - Vital Signs Vital signs: Vital Signs Temp 98 F 07/21/21 13:17 Pulse 66 07/21/21 13:17 Resp BP 124/76 07/21/21 13:17 Pulse Ox Intake & Output 07/20/21 07/21/21 07/21/21 18:59 06:59 18:59 Weight 68.946 kg - Exam Abdomen: Soft, nontender, nondistended Assessment/Plan (1) Morbid obesity Narrative/Plan: 31-year-old female with morbid obesity. Patient doing well at this time. Check 6 month labs. Continue dietary and exercise regimen. Follow-up 6-8 weeks. Plan: Date: 07/21/21 Initial Weight: 109.543 kg Initial BMI: 42.7 Current Weight: 68.946 kg Current BMI: 26.9 Type of Surgery: Total Volume in Band: Previous Volume: Volume Removed: Volume Added: Band Size:
== END ==
LOC: BARWHC3 12:55
PROVIDERS: ATTEND Surgery
DX: E66.01 Morbid (severe) obesity due to excess calories (principal); Z68.26 Body mass index [BMI] 26.0-26.9, adult; Z88.0 Allergy status to penicillin; Z88.2 Allergy status to sulfonamides; Z91.013 Allergy to seafood
CPT/HCPCS: 99211

== ENCOUNTER → 2021-08-18 | Outpatient (CLI) | payer MEDICAID ==
[2021-08-18 19:22] LABS: HCT 43.3 % (37.2-46.3); HGB 13.8 g/dL (12.0-15.0); MCH 29.6 pg (27.0-32.0); MCHC 31.9 g/dL (32.0-37.0); MCV 92.7 fL (80.0-97.0); Mean Platelet Volume 10.3 fL (9.5-12.2); NRBC Per 100 WBC 0 /100 WBCS (0.0-0.0); Platelet Count 217 X 10*3/uL (140-440); RBC 4.67 X 10*6/uL (4.10-5.20); RDW 12.8 % (11.5-14.5); WBC 5.45 X 10*3/uL (4.50-10.00)
[2021-08-18 20:01] LABS: African American GFR (CKD) 138.8 (60.0-200.0); Albumin 4.5 g/dL (3.8-4.9); Albumin/Globulin Ratio 2.25 (1.60-3.17); Anion Gap 10.7 mmol/L (10.00-18.00); BUN/Creat Ratio 15.83 Ratio (12.00-20.00); Blood Urea Nitrogen 9.5 mg/dL (9.0-27.0); Calcium 9.3 mg/dL (8.7-10.3); Carbon Dioxide 25.3 mmol/L (20.0-27.5); Non-African American GFR(CKD) 119.8 (60.0-200.0); Potassium 4.5 mmol/L (3.5-5.5); Total Bilirubin 0.3 mg/dL (0.30-1.20); Total Protein 6.5 g/dL (6.2-8.2)
== END | disposition home or self-care (01) ==
LOC: LABWHC1 09:44
PROVIDERS: ATTEND Surgery
DX: E66.01 Morbid (severe) obesity due to excess calories (principal); K90.89 Other intestinal malabsorption; E55.9 Vitamin D deficiency, unspecified
CPT/HCPCS: 36415; 80053; 82306; 82607; 82746; 83540; 84425; 85027

== ENCOUNTER → 2021-12-08 | Outpatient (CLI) | payer MEDICAID ==
[2021-12-08 15:40] VITALS: BP 114/74; PULSE 73; RESP 16; TEMP 98.1; BMI 26.2
--- NOTE | 2021-12-08 16:59 | P.BASOAP ---
Subjective Progress Note Date: 12/08/21 Principal diagnosis: Morbid obesity Patient returns for recheck. Doing well since last visit on 09/22. Weight has stayed the same. She was down to 143. She is due for one year labs. No pain. Has had some heavier periods than she has had in the past. Objective - Vital Signs Vital signs: Vital Signs Temp 98.1 F 12/08/21 15:38 Pulse 73 12/08/21 15:38 Resp 16 12/08/21 15:38 BP 114/74 12/08/21 15:38 Pulse Ox FiO2 Intake & Output 12/07/21 12/08/21 12/08/21 18:59 06:59 18:59 Weight 67.132 kg - Exam Abdomen: Soft, nontender, nondistended Assessment/Plan (1) Morbid obesity Narrative/Plan: Patient doing well post sleeve gastrectomy. Continue dietary and neck she says regimen. Follow-up with gynecology regarding heavier periods. Check one year labs. Follow-up 6 months. Plan: Date: 12/08/21 Initial Weight: 109.543 kg Initial BMI: 42.7 Current Weight: 67.132 kg Current BMI: 26.2 Type of Surgery: Vertical Sleeve Gastrectomy Total Volume in Band: Previous Volume: Volume Removed: Volume Added: Band Size:
== END ==
LOC: BARWHC3 15:18
PROVIDERS: ATTEND Surgery
DX: E66.01 Morbid (severe) obesity due to excess calories (principal); Z98.84 Bariatric surgery status; Z68.26 Body mass index [BMI] 26.0-26.9, adult; Z88.0 Allergy status to penicillin; Z88.2 Allergy status to sulfonamides; Z91.013 Allergy to seafood
CPT/HCPCS: 99211

== ENCOUNTER → 2022-01-15 | Outpatient (CLI) | payer MEDICAID ==
[2022-01-15 14:48] LABS: HCT 42.9 % (37.2-46.3); MCH 29.7 pg (27.0-32.0); MCHC 32.6 g/dL (32.0-37.0); MCV 90.9 fL (80.0-97.0); Mean Platelet Volume 9.9 fL (9.5-12.2); NRBC Per 100 WBC 0 /100 WBCS (0.0-0.0); Platelet Count 188 X 10*3/uL (140-440); RBC 4.72 X 10*6/uL (4.10-5.20); RDW 12.1 % (11.5-14.5)
[2022-01-15 16:55] LABS: African American GFR (CKD) 120.6 (60.0-200.0); Albumin 4.6 g/dL (3.8-4.9); Albumin/Globulin Ratio 2.22 (1.60-3.17); Anion Gap 11.6 mmol/L (10.00-18.00); BUN/Creat Ratio 18.83 Ratio (12.00-20.00); Blood Urea Nitrogen 14.2 mg/dL (9.0-27.0); Calcium 9.6 mg/dL (8.7-10.3); Globulin 2.1 g/dL (1.6-3.3); Non-African American GFR(CKD) 104.1 (60.0-200.0); Potassium 4.6 mmol/L (3.5-5.5); Total Bilirubin 0.4 mg/dL (0.30-1.20); Total Protein 6.7 g/dL (6.2-8.2)
== END | disposition home or self-care (01) ==
LOC: LABWHC1 09:13
PROVIDERS: ATTEND Surgery
DX: E55.9 Vitamin D deficiency, unspecified (principal); E66.01 Morbid (severe) obesity due to excess calories; K90.89 Other intestinal malabsorption
CPT/HCPCS: 36415; 80053; 82306; 82607; 82746; 83540; 84425; 85027

== ENCOUNTER 2022-03-31 16:26 | Emergency (ER) | payer MEDICAID ==
[2022-03-31 16:59] VITALS: RESP 16
[2022-03-31 17:23] LABS: Basophils % (A) 1 %; Eosinophils # (A) 0.1 k/uL (0-0.7); Eosinophils % (A) 2 %; HGB 14.7 gm/dL (11.4-16.0); Lymphocytes # (A) 1.3 k/uL (1.0-4.8); Lymphocytes % (A) 14 %; MCH 30.8 pg (25.0-35.0); MCHC 34.3 g/dL (31.0-37.0); MCV 89.9 fL (80.0-100.0); Mean Platelet Volume 7.4; Monocytes # (A) 0.2 k/uL (0-1.0); Monocytes % (A) 3 %; Neutrophils # (A) 7.3 k/uL (1.3-7.7); Neutrophils % (A) 81 %; Platelet Count 197 k/uL (150-450); RBC 4.78 m/uL (3.80-5.40); RDW 12.5 % (11.5-15.5)
[2022-03-31 17:32] LABS: ALT 20 U/L (4-34); AST 21 U/L (14-36); African American GFR (CKD) >90 (>60 ml/min/1.73 sqM); Albumin 4.8 g/dL (3.5-5.0); Alkaline Phosphatase 54 U/L (38-126); Anion Gap 7 mmol/L; Blood Urea Nitrogen 23 mg/dL (7-17); Calcium 9.2 mg/dL (8.4-10.2); Carbon Dioxide 27 mmol/L (22-30); Chloride 104 mmol/L (98-107); Glucose 106 mg/dL (74-99); Magnesium 1.9 mg/dL (1.6-2.3); Non-African American GFR(CKD) >90 (>60 ml/min/1.73 sqM); Potassium 4.1 mmol/L (3.5-5.1); Sodium 138 mmol/L (137-145); Total Bilirubin 0.2 mg/dL (0.2-1.3)
[2022-03-31 17:35] LABS: INR 0.9 (<1.2); Partial Thromboplastin Time 26.1 sec (22.0-30.0)
--- NOTE | 2022-03-31 18:15 | XR ---
EXAMINATION TYPE: XR chest 2V DATE OF EXAM: 03/31/2022 6:03 PM COMPARISON: Chest radiographs from 03/15/2020 TECHNIQUE: XR chest 2V Frontal and lateral views of the chest. CLINICAL INDICATION:Female, 32 years old with history of Chest Pain; FINDINGS: Lungs/Pleura: There is no evidence of pleural effusion, focal consolidation, or pneumothorax. Pulmonary vascularity: Unremarkable. Heart/mediastinum: Cardiomediastinal silhouette is unremarkable. Musculoskeletal: No acute osseous pathology. IMPRESSION: No acute cardiopulmonary disease/process.
[2022-03-31] MEDS ORDERED: SODIUM CHLORIDE 0.9% 1,000 ML IV ONE (18:38)
--- NOTE | 2022-03-31 18:39 | ED ---
Chest Pain HPI - General Chief Complaint: Chest Pain Stated Complaint: SOB/ heart palp Time Seen by Provider: 03/31/22 18:26 Source: patient Mode of arrival: ambulatory Limitations: no limitations - History of Present Illness MD Complaint: chest pain Onset/Timin -: hour(s) Onset: during rest Pain Location: substernal Pain Radiation: none Severity: mild Quality: tightness Consistency: constant Improves With: nothing Worsens With: nothing Other Symptoms: palpitations Treatments Prior to Arrival: none - Related Data Home Medications Medication Instructions Recorded Confirmed Albuterol Inhaler [Ventolin Hfa 2 puff INHALATION RT-Q6H PRN 04/03/20 03/31/22 Inhaler] Budesonide/Formoterol Fumarate 2 puff INHALATION RT-BID PRN 04/03/20 03/31/22 [Symbicort 160-4.5 Mcg Inhaler] Calcium Citrate 250 mg PO BID 03/31/22 03/31/22 Cholecalciferol [Vitamin D3 (25 25 mcg PO DAILY 03/31/22 03/31/22 Mcg = 1000 Iu)] Multivitamins, Thera [Multivitamin 1 tab PO DAILY 03/31/22 03/31/22 (formulary)] Allergies Allergy/AdvReac Type Severity Reaction Status Date / Time Penicillins Allergy Intermediate Rash/Hives Verified 03/31/22 19:51 Sulfa (Sulfonamide Allergy Swelling Verified 03/31/22 19:51 Antibiotics) shrimp Allergy Anaphylaxis Uncoded 03/31/22 17:00 Review of Systems ROS Statement: Those systems with pertinent positive or pertinent negative responses have been documented in the HPI. ROS Other: All systems not noted in ROS Statement are negative. Constitutional: Denies: fever, chills Respiratory: Denies: cough, dyspnea Cardiovascular: Reports: chest pain. Denies: palpitations, dyspnea on exertion, orthopnea, edema, syncope Gastrointestinal: Denies: abdominal pain, nausea, vomiting Genitourinary: Denies: dysuria, hematuria Musculoskeletal: Denies: back pain Skin: Denies: rash Neurological: Denies: headache, weakness EKG Findings - EKG Results: EKG: interpreted by [facility], sinus rhythm (Rate 73 bpm), normal axis, normal ST/T - Blocks, [place], Hypertrophy, ST Abn: QRS axis and voltage: low voltage (<0.5 MV total QRS and <1.0 MV in each precordial lead) Past Medical History Past Medical History: Asthma, GERD/Reflux Additional Past Medical History / Comment(s): migraines, varicose veins, PRE DIABETIC PER PATIENT, UMBILICAL HERNIA History of Any Multi-Drug Resistant Organisms: None Reported Past Surgical History: Bariatric Surgery, Section, Cholecystectomy, Tubal Ligation, Uterine Ablation Additional Past Surgical History / Comment(s): D&C, Spinal tap 03/08/18, 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 Past Anesthesia/Blood Transfusion Reactions: Previous Problems w/ Anesthesia, Motion Sickness, Postoperative Nausea & Vomiting (PONV) Additional Past Anesthesia/Blood Transfusion Reaction / Comment(s): "hard to wake up" "SEVERE NAUSEA AND VOMITING " Past Psychological History: No Psychological Hx Reported Smoking Status: Never smoker Past Alcohol Use History: Occasional Past Drug Use History: None Reported - Past Family History Mother Family Medical History: No Reported History General Exam Limitations: no limitations General appearance: alert, in no apparent distress Head exam: Present: atraumatic, normocephalic Eye exam: Present: normal appearance. Absent: scleral icterus, conjunctival injection Respiratory exam: Present: wheezes (There is a trace of expiratory wheeze). Absent: respiratory distress, rales, rhonchi, stridor, chest wall tenderness, accessory muscle use Cardiovascular Exam: Present: regular rate, normal rhythm, normal heart sounds. Absent: systolic murmur, diastolic murmur, rubs, gallop GI/Abdominal exam: Present: soft. Absent: distended, tenderness, guarding, rebound, rigid, mass Extremities exam: Present: normal inspection, normal capillary refill. Absent: pedal edema, calf tenderness Back exam: Present: normal inspection. Absent: CVA tenderness (R), CVA tenderness (L) Neurological exam: Present: alert Skin exam: Present: warm, dry, intact, normal color. Absent: rash Course Vital Signs 03/31/22 03/31/22 16:55 19:51 Temperature 98.0 F 98.2 F Pulse Rate 85 75 Respiratory 16 16 Rate Blood Pressure 131/74 137/87 O2 Sat by Pulse 100 97 Oximetry Disposition Clinical Impression: Chest pain Disposition: HOME SELF-CARE Condition: Good Instructions (If sedation given, give patient instructions): Chest Pain (ED) Is patient prescribed a controlled substance at d/c from ED?: No Referrals: None,Stated [REFERRING] - 1-2 days
[2022-03-31] MEDS ORDERED: methylPREDNISolone SOD SUCCI 125 MG/2 ML VIAL IV STA (19:37)
[2022-03-31] MEDS ORDERED: predniSONE 20 MG TAB PO STA (19:43)
[2022-03-31 19:51] VITALS: BP 137/87; PULSE 75; TEMP 98.2
== END 2022-03-31 19:53 | disposition home or self-care (01) ==
LOC: EC 16:26
DX: R07.9 Chest pain, unspecified (principal); J45.909 Unspecified asthma, uncomplicated; Z88.0 Allergy status to penicillin; Z88.2 Allergy status to sulfonamides; Z91.013 Allergy to seafood
CPT/HCPCS: 36415; 93005; 85379; 80053; 83735; 84484; 85025; 85610; 85730; 71046; 99285; J7512

== ENCOUNTER → 2023-02-22 | Outpatient (CLI) | payer MEDICAID ==
[2023-02-22 16:00] VITALS: BP 115/77; PULSE 86; RESP 16; TEMP 97.8; BMI 27.8
--- NOTE | 2023-02-22 16:10 | P.BASOAP ---
Subjective Progress Note Date: 02/22/23 Principal diagnosis: Morbid obesity Patient returns for recheck. She was last seen in June. Doing well since then. She has gained 3 pounds. She did see gynecology regarding her menstrual bleeding. No further plans. No antiacids. Minimal and rare GERD symptoms. She is due for annual blood work. She still has a rash occasionally beneath her pannus. She is still considering tummy tuck. Objective - Vital Signs Vital signs: Vital Signs Temp 97.8 F 02/22/23 15:51 Pulse 86 02/22/23 15:51 Resp 16 02/22/23 15:51 BP 115/77 02/22/23 15:51 Pulse Ox FiO2 Intake & Output 02/21/23 02/22/23 02/22/23 18:59 06:59 18:59 Weight 71.214 kg - Exam Abdomen: Soft, nontender, nondistended Assessment/Plan (1) Morbid obesity Narrative/Plan: Patient doing well at this time. Continue dietary and exercise regimen. Check 2 year labs. Follow-up 1 year. Plan: Date: 02/22/23 Initial Weight: 109.543 kg Initial BMI: 42.7 Current Weight: 71.214 kg Current BMI: 27.8 Type of Surgery: Vertical Sleeve Gastrectomy Total Volume in Band: Previous Volume: Volume Removed: Volume Added: Band Size:
== END ==
LOC: BARWHC3 15:38
PROVIDERS: ATTEND Surgery
DX: E66.01 Morbid (severe) obesity due to excess calories (principal); K21.9 Gastro-esophageal reflux disease without esophagitis; H16.429 Pannus (corneal), unspecified eye; Z71.3 Dietary counseling and surveillance; Z68.27 Body mass index [BMI] 27.0-27.9, adult; Z88.2 Allergy status to sulfonamides; Z91.013 Allergy to seafood; Z88.0 Allergy status to penicillin
CPT/HCPCS: 99211

== ENCOUNTER 2023-11-09 14:50 | Emergency (ER) | payer MEDICAID ==
[2023-11-09 14:54] VITALS: RESP 16
[2023-11-09] MEDS: KETOROLAC 15 MG/ML 1 ML VIAL IM STA (15:32)
--- NOTE | 2023-11-09 15:32 | ED ---
General Adult HPI - General Chief complaint: ENT Stated complaint: R ear pain, nausea Source: patient, RN notes reviewed, old records reviewed Mode of arrival: ambulatory Limitations: no limitations - History of Present Illness Initial comments: 33-year-old female presenting with right ear pain. Patient has received oral antibiotics for right otitis media. She had initially thought her pain was attributed to dental infection but saw her dentist who took x-rays and states she does not have a current dental infection. The pain is into her right jaw. Did report fever and sore throat as well. - Related Data Home Medications Medication Instructions Recorded Confirmed Albuterol Inhaler [Ventolin Hfa 2 puff INHALATION RT-Q6H PRN 04/03/20 06/30/22 Inhaler] Budesonide/Formoterol Fumarate 2 puff INHALATION RT-BID PRN 04/03/20 06/30/22 [Symbicort 160-4.5 Mcg Inhaler] Calcium Citrate 250 mg PO BID 03/31/22 06/30/22 Cholecalciferol [Vitamin D3 (25 25 mcg PO DAILY 03/31/22 06/30/22 Mcg = 1000 Iu)] Multivitamins, Thera [Multivitamin 1 tab PO DAILY 03/31/22 06/30/22 (formulary)] Previous Rx's Medication Instructions Recorded HYDROcodone/APAP 5-325MG [[place] 1 tab PO Q6HR PRN #12 tab 11/09/23 5-325] Allergies Allergy/AdvReac Type Severity Reaction Status Date / Time Penicillins Allergy Intermediate Rash/Hives Verified 11/09/23 14:54 Sulfa (Sulfonamide Allergy Swelling Verified 11/09/23 14:54 Antibiotics) shrimp Allergy Anaphylaxis Uncoded 03/31/22 17:00 Review of Systems ROS Statement: Those systems with pertinent positive or pertinent negative responses have been documented in the HPI. ROS Other: All systems not noted in ROS Statement are negative. Past Medical History Past Medical History: Asthma, GERD/Reflux Additional Past Medical History / Comment(s): migraines, varicose veins, PRE DIABETIC PER PATIENT, UMBILICAL HERNIA History of Any Multi-Drug Resistant Organisms: None Reported Past Surgical History: Bariatric Surgery, Section, Cholecystectomy, Tubal Ligation, Uterine Ablation Additional Past Surgical History / Comment(s): D&C, Spinal tap 03/08/18, 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 Past Anesthesia/Blood Transfusion Reactions: Previous Problems w/ Anesthesia, M otion Sickness, Postoperative Nausea & Vomiting (PONV) Additional Past Anesthesia/Blood Transfusion Reaction / Comment(s): "hard to wake up" "SEVERE NAUSEA AND VOMITING " Past Psychological History: No Psychological Hx Reported Smoking Status: Never smoker Past Alcohol Use History: Occasional Past Drug Use History: None Reported - Past Family History Mother Family Medical History: No Reported History General Exam Limitations: no limitations General appearance: alert, in no apparent distress Head exam: Present: atraumatic, normocephalic Eye exam: Present: normal appearance, PERRL ENT exam: Present: other (pharyg erythema without tonsillar swelling or exudate, right tympanic membrane is within normal limits, no signs of infection. There is no inflammation of the external auditory canal. The mastoid is nontender and not erythematous) Course Vital Signs 11/09/23 14:52 Temperature 97.6 F Pulse Rate 82 Respiratory 16 Rate Blood Pressure 141/85 O2 Sat by Pulse 100 Oximetry Medical Decision Making - Medical Decision Making Was pt. sent in by a medical professional or institution (, PA, TEMPLATE INSPECTOR, urgent care, hospital, or fpc...) When possible be specific @ -No Did you speak to anyone other than the patient for history (EMS, parent, family, police, friend...)? What history was obtained from this source @ -No Did you review nursing and triage notes (agree or disagree)? Why? @ -I reviewed and agree with nursing and triage notes Were old charts reviewed (outside hosp., previous admission, EMS record, old EKG, old radiological studies, urgent care reports/EKG's, fpc records)? Report findings @ -No old charts were reviewed Differential Diagnosis otitis media, mastoiditis, otitis externa, dental pain, trigeminal neuralgia, pharyngitis, peritonsillar abscess EKG interpreted by me (3pts min.). @ -As above X-rays interpreted by me (1pt min.). @ -None done CT interpreted by me (1pt min.). @ -None done U/S interpreted by me (1pt. min.). @ -None done What testing was considered but not performed or refused? (CT, X-rays, U/S, labs)? Why? @ -None What meds were considered but not given or refused? Why? @ -None Did you discuss the management of the patient with other professionals (professionals i.e. ., PA, TEMPLATE INSPECTOR, lab, RT, psych nurse, bilingual social worker, screw machine setter, teacher, antisubmarine weapons officer, case management rn)? Give summary @ -No Was smoking cessation discussed for >3mins.? @ -No Was critical care preformed (if so, how long)? @ -No Were there social determinants of health that impacted care today? How? (H omelessness, low income, unemployed, alcoholism, drug addiction, transportation, low edu. Level, literacy, decrease access to med. care, fpc, rehab)? @ -No Was there de-escalation of care discussed even if they declined (Discuss DNR or withdrawal of care, Hospice)? DNR status @ -No What co-morbidities impacted this encounter? (DM, HTN, Smoking, COPD, CAD, Cancer, CVA, ARF, Chemo, Hep., AIDS, mental health diagnosis, sleep apnea, morbid obesity)? @ -None Was patient admitted / discharged? Hospital course, mention meds given and route, prescriptions, significant lab abnormalities, going to OR and other pertinent info. @ -33-year-old female with earache, and pharyngitis on exam. Patient currently on Augmentin. There is no signs of otitis media on exam. There is pharyngeal erythema, suspect a viral pharyngitis. Patient does have significant pain to the right side of the jaw and face. No chest pain. Patient may have trigeminal neuralgia by history but given the pharyngitis felt to be viral in nature. I do recommend continuing the Augmentin for the possibility of a strep pharyngitis or dental infection. She will be prescribed [place]. She is given return parameters. Undiagnosed new problem with uncertain prognosis? @ -No Drug Therapy requiring intensive monitoring for toxicity (Heparin, Nitro, Insulin, Cardizem)? @ -No Were any procedures done? @ -No Diagnosis/symptom? , earache, pharyngitis Acute, or Chronic, or Acute on Chronic? @ acute Uncomplicated (without systemic symptoms) or Complicated (systemic symptoms)? @ -Default Side effects of treatment? @ -No Exacerbation, Progression, or Severe Exacerbation? @ -No Poses a threat to life or bodily function? How? (Chest pain, [place], [place], pneumonia, PE, COPD, DKA, ARF, appy, cholecystitis, CVA, Diverticulitis, Homicidal, Suicidal, threat to staff... and all critical care pts) @ -No Disposition Clinical Impression: Pharyngitis, Ear ache Disposition: HOME SELF-CARE Condition: Good Instructions (If sedation given, give patient instructions): Earache (ED) Prescriptions: HYDROcodone/APAP 5-325MG [[place] 5-325] 1 tab PO Q6HR PRN #12 tab PRN Reason: Pain Is patient prescribed a controlled substance at d/c from ED?: No Referrals: None,Stated [Primary Care Provider] - 1-2 days
[2023-11-09 15:43] VITALS: BP 138/79; PULSE 83; TEMP 97.5
== END 2023-11-09 15:43 | disposition home or self-care (01) ==
LOC: EC 14:50
DX: J02.9 Acute pharyngitis, unspecified (principal); Z88.0 Allergy status to penicillin; Z88.1 Allergy status to other antibiotic agents; Z88.2 Allergy status to sulfonamides; Z90.49 Acquired absence of other specified parts of digestive tract
CPT/HCPCS: 99283; 96372; J1885

== ENCOUNTER 2023-11-16 23:13 | Emergency (ER) | payer MEDICAID ==
[2023-11-16 23:16] VITALS: RESP 18; TEMP 98.7
[2023-11-16 23:49] LABS: Basophils % (A) 0 %; Eosinophils # (A) 0.2 k/uL (0-0.7); Eosinophils % (A) 3 %; HCT 43.3 % (34.0-46.0); HGB 14.3 gm/dL (11.4-16.0); Lymphocytes # (A) 1.2 k/uL (1.0-4.8); Lymphocytes % (A) 16 %; MCH 30.5 pg (25.0-35.0); MCV 92.5 fL (80.0-100.0); Mean Platelet Volume 7.5; Monocytes # (A) 0.4 k/uL (0-1.0); Monocytes % (A) 6 %; Neutrophils # (A) 5.4 k/uL (1.3-7.7); Neutrophils % (A) 74 %; Platelet Count 227 k/uL (150-450); RBC 4.68 m/uL (3.80-5.40); RDW 12.8 % (11.5-15.5); WBC 7.3 k/uL (3.8-10.6)
--- NOTE | 2023-11-16 23:52 | ED ---
General Adult HPI - General Chief complaint: ENT Stated complaint: jaw pain difficulty swallowing Time Seen by Provider: 11/16/23 23:21 Source: patient Mode of arrival: ambulatory Limitations: no limitations - History of Present Illness Initial comments: Patient is a 33-year-old woman who complains of having right-sided facial pain going back approximately 2 weeks now. Patient indicates the right face from ear to angle of mandible and then to the upper portion of the neck anteriorly. The patient states that it again started approximately 2 weeks ago and that she has completed 2 courses of antibiotic and 2 courses of steroid without improvement. She also was seen by the dentist who checked and did not believe that there was a dental source of the pain or an abscess. The patient has not noted fever or chills. No eye pain or change in vision. No congestion or nasal drainage. Patient denies preceding upper respiratory. Over the course of the past 1 day or so she has noted there is swelling in the right anterior neck as well. Patient is able to swallow and does not have any dyspnea. Onset/Timin -: week(s) Location: face, neck Quality: aching Consistency: constant Improves with: none Worsens with: other (palpation) Associated Symptoms: denies other symptoms Treatments Prior to Arrival: none - Related Data Home Medications Medication Instructions Recorded Confirmed Albuterol Inhaler [Ventolin Hfa 2 puff INHALATION RT-Q6H PRN 04/03/20 06/30/22 Inhaler] Budesonide/Formoterol Fumarate 2 puff INHALATION RT-BID PRN 04/03/20 06/30/22 [Symbicort 160-4.5 Mcg Inhaler] Calcium Citrate 250 mg PO BID 03/31/22 06/30/22 Cholecalciferol [Vitamin D3 (25 25 mcg PO DAILY 03/31/22 06/30/22 Mcg = 1000 Iu)] Multivitamins, Thera [Multivitamin 1 tab PO DAILY 03/31/22 06/30/22 (formulary)] Previous Rx's Medication Instructions Recorded HYDROcodone/APAP 5-325MG [[place] 1 tab PO Q6HR PRN #12 tab 11/09/23 5-325] Azithromycin [Zithromax] 0 mg PO DIRECTED #6 tab 11/17/23 Ketorolac [Toradol] 10 mg PO Q6HR #16 tab 11/17/23 Allergies Allergy/AdvReac Type Severity Reaction Status Date / Time Penicillins Allergy Intermediate Rash/Hives Verified 11/16/23 23:16 Sulfa (Sulfonamide Allergy Swelling Verified 11/16/23 23:16 Antibiotics) shrimp Allergy Anaphylaxis Uncoded 11/16/23 23:16 Review of Systems ROS Statement: Those systems with pertinent positive or pertinent negative responses have been documented in the HPI. ROS Other: All systems not noted in ROS Statement are negative. Constitutional: Denies: fever, chills Eyes: Denies: eye pain, vision change ENT: Reports: as per HPI, ear pain, throat pain. Denies: hearing loss, congestion Respiratory: Denies: cough, dyspnea, stridor Cardiovascular: Denies: chest pain Gastrointestinal: Denies: nausea, vomiting Skin: Denies: rash Neurological: Denies: headache, weakness Past Medical History Past Medical History: Asthma, GERD/Reflux Additional Past Medical History / Comment(s): migraines, varicose veins, PRE DIABETIC PER PATIENT, UMBILICAL HERNIA History of Any Multi-Drug Resistant Organisms: None Reported Past Surgical History: Bariatric Surgery, Section, Cholecystectomy, Tubal Ligation, Uterine Ablation Additional Past Surgical History / Comment(s): D&C, Spinal tap 03/08/18, 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 Past Anesthesia/Blood Transfusion Reactions: Previous Problems w/ Anesthesia, Motion Sickness, Postoperative Nausea & Vomiting (PONV) Additional Past Anesthesia/Blood Transfusion Reaction / Comment(s): "hard to wake up" "SEVERE NAUSEA AND VOMITING " Past Psychological History: No Psychological Hx Reported Smoking Status: Never smoker Past Alcohol Use History: Occasional Past Drug Use History: None Reported - Past Family History Mother Family Medical History: No Reported History General Exam Limitations: no limitations General appearance: alert, in no apparent distress Head exam: Present: atraumatic, normocephalic Eye exam: Present: normal appearance. Absent: scleral icterus, conjunctival injection ENT exam: Present: normal oropharynx, mucous membranes moist, TM's normal bilaterally, normal external ear exam Neck exam: Present: normal inspection, tenderness, full ROM, lymphadenopathy. Absent: meningismus, thyromegaly Respiratory exam: Present: normal lung sounds bilaterally. Absent: respiratory distress, wheezes, rales, rhonchi, stridor, accessory muscle use Cardiovascular Exam: Present: regular rate, normal rhythm, normal heart sounds. Absent: systolic murmur, diastolic murmur, rubs, gallop Neurological exam: Present: alert Skin exam: Present: warm, dry, intact, normal color. Absent: rash Course Vital Signs 11/16/23 11/17/23 23:14 01:17 Temperature 98.7 F Pulse Rate 101 H 79 Respiratory 18 18 Rate Blood Pressure 147/81 138/89 O2 Sat by Pulse 97 98 Oximetry Medical Decision Making - Medical Decision Making The patient had CT scan of the soft tissue of the neck that I interpreted as not revealing any bony abnormality, any gas in the soft tissue, there is prominent salivary gland on the symptomatic side versus contralateral Was pt. sent in by a medical professional or institution (, PA, INS[employer]ANCE [employer], urgent care, hospital, or fdc...) When possible be specific @ -[No] Did you speak to anyone other than the patient for history (EMS, parent, family, police, friend...)? What history was obtained from this source @ -[No] Did you review nursing and triage notes (agree or disagree)? Why? @ -[I reviewed and agree with nursing and triage notes] Were old charts reviewed (outside hosp., previous admission, EMS record, old EKG, old radiological studies, urgent care reports/EKG's, fdc records)? Report findings @ -[No old charts were reviewed] Differential Diagnosis (chest pain, altered mental status, abdominal pain women, abdominal pain men, vaginal bleeding, weakness, fever, dyspnea, syncope, headache, dizziness, GI bleed, back pain, seizure, CVA, palpatations, mental health, musculoskeletal)? @ -[Differential Headache: Migraine, tension, cluster, carbon monoxide, central venous thrombosis, pension karma temporal arteritis, acute closure glaucoma, intercranial hemorrhage, mastoiditis, sinusitis, head injury, this is not meant to be an all-inclusive list. Differential Neck Pain: Strain, zoster, epidural abscess, vertebral osteomyelitis, discitis, fracture, subluxation, disc herniation, DJD, spinal stenosis, dissection, neck abscess, lymphoma this is not meant to be an all-inclusive list. EKG interpreted by me (3pts min.). @ -[As above] X-rays interpreted by me (1pt min.). @ -[None done] CT interpreted by me (1pt min.). @ -[I interpreted as above U/S interpreted by me (1pt. min.). @ -[None done] What testing was considered but not performed or refused? (CT, X-rays, U/S, labs)? Why? @ -[None] What meds were considered but not given or refused? Why? @ -[None] Did you discuss the management of the patient with other professionals (professionals i.e. , PA, [employer], lab, RT, psych nurse, social sciences lecturer, brownell operator, teacher, chief security and safety officer, gearcase assembler)? Give summary @ -[No] Was smoking cessation discussed for >3mins.? @ -[No] Was critical care preformed (if so, how long)? @ -[No] Were there social determinants of health that impacted care today? How? (Homelessness, low income, unemployed, alcoholism, drug addiction, transportation, low edu. Level, literacy, decrease access to med. care, shelter, rehab)? @ -[No] Was there de-escalation of care discussed even if they declined (Discuss DNR or withdrawal of care, Hospice)? DNR status @ -[No] What co-morbidities impacted this encounter? (DM, HTN, Smoking, COPD, CAD, Cancer, CVA, ARF, Chemo, Hep., AIDS, mental health diagnosis, sleep apnea, morbid obesity)? @ -[None] Was patient admitted / discharged? Hospital course, mention meds given and rout e, prescriptions, significant lab abnormalities, going to OR and other pertinent info. @ -[Patient is a 33-year-old woman here with pain to the right neck and face. There does appear to be more prominent right-sided salivary gland on the CT however does not appear at this to have abscess or other acute surgical problem. Will have patient follow-up with ENT physician for further evaluation. Dis cussed appropriate follow-up and return parameters Undiagnosed new problem with uncertain prognosis? @ -[No] Drug Therapy requiring intensive monitoring for toxicity (Heparin, Nitro, Insulin, Cardizem)? @ -[No] Were any procedures done? @ -[No] Diagnosis/symptom? @ -[Acute neck and face pain Possible sialoadenitis Acute, or Chronic, or Acute on Chronic? @ -[Acute Uncomplicated (without systemic symptoms) or Complicated (systemic symptoms)? @ -[Uncomplicated Side effects of treatment? @ -[No] Exacerbation, Progression, or Severe Exacerbation? @ -[No] Poses a threat to life or bodily function? How? (Chest pain, [place], [place], pneumonia, PE, COPD, DKA, ARF, appy, cholecystitis, CVA, Diverticulitis, Homicidal, Suicidal, threat to staff... and all critical care pts) @ -[No] - Lab Data Result diagrams: 11/16/23 23:37 11/16/23 23:37 Lab Results 11/16/23 11/16/23 Range/Units 23:37 23:37 WBC 7.3 (3.8-10.6) k/uL RBC 4.68 (3.80-5.40) m/uL Hgb 14.3 (11.4-16.0) gm/dL Hct 43.3 (34.0-46.0) % MCV 92.5 (80.0-100.0) fL MCH 30.5 (25.0-35.0) pg MCHC 33.0 (31.0-37.0) g/dL RDW 12.8 (11.5-15.5) % Plt Count 227 (150-450) k/uL MPV 7.5 Neutrophils % 74 % Lymphocytes % 16 % Monocytes % 6 % Eosinophils % 3 % Basophils % 0 % Neutrophils # 5.4 (1.3-7.7) k/uL Lymphocytes # 1.2 (1.0-4.8) k/uL Monocytes # 0.4 (0-1.0) k/uL Eosinophils # 0.2 (0-0.7) k/uL Basophils # 0.0 (0-0.2) k/uL Sodium 137 (137-145) mmol/L Potassium 3.9 (3.5-5.1) mmol/L Chloride 108 H (98-107) mmol/L Carbon Dioxide 22 (22-30) mmol/L Anion Gap 7 mmol/L BUN 28 H (7-17) mg/dL Creatinine 0.66 (0.52-1.04) mg/dL Est GFR (CKD-EPI)AfAm >90 (>60 ml/min/1.73 sqM) Est GFR (CKD-EPI)NonAf >90 (>60 ml/min/1.73 sqM) Glucose 122 H (74-99) mg/dL Calcium 9.0 (8.4-10.2) mg/dL C-Reactive Protein <0.5 (<1.0) mg/dL Amylase 74 (30-110) U/L Disposition Clinical Impression: Neck pain Disposition: HOME SELF-CARE Condition: Good Instructions (If sedation given, give patient instructions): Sialoadenitis (ED) Prescriptions: Ketorolac [Toradol] 10 mg PO Q6HR #16 tab Azithromycin [Zithromax] 0 mg PO DIRECTED #6 tab Is patient prescribed a controlled substance at d/c from ED?: No Referrals: None,Stated [Primary Care Provider] - 1-2 days Khanh Rayo MD [STAFF PHYSICIAN] - 1-2 days Sudhir Song MD [STAFF PHYSICIAN] - 1-2 days
[2023-11-17] MEDS: LIDOCAINE VISCOUS 2% 15 ML CUP MUCOUS MEM STA
[2023-11-17 00:02] LABS: African American GFR (CKD) >90 (>60 ml/min/1.73 sqM); Amylase 74 U/L (30-110); Anion Gap 7 mmol/L; Blood Urea Nitrogen 28 mg/dL (7-17); Carbon Dioxide 22 mmol/L (22-30); Chloride 108 mmol/L (98-107); Glucose 122 mg/dL (74-99); Non-African American GFR(CKD) >90 (>60 ml/min/1.73 sqM); Potassium 3.9 mmol/L (3.5-5.1); Sodium 137 mmol/L (137-145)
[2023-11-17 00:12] LABS: C Reactive Protein <0.5 mg/dL (<1.0)
--- NOTE | 2023-11-17 00:19 | CT ---
EXAMINATION TYPE: CT soft tissue neck w con DATE OF EXAM: 11/17/2023 HISTORY: Right mandible/neck pain COMPARISON: NONE CT DLP: 188.1 mGycm. Automated Exposure Control for Dose Reduction was Utilized. TECHNIQUE: CT scan of the neck is performed with IV Contrast, patient injected with 100 mL of Isovue 300, axial images are obtained, coronal and sagittal reformatted images are reviewed. FINDINGS: Airway: No gross abnormality seen. Parotid/submandibular glands: No gross abnormality seen. Carotid/Vascular Structures: No significant abnormality is seen. Osseous Structures: No significant abnormality is seen. Other: The parapharyngeal fat spaces are symmetric and maintained. No suspicious greater than 1.0 cm neck adenopathy. Multiple cavitary fillings and crowns bilaterally cause streak artifact. The mandibl e is grossly intact. Minimal mucosal thickening inferior right maxillary sinus otherwise visualized p aranasal sinuses are clear. IMPRESSION: No significant abnormality is seen to account for patient's symptoms.
[2023-11-17 01:22] VITALS: BP 138/89; PULSE 79
== END 2023-11-17 01:23 | disposition home or self-care (01) ==
LOC: EC 23:13
DX: M54.2 Cervicalgia (principal); R51.9 Headache, unspecified; Z88.0 Allergy status to penicillin; Z88.2 Allergy status to sulfonamides; Z91.013 Allergy to seafood
CPT/HCPCS: 36415; 80048; 82150; 85025; 86140; 70491; 99284; Q9967

== ENCOUNTER → 2023-12-05 | Outpatient (CLI) | payer MEDICAID ==
--- NOTE | 2023-12-28 07:53 | MR ---
Site ID [facility] Patient Diane Paredes G ID [id number] DOB105/07/[id number] EXAMINATION TYPE: MR brain w con MRI brain and internal auditory canal with contrast used for trigeminal neuralgia protocol DATE OF EXAM: 12/10/2023 12:17 PM CLINICAL INDICATION:G50.0, trigeminal neuralgia, right side face numbness. Gadavist 8 ml. COMPARISON: THIS EXAM WAS READ DURING PACS DOWNTIME, NO PRIORS AVAILABLE. TECHNIQUE: Multi planar, multi sequence imaging was performed through the brain. Specialized thin s equences were obtained through the internal auditory canals. Pre-and post gadolinium sequences were obtained. MR contrast: IV Contrast: Gadavist 8 ml. FINDINGS: A vessel closely approximates/touches the right trigeminal nerves just after it exits the b rainstem and is in contact with the general nerve series 14 image 89, series 801 image 52. The left t rigeminal nerve is without vessel. The tong-white junctions, ventricular system, and cisterns appear unremarkable. Midline structures s how no abnormality. Diffusion-weighted imaging shows no evidence of restricted diffusion. The suscept ibility weighted images do not reveal any evidence for micro-hemorrhage. The bone marrow signal is within normal limits. Paranasal sinuses and mastoid air cells: Mild scattered paranasal sinus disease. Visualized orbits: Orbital contents are intact. After administration of gadolinium, no abnormal enhancement is seen. The internal auditory canal sequences demonstrate no significant irregularity. The 7th cranial nerve s, 8 cranial nerves, and cerebellar pontine angles appear unremarkable. After the administration justine olinium, no abnormal enhancement is seen within the internal auditory canals. Vascular loop: None. IMPRESSION: 1. There is a single vessel that crosses the right trigeminal nerve and is felt to be in contact wit h the nerve. The left trigeminal nerve courses is unhindered. 2. No evidence of intracranial mass nor acute/subacute CVA. 3. No evidence of internal auditory canal abnormality.
== END | disposition home or self-care (01) ==
LOC: RADMRIMAIN 07:00
PROVIDERS: ATTEND Internal Medicine
DX: G50.0 Trigeminal neuralgia (principal)
CPT/HCPCS: 70553; A9585

== ENCOUNTER → 2023-12-08 | Outpatient (CLI) | payer MEDICAID | END | disposition home or self-care (01) | LOC: LABWHC1 12:01 | PROVIDERS: ATTEND Internal Medicine | DX: G50.0 Trigeminal neuralgia (principal) | CPT/HCPCS: 36415; 80053; 80156; 85025 ==

== ENCOUNTER → 2024-01-31 | Outpatient (CLI) | payer MEDICAID ==
[2024-01-31 15:34] LABS: ALT 30 U/L (8-44); AST 29 U/L (13-35); Albumin 4.5 g/dL (3.8-4.9); Albumin/Globulin Ratio 2.05 Ratio (1.60-3.17); Alkaline Phosphatase 59 U/L (41-126); Blood Urea Nitrogen 15.3 mg/dL (9.0-27.0); Calcium 9.5 mg/dL (8.7-10.3); Carbon Dioxide 26.8 mmol/L (21.6-31.8); Chloride 102 mmol/L (96-109); Globulin 2.2 g/dL (1.6-3.3); Glucose 86 mg/dL (70-110); Potassium 4.4 mmol/L (3.5-5.5); Sodium 140 mmol/L (135-145); Total Bilirubin 0.2 mg/dL (0.3-1.2); Total Protein 6.7 g/dL (6.2-8.2)
== END | disposition home or self-care (01) ==
LOC: LABWHC1 11:18
PROVIDERS: ATTEND Psychiatry & Neurology Neurology
DX: G50.0 Trigeminal neuralgia (principal)
CPT/HCPCS: 36415; 80053

== ENCOUNTER → 2024-03-22 | Outpatient (CLI) | payer MEDICAID ==
[2024-03-22 08:18] LABS: Appearance,Urine Cloudy (Clear); Bacteria,Urine Few /hpf; Bilirubin,Urine Negative (Negative); Blood,Urine Negative (Negative); Color,Urine Yellow; Glucose,Urine (UA) Negative (Negative); Ketones,Urine Negative (Negative); Leukocyte Esterase,Urine Large (Negative); Mucus,Urine Few /hpf; Nitrite,Urine Negative (Negative); Protein,Urine Trace (Negative); RBC,Urine 1 /hpf (0-5); Specific Gravity,Urine 1.028 (1.001-1.035); Squamous Epithelial Cell,Urine 9 /hpf (0-4); Urobilinogen,Urine <2.0 mg/dL (<2.0); WBC,Urine 75 /hpf (0-5)
[2024-03-22 10:28] LABS: HCT 41.4 % (37.2-46.3); HGB 13.9 g/dL (12.0-15.0); MCHC 33.6 g/dL (32.0-37.0); MCV 89.4 FL (80.0-97.0); Mean Platelet Volume 9.2 FL (9.5-12.2); NRBC Per 100 WBC 0 X 10*3/uL (0.00-0.01); Platelet Count 187 X 10*3/uL (140-440); RBC 4.63 X 10*6/uL (4.10-5.20)
[2024-03-22 10:40] LABS: ALT 12 U/L (8-44); AST 15 U/L (13-35); Albumin 4.5 g/dL (3.8-4.9); Albumin/Globulin Ratio 2.25 Ratio (1.60-3.17); Alkaline Phosphatase 55 U/L (41-126); BUN/Creat Ratio 23.29 Ratio (12.00-20.00); Blood Urea Nitrogen 16.3 mg/dL (9.0-27.0); Calcium 9.5 mg/dL (8.7-10.3); Carbon Dioxide 23.6 mmol/L (21.6-31.8); Chloride 104 mmol/L (96-109); Glucose 127 mg/dL (70-110); Potassium 3.7 mmol/L (3.5-5.5); Sodium 139 mmol/L (135-145); Total Bilirubin 0.3 mg/dL (0.3-1.2); Total Protein 6.5 g/dL (6.2-8.2)
== END | disposition home or self-care (01) ==
LOC: LABWHC1 07:33
PROVIDERS: ATTEND Neurological Surgery
DX: G50.0 Trigeminal neuralgia (principal)
CPT/HCPCS: 36415; 80053; 81001; 85027; 87086

== ENCOUNTER 2024-07-20 01:45 | Emergency (ER) | payer MEDICAID ==
[2024-07-20 01:55] VITALS: TEMP 98
--- NOTE | 2024-07-20 02:10 | ED ---
SOB HPI - General Chief Complaint: Shortness of Breath Stated Complaint: shortness of breath Time Seen by Provider: 07/20/24 01:48 Source: patient Mode of arrival: ambulatory Limitations: no limitations - History of Present Illness Initial Comments: This patient is a 34-year-old woman who presents evaluation for wheezing, coughing, shortness of breath. Patient has history of asthma and states that she has been having symptoms now for approximately 3 weeks. She has completed a course of azithromycin, course of Augmentin, and completed two 50 mg tapers of prednisone. Patient states that tonight while working she was becoming dyspneic with walking short distances. No fevers currently. No chest pain, diaphoresis, nausea or vomiting. MD Complaint: shortness of breath, cough, "asthma attack" -: week(s) Severity scale (1-10): 0 Consistency: constant Improves With: nothing Worsens With: nothing Known History Of: asthma Associated Symptoms: denies other symptoms Treatments Prior to Arrival: bronchodilator, other - Related Data Home Oxygen Therapy: No Home Medications Medication Instructions Recorded Confirmed Albuterol Inhaler [Ventolin Hfa 2 puff INHALATION RT-Q6H PRN 04/03/20 07/23/24 Inhaler] Budesonide/Formoterol Fumarate 2 puff INHALATION RT-BID PRN 04/03/20 07/23/24 [Symbicort 160-4.5 Mcg Inhaler] Calcium Citrate 250 mg PO BID 03/31/22 07/23/24 Cholecalciferol [Vitamin D3 (25 25 mcg PO DAILY 03/31/22 07/23/24 Mcg = 1000 Iu)] Multivitamins, Thera [Multivitamin 1 tab PO DAILY 03/31/22 07/23/24 (formulary)] Previous Rx's Medication Instructions Recorded Azithromycin [Zithromax] 0 mg PO DIRECTED #6 tab 11/17/23 Ketorolac [Toradol] 10 mg PO Q6HR #16 tab 11/17/23 Doxycycline [Vibramycin] 100 mg PO BID 1 Days #14 capsule 07/20/24 Allergies Allergy/AdvReac Type Severity Reaction Status Date / Time Penicillins Allergy Intermediate Rash/Hives Verified 11/16/23 23:16 Sulfa (Sulfonamide Allergy Swelling Verified 11/16/23 23:16 Antibiotics) shrimp Allergy Anaphylaxis Uncoded 11/16/23 23:16 Review of Systems ROS Statement: Those systems with pertinent positive or pertinent negative responses have been documented in the HPI. ROS Other: All systems not noted in ROS Statement are negative. Constitutional: Denies: fever, chills Respiratory: Reports: cough, dyspnea, wheezes. Denies: hemoptysis, stridor Cardiovascular: Reports: dyspnea on exertion. Denies: chest pain, palpitations, orthopnea, edema, syncope Gastrointestinal: Denies: abdominal pain, vomiting, diarrhea Genitourinary: Denies: dysuria Musculoskeletal: Denies: back pain Skin: Denies: rash Neurological: Denies: headache, weakness, numbness Past Medical History Past Medical History: Asthma, GERD/Reflux Additional Past Medical History / Comment(s): migraines, varicose veins, PRE DIABETIC PER PATIENT, UMBILICAL HERNIA History of Any Multi-Drug Resistant Organisms: None Reported Past Surgical History: Bariatric Surgery, Section, Cholecystectomy, Tubal Ligation, Uterine Ablation Additional Past Surgical History / Comment(s): D&C, Spinal tap 03/08/18, 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, microvscular decompression trigemal nerve Past Anesthesia/Blood Transfusion Reactions: Previous Problems w/ Anesthesia, Motion Sickness, Postoperative Nausea & Vomiting (PONV) Additional Past Anesthesia/Blood Transfusion Reaction / Comment(s): "hard to wake up" "SEVERE NAUSEA AND VOMITING " Past Psychological History: No Psychological Hx Reported Smoking Status: Never smoker Past Alcohol Use History: Occasional Past Drug Use History: None Reported - Past Family History Mother Family Medical History: No Reported History General Exam Limitations: no limitations General appearance: alert, in no apparent distress Head exam: Present: atraumatic, normocephalic Eye exam: Present: normal appearance. Absent: scleral icterus, conjunctival injection ENT exam: Present: normal oropharynx Neck exam: Present: normal inspection Respiratory exam: Present: wheezes. Absent: respiratory distress, rales, rhonchi, stridor, accessory muscle use Cardiovascular Exam: Present: regular rate, normal rhythm, normal heart sounds. Absent: systolic murmur, diastolic murmur, rubs, gallop GI/Abdominal exam: Present: soft. Absent: tenderness, guarding Extremities exam: Present: normal inspection, normal capillary refill. Absent: pedal edema, calf tenderness Back exam: Present: normal inspection Neurological exam: Present: alert Skin exam: Present: warm, dry, intact, normal color. Absent: rash Course Vital Signs 07/20/24 07/20/24 07/20/24 01:52 02:25 02:41 Temperature 98 F Pulse Rate 99 86 88 Respiratory 22 Rate Blood Pressure 119/82 O2 Sat by Pulse 98 Oximetry 07/20/24 04:56 Temperature Pulse Rate 82 Respiratory 17 Rate Blood Pressure 119/72 O2 Sat by Pulse 98 Oximetry Medical Decision Making - Medical Decision Making The patient had chest x-ray that I interpreted as negative for acute infiltrate, pneumothorax, congestive heart failure Was pt. sent in by a medical professional or institution (, PA, MANAGER LEAN, urgent care, hospital, or skilled nursing...) When possible be specific @ -[No] Did you speak to anyone other than the patient for history (EMS, parent, family, police, friend...)? What history was obtained from this source @ -[No] Did you review nursing and triage notes (agree or disagree)? Why? @ -[I reviewed and agree with nursing and triage notes] Were old charts reviewed (outside hosp., previous admission, EMS record, old EKG, old radiological studies, urgent care reports/EKG's, skilled nursing records)? Report findings @ -[No old charts were reviewed] Differential Diagnosis (chest pain, altered mental status, abdominal pain women, abdominal pain men, vaginal bleeding, weakness, fever, dyspnea, syncope, headache, dizziness, GI bleed, back pain, seizure, CVA, palpatations, mental health, musculoskeletal)? @ -[Differential Dyspnea: Coronary syndrome, arrhythmia, tamponade, asthma, COPD, pulmonary embolism, pneumonia, pneumothorax, pulmonary effusion, anaphylaxis, diabetic ketoacidosis, flailed chest, pulmonary contusion, diaphragmatic rupture, anemia, neuromuscular, this is not meant to be an all-inclusive list. EKG interpreted by me (3pts min.). @ -I interpreted as above X-rays interpreted by me (1pt min.). @ -[I interpreted as above CT interpreted by me (1pt min.). @ -[None done] U/S interpreted by me (1pt. min.). @ -[None done] What testing was considered but not performed or refused? (CT, X-rays, U/S, labs)? Why? @ -[None] What meds were considered but not given or refused? Why? @ -[None] Did you discuss the management of the patient with other professionals (professionals i.e. , PA, MANAGER LEAN, lab, RT, psych nurse, social science manager, glove stitcher, teacher, port patrol officer, caseworker intake)? Give summary @ -[No] Was smoking cessation discussed for >3mins.? @ -[No] Was critical care preformed (if so, how long)? @ -[No] Were there social determinants of health that impacted care today? How? (Homelessness, low income, unemployed, alcoholism, drug addiction, transportation, low edu. Level, literacy, decrease access to med. care, usp, rehab)? @ -[No] Was there de-escalation of care discussed even if they declined (Discuss DNR or withdrawal of care, Hospice)? DNR status @ -[No] What co-morbidities impacted this encounter? (DM, HTN, Smoking, COPD, CAD, Cancer, CVA, ARF, Chemo, Hep., AIDS, mental health diagnosis, sleep apnea, morbid obesity)? @ -[History of asthma Was patient admitted / discharged? Hospital course, mention meds given and route, prescriptions, significant lab abnormalities, going to OR and other pertinent info. @ -[Patient with history of asthma presenting with worsening of symptoms. The history and physical consistent with exacerbation of asthma. The patient did have improvement with treatment here, discussed appropriate further care and follow-up as well as return parameters. Undiagnosed new problem with uncertain prognosis? @ -[No] Drug Therapy requiring intensive monitoring for toxicity (Heparin, Nitro, Insulin, Cardizem)? @ -[No] Were any procedures done? @ -[No] Diagnosis/symptom? @ -[Acute exacerbation of asthma Acute, or Chronic, or Acute on Chronic? @ -[Acute Uncomplicated (without systemic symptoms) or Complicated (systemic symptoms)? @ -[default] Side effects of treatment? @ -[No] Exacerbation, Progression, or Severe Exacerbation? @ -[Exacerbation Poses a threat to life or bodily function? How? (Chest pain, USA, NC, pneumonia, PE, COPD, DKA, ARF, appy, cholecystitis, CVA, Diverticulitis, Homicidal, Suicidal, threat to staff... and all critical care pts) @ -[No] All treatments are based on ideal body weight as in ED triage - Lab Data Result diagrams: 07/20/24 02:01 07/20/24 02:01 Lab Results 07/20/24 07/20/24 07/20/24 Range/Units 02:01 02:01 02:01 WBC 12.5 H (3.8-10.6) k/uL RBC 5.27 (3.80-5.40) m/uL Hgb 14.9 (11.4-16.0) gm/dL Hct 46.2 H (34.0-46.0) % MCV 87.6 (80.0-100.0) fL MCH 28.2 (25.0-35.0) pg MCHC 32.2 (31.0-37.0) g/dL RDW 13.4 (11.5-15.5) % Plt Count 302 (150-450) k/uL MPV 6.7 Neutrophils % 84 % Lymphocytes % 10 % Monocytes % 4 % Eosinophils % 1 % Basophils % 0 % Neutrophils # 10.5 H (1.3-7.7) k/uL Lymphocytes # 1.3 (1.0-4.8) k/uL Monocytes # 0.5 (0-1.0) k/uL Eosinophils # 0.1 (0-0.7) k/uL Basophils # 0.0 (0-0.2) k/uL PT 11.3 (10.0-12.5) sec INR 1.0 (<1.2) APTT 24.9 (22.0-30.0) sec D-Dimer <0.17 (<0.60) mg/L FEU Sodium 137 (137-145) mmol/L Potassium 4.0 (3.5-5.1) mmol/L Chloride 104 (98-107) mmol/L Carbon Dioxide 21 L (22-30) mmol/L Anion Gap 12 mmol/L BUN 20 H (7-17) mg/dL Creatinine 0.59 (0.52-1.04) mg/dL Est GFR (CKD-EPI)AfAm >90 (>60 ml/min/1.73 sqM) Est GFR (CKD-EPI)NonAf >90 (>60 ml/min/1.73 sqM) Glucose 136 H (74-99) mg/dL Plasma Lactic Acid Luis (0.7-2.0) mmol/L Calcium 10.4 H (8.4-10.2) mg/dL Total Bilirubin 0.4 (0.2-1.3) mg/dL AST 19 (14-36) U/L ALT 24 (4-34) U/L Alkaline Phosphatase 58 (38-126) U/L Troponin I (0.000-0.034) ng/mL NT-Pro-B Natriuret Pep <20 pg/mL Total Protein 7.6 (6.3-8.2) g/dL Albumin 4.8 (3.5-5.0) g/dL 07/20/24 07/20/24 Range/Units 02:01 02:01 WBC (3.8-10.6) k/uL RBC (3.80-5.40) m/uL Hgb (11.4-16.0) gm/dL Hct (34.0-46.0) % MCV (80.0-100.0) fL MCH (25.0-35.0) pg MCHC (31.0-37.0) g/dL RDW (11.5-15.5) % Plt Count (150-450) k/uL MPV Neutrophils % % Lymphocytes % % Monocytes % % Eosinophils % % Basophils % % Neutrophils # (1.3-7.7) k/uL Lymphocytes # (1.0-4.8) k/uL Monocytes # (0-1.0) k/uL Eosinophils # (0-0.7) k/uL Basophils # (0-0.2) k/uL PT (10.0-12.5) sec INR (<1.2) APTT (22.0-30.0) sec D-Dimer (<0.60) mg/L FEU Sodium (137-145) mmol/L Potassium (3.5-5.1) mmol/L Chloride (98-107) mmol/L Carbon Dioxide (22-30) mmol/L Anion Gap mmol/L BUN (7-17) mg/dL Creatinine (0.52-1.04) mg/dL Est GFR (CKD-EPI)AfAm (>60 ml/min/1.73 sqM) Est GFR (CKD-EPI)NonAf (>60 ml/min/1.73 sqM) Glucose (74-99) mg/dL Plasma Lactic Acid Luis 1.9 (0.7-2.0) mmol/L Calcium (8.4-10.2) mg/dL Total Bilirubin (0.2-1.3) mg/dL AST (14-36) U/L ALT (4-34) U/L Alkaline Phosphatase (38-126) U/L Troponin I <0.012 (0.000-0.034) ng/mL NT-Pro-B Natriuret Pep pg/mL Total Protein (6.3-8.2) g/dL Albumin (3.5-5.0) g/dL - EKG Data -: EKG Interpreted by Ia EKG shows normal: sinus rhythm, axis (Normal), intervals (Normal), QRS complexes (Normal), ST-T waves (Normal) Rate: normal (Rate 93 bpm) Interpretation: normal EKG Disposition Clinical Impression: Asthma exacerbation Disposition: HOME SELF-CARE Condition: Good Instructions (If sedation given, give patient instructions): Asthma (ED) Prescriptions: Doxycycline [Vibramycin] 100 mg PO BID 1 Days #14 capsule Is patient prescribed a controlled substance at d/c from ED?: No Referrals: None,Stated [REFERRING] - 1-2 days Maikol Prabhakar DO [Doctor of Osteopathic Medicine] - 1-2 days
[2024-07-20] MEDS: IPRATROPIUM-ALBUTEROL 3 ML NEB INHALATION STA (02:23)
[2024-07-20] MEDS: ALBUTEROL NEBULIZED 2.5 MG/3 ML INHALATION STA (02:23)
[2024-07-20 02:40] LABS: Basophils % (A) 0 %; Eosinophils # (A) 0.1 k/uL (0-0.7); Eosinophils % (A) 1 %; HCT 46.2 % (34.0-46.0); HGB 14.9 gm/dL (11.4-16.0); Lymphocytes # (A) 1.3 k/uL (1.0-4.8); Lymphocytes % (A) 10 %; MCH 28.2 pg (25.0-35.0); MCHC 32.2 g/dL (31.0-37.0); MCV 87.6 fL (80.0-100.0); Mean Platelet Volume 6.7; Monocytes # (A) 0.5 k/uL (0-1.0); Monocytes % (A) 4 %; Neutrophils # (A) 10.5 k/uL (1.3-7.7); Neutrophils % (A) 84 %; Platelet Count 302 k/uL (150-450); RBC 5.27 m/uL (3.80-5.40); RDW 13.4 % (11.5-15.5); WBC 12.5 k/uL (3.8-10.6)
[2024-07-20 02:53] LABS: ALT 24 U/L (4-34); AST 19 U/L (14-36); African American GFR (CKD) >90 (>60 ml/min/1.73 sqM); Albumin 4.8 g/dL (3.5-5.0); Alkaline Phosphatase 58 U/L (38-126); Anion Gap 12 mmol/L; Blood Urea Nitrogen 20 mg/dL (7-17); Calcium 10.4 mg/dL (8.4-10.2); Carbon Dioxide 21 mmol/L (22-30); Chloride 104 mmol/L (98-107); Glucose 136 mg/dL (74-99); Non-African American GFR(CKD) >90 (>60 ml/min/1.73 sqM); Sodium 137 mmol/L (137-145); Total Bilirubin 0.4 mg/dL (0.2-1.3); Total Protein 7.6 g/dL (6.3-8.2)
--- NOTE | 2024-07-20 02:53 | XR ---
EXAM: XR Chest, 2 Views CLINICAL HISTORY: ITS.REASON XR Reason: difficulty breathing TECHNIQUE: Frontal and lateral views of the chest. COMPARISON: No relevant prior studies available. FINDINGS: Lungs: No consolidation or mass. Pleural space: No effusion. Heart: No cardiomegaly. Bones/joints: No acute findings. IMPRESSION: No acute cardiopulmonary process.
[2024-07-20 03:02] LABS: NT-Pro-B-Type Natriuretic Pept <20 pg/mL
[2024-07-20 04:04] LABS: Partial Thromboplastin Time 24.9 sec (22.0-30.0); Prothrombin Time 11.3 sec (10.0-12.5)
[2024-07-20 04:57] VITALS: BP 119/72; PULSE 82; RESP 17
== END 2024-07-20 04:56 | disposition home or self-care (01) ==
LOC: EC 01:45
DX: J45.901 Unspecified asthma with (acute) exacerbation (principal); Z88.0 Allergy status to penicillin; Z88.2 Allergy status to sulfonamides; Z91.013 Allergy to seafood
CPT/HCPCS: 36415; 71046; 80053; 83605; 83880; 84484; 85025; 85379; 85610; 85730; 93005; 94640; 99285

== ENCOUNTER 2024-07-23 13:10 | Day surgery (SDC) | payer MEDICAID ==
[2024-07-23] MEDS: LIDOCAINE 2% INJ 20 MG/ML INTRATRACH ONE ×3 (13:29→13:54)
[2024-07-23] MEDS: LIDOCAINE 2% GLYDO JELLY 6 ML APPL TOPICAL ONE ×2 (13:29→13:54)
[2024-07-23 13:33] VITALS: TEMP 97.9
[2024-07-23] MEDS ORDERED: LACTATED RINGERS 1,000 ML IV SCH (13:40)
[2024-07-23] MEDS: LACTATED RINGERS 1,000 ML IV SCH (13:41)
[2024-07-23] MEDS: DEXAMETHASONE SOD PHOSPHATE 4 MG/ML 1 ML VIAL IVP STA (13:43)
[2024-07-23] MEDS: ONDANSETRON 4 MG/2 ML VIAL IVP STA (13:43)
[2024-07-23] MEDS: FAMOTIDINE 20 MG/2 ML VIAL IV STA (13:44)
[2024-07-23] MEDS: IV FLUID CONTINUATION 1,000 ML IV ONE (13:45)
[2024-07-23] MEDS ORDERED: LIDOCAINE 2% (PF) 20 MG/ML 5 ML VIAL ONE (13:46)
[2024-07-23] MEDS ORDERED: PROPOFOL 10 MG/ML 20 ML VIAL IV ONE (13:46)
[2024-07-23] MEDS ORDERED: diphenhydrAMINE 50 MG/ML 1 ML VIAL ONE (13:46)
[2024-07-23 14:57] VITALS: RESP 18
[2024-07-23 14:58] VITALS: BP 96/52; PULSE 79
--- NOTE | 2024-07-23 20:36 | PCN ---
PROCEDURE NOTE PROCEDURES PERFORMED: Bronchoscopy, airway examination, therapeutic lavage, BAL right middle lobe. PREOPERATIVE DIAGNOSIS: Severe persistent asthma. POSTOPERATIVE DIAGNOSIS: Severe persistent asthma. SENIOR WINDOWS ADMINISTRATOR: Dr. Prabhakar. FIRST BELT TURNER: Dr. Ana Altman. ANESTHESIA PROVIDED: Monitored anesthesia care. DESCRIPTION OF PROCEDURE: The patient's procedure was done in room #1 [facility]. There was informed consent and universal timeout. After the patient was adequately sedated and being fully monitored, the bronchoscope was inserted through the left nostril. It passed through the left nasopharynx into the oropharynx. The hypopharynx was identified. The hypopharyngeal structures, including anterior commissure, true cords, false cords, arytenoids, piriform sinuses, right and left, vallecula, and epiglottis, all appeared relatively normal. The glottic opening was topicalized. The bronchoscope was pushed through the glottic opening into the trachea. Trachea appeared relatively normal. The trachea did exhibit some mild acute inflammation. Tracheal nathan was sharp. The right and left mainstem were topicalized. The right upper lobe and its 3 segments, right middle lobe and its 2 segments, right lower lobe and its 5 segments, left upper lobe proper and its 2 segments, lingula and its 2 segments and left lower lobe and its 4 segments all had similar findings of severe airway inflammation. The airways were inflamed, erythematous, and hyperemic. There was some mucosal friability. There was vascular engorgement. There was no dominant mass or tumor. There were secretions noted throughout. They were frothy. The bronchoscope was then wedged into the right middle lobe. A formal BAL took place. 30 mL of fluid was recovered. The fluid will be sent for analysis. Additional secretions were suctioned with the aid of saline lavage. The bronchoscope will be withdrawn. The patient will be recovered. There was no immediate complication. The patient did tolerate the procedure well. MMODL / IJN: [id number] /
[2024-07-24 05:37] LABS: Appearance,BF Cloudy (Clear)
== END 2024-07-23 15:00 | disposition home or self-care (01) ==
LOC: ORWHC2ENDO 13:10
PROVIDERS: ATTEND Internal Medicine Critical Care Medicine
DX: J45.50 Severe persistent asthma, uncomplicated (principal); E11.9 Type 2 diabetes mellitus without complications; K21.9 Gastro-esophageal reflux disease without esophagitis; E66.9 Obesity, unspecified; U07.1 COVID-19; Z68.32 Body mass index [BMI] 32.0-32.9, adult; Z88.0 Allergy status to penicillin; Z88.2 Allergy status to sulfonamides; Z91.013 Allergy to seafood; Z79.51 Long term (current) use of inhaled steroids; Z79.899 Other long term (current) drug therapy
CPT/HCPCS: 81025; 89050; 87070; 87205; 87116; 87102; 87206; 31624; J1200; J1100; J2405; J3490; J2704; J2003 ×2; 88108; 88305